=== PATIENT | male | born 1945 | race Caucasian/White ===

== ENCOUNTER → 2025-02-19 | Outpatient (CLI) | payer MEDICARE, SELFPAY ==
--- OUTSIDE RECORDS SUMMARY | 2025-02-19 06:04 | XMS RPT_ITS | CCD ---
Author Organization [facility] Care Team Providers Care Media Marketing Manager Name Role Phone Hope Ingram Unavailable Unavailable Marek Rod MD Unavailable TYREE DO, DR SHON Harrison Primary Care Physician [phone] Mala García PT Unavailable Unavailable TYREE DO, DR MENENDEZ A Primary Care Physician RIDER DO, DR VIVI Canchola Attending Unavailable TYREE DO, DR SHON Harrison Primary Care Unavailabl e TYREE DO, DR SHON Harrison Attending Unavailabl e TYREE DO, DR SHON Harrison Primary Care Unavailabl e TYREE DO, DR SHON Harrison Primary Care Unavailabl e TYREE DO, DR SHON Harrison Attending Unavailabl e TYREE DO, DR SHON Harrison Primary Care Unavailabl e FROMMELT DO, KATELYN Attending Unavailable SIRENA GARCIA Attending Unav ailable TYREE DO, DR SHON Harrison Primary Care Unavailabl e TYREE DO, DR SHON Harrison Primary Care Unavailabl e COBLENSEVEN LEVINE Attending Unavailable COBLENTZSEVEN Attending Unavailable TYREE DO, DR SHON Harrison Primary Care Unavailabl e TYREE DO, DR SHON Harrison Primary Care Unavailabl e TYREE DO, DR SHON Harrison Attending Unavailabl e TYREE DO, DR SHON Harrison Primary Care Unavailabl e TYREE DO, DR SHON Harrison Attending Unavailabl e TYREE DO, DR SHON Harrison Primary Care Unavailabl e TYREE DO, DR SHON Harrison Attending Unavailabl e TYREE DO, DR SHON Harrison Attending Unavailabl e TYREE DO, DR SHON Harrison Primary Care Unavailabl e MARGARITO GALLEGOS Attending Unavailab le TYREE DO, DR SHON Harrison Primary Care Unavailabl e CHOUJAA DOFIDEL Attending Unavailable TYREE DO, DR SHON Harrison Primary Care Unavailabl e GUME KILLIAN-BLEACH PLANT OPERATOR, SIRENA Strickland Attending Unav ailable TYREE DO, DR SHON Harrison Primary Care Unavailabl thi HOPPER MD, DR AMEZCUA Attending Unavaila ble TYREE DO, DR SHON Harrison Primary Care Unavailabl e TYREE DO, DR SHON Harrison Primary Care Unavailabl thi HOPPER MD, DR AMEZCUA Attending Unavaila ble TYREE DO, DR SHON Harrison Primary Care Unavailabl e TYREE DO, DR SHON Harrison Attending Unavailabl e TYREE DO, DR SHON Harrison Primary Care Unavailabl e FISH FELLER SEAM OPERATOR-BLEACH PLANT OPERATOR, MARGARITO Attending Unavailab le TYREE DO, DR SHON Harrison Primary Care Unavailabl e TYREE DO, DR SHON Harrison Attending Unavailabl e TYREE DO, DR SHON Harrison Primary Care Unavailabl e FISH FELLER SEAM OPERATOR-BLEACH PLANT OPERATOR, MARGARITO Attending Unavailab le TYREE DO, DR SHON Harrison Primary Care Unavailabl e TYREE DO, DR SHON Harrison Attending Unavailabl e Fish SHOT COAT TENDER, Margarito Referring Unavailable Fish SHOT COAT TENDER, Margarito Attending Unavailable Tyree, Shon Primary Care Unavailable Allergies Allergy Classification Reported Allergen(s) Allergy Type Date of Onset Reaction(s) Facility (20 sources) Hmg-Coa Reductase Inhibitors (Statins); Translations: [HMG-CoA reductase inhibitor (substance)] drug allergy 4 muscle and joint pain [facility] [place] [facility] Work Phone: (8 sources) clopidogrel; Translations: [clopidogrel] Drug Allergy Muscle pain (finding) [facility] (19 sources) Isosorbide; Translations: [isosorbide mononitrate] Drug Allergy Muscle pain (finding) [facility] Medications Current Medications Medication Drug Class(es) Dates Sig (Normalized) Sig (Original) Alcohol Swabs (5 sources) Start: 09-23-2020 Alcohol Swabs See Instructions, two times daily E11.65, # 1 EA, 0 Refill(s), Pharmacy: [address], DM (diabetes mellitus), type 2, uncontrolled Uncontrolled diabetes with stage 3 chronic kidney disease GFR 30-59, 166, cm, 09/23/20 8:50:00 Gabi HDEZ... Start Date: 09/23/20 Status: Ordered amLODIPine 10 mg oral tablet (6 sources) Dihydropyridine Calcium Channel Luna Start: 09-28-2021 amLODIPine 10 mg oral tablet Dose : 10 mg = 1 tab(s), Oral, qDay, # 90 tab(s), 3 Refill(s), [facility], 166, cm, 07/15/21 13:51:00 EDT, Height, kg, 07/15/21 13:51:00 EDT, Dosing Weight Start Date: 09/28/21 Status: Ordered Start: 09-19-2018 AMLODIPINE BES YLATE 10 MG TABS 1 tablet once daily AMLODIPINE BESYLATE [id number] Terena Garcia RN aspirin 81 mg delayed release oral tablet (15 sources) Platelet Aggregation Inhibitor, Nonsteroidal Anti-inflammatory Drug Start: 01-29-2023 aspirin 81 mg ora l delayed release tablet Dose : 81 mg = 1 tab(s), Oral, qDay, # 30 tab(s), 0 Refill(s), Pharmacy: [facility], 167, cm, 11/27/22 9:52:00 EDT, Height Start Date: 01/29/23 Status: Ordered Start: 04-10-2019 aspirin 81 mg oral tablet (chewable) Dose : 81 mg = 1 tab(s), Oral, Daily, 0 Refill(s) Start Date: 04/10/19 Status: Ordered Start: 09-19-2018 ASPIRIN 81 MG TBEC 1 tablet once daily ASPIRIN [id number] Terena Garcia RN betamethasone 0.5 mg/ml / clotrimazole 10 mg/ml topical cream (2 sources) Azole Antifungal, Corticosteroid Start: 04-25-2023 betamethasone-clotrimazole 0.05%-1% topical cream Apply 1 estrellita, Topical, BID, # 15 gram(s), 2 Refill(s), Pharmacy: [facility], Cream, 167.6, cm, 04/18/23 10:31:00 EDT, Height, 112.8, kg, 04/18/23 10:31:00 EDT, Dosing Weight Start Date: 04/25/23 Status: Ordered Blood Glucose Test Machine (5 sources) Start: 09-23-2020 Blood Glucose Test Machine S ee Instructions, check blood sugar two times daily E11.65, # 1 EA, 0 Refill(s), Pharmacy: [facility] [facility], DM (diabetes mellitus), type 2, uncontrolled Uncontrolled diabetes with stage 3 chronic kidney disease GFR 30-59, 166, cm, 09/23/20... Start Date: 09/23/20 Status: Ordered cephalexin 500 mg oral capsule (1 source) Cephalosporin Antibacterial Start: 05-31-2023 End: 06-07-2023 cephalexin 500 mg oral capsu le Dose : 500 mg = 1 cap(s), Oral, q12h, X 7 day(s), # 14 cap(s), 0 Refill(s), 06/07/23 1:29:00 PM EDT, 113.1 Start Date: 05/31/23 Stop Date: 06/07/23 Status: Ordered clopidogrel 75 mg oral tablet (7 sources) P2Y12 Platelet Inhibitor Start: 08-14-2023 Plavix 75 mg oral tablet Dos e : 75 mg = 1 tab(s), Oral, qDay, # 90 tab(s), 3 Refill(s), Pharmacy: [facility] #[id number], 167.6, cm, 08/14/23 9:14:00 EST, Height, kg, 08/14/23 9:14:00 EST, Dosing Weight Start Date: 08/14/23 Status: Ordered Start: 11-08-2022 Plavix 75 mg o ral tablet Dose : 75 mg = 1 tab(s), Oral, qDay, # 90 tab(s), 2 Refill(s), Pharmacy: [facility] #[id number], 167.6, cm, 10/12/22 9:42:00 EST, Height Start Date: 11/08/22 Status: Ordered DME MISCellaneous (2 sources) Start: 05-26-2021 DME MISCellaneous See Instructions, Incentive spirometer. Use as directed. 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 Start Date: 05/26/21 Status: Ordered doxycycline hyclate 100 mg oral capsule (1 source) Tetracycline-cl ass Drug Start: 10-22-2023 End: 11-01-2023 doxycycline hyclate 100 mg oral capsule Dose : 100 mg = 1 cap(s), Oral, BID, X 10 day(s), # 20 cap(s), 0 Refill(s), 11/01/23 2:31:00 PM EST, Pharmacy: [facility] #[id number], Nasal abscess Cellulitis of nose, 166, cm, 10/22/23 14:10:00 EST, Height, 105.9, kg, 10/22/23 14:10:00 EST, Dosing Weight Start Date: 10/22/23 Stop Date: 11/01/23 Status: Ordered 1 ml evolocumab 140 mg/ml auto-injector (7 sources) PCSK9 Inhibitor Start: 11-08-2022 inject 1 dose by subcutaneous injection every other week Repatha SureClick 140 mg/mL subcutaneous solution Dose : 140 mg =, Subcutaneous, q2wk, rotate injection sites, # 6 EA, 2 Refill(s), Pharmacy: [facility] #[id number], 167.6, cm, 10/12/22 9:42:00 EST, Height Start Date: 11/08/22 Status: Ordered Start: 08-29-2022 inject 1 dose by sub cutaneous injection every other week Repatha 140 mg/mL subcutaneous solution Dose : 140 mg =, Subcutaneous, q2wk, # 2 EA, 6 Refill(s), Pharmacy: [facility] #[id number], 167.6, cm, 08/27/22 14:19:00 EST, Height Start Date: 08/29/22 Status: Ordered Start: 07-24-2022 inject 1 dose by sub cutaneous injection every other week Repatha SureClick 140 mg/mL subcutaneous solution Dose : 140 mg =, Subcutaneous, q2wk, # 2 EA, 5 Refill(s), Pharmacy: [facility] #[id number], 164, cm, 07/24/22 9:35:00 EST, Height Start Date: 07/24/22 Status: Ordered ezetimibe 10 mg oral tablet (17 sources) Dietary Cholesterol Absorption Inhibitor Start: 11-20-2024 ezetimibe 10 mg ora l tablet Dose : 10 mg = 1 tab(s), Oral, qDay, # 90 tab(s), 1 Refill(s), Pharmacy: [facility]/pharmacy #[id number], 167, cm, 11/20/24 10:30:00 EDT, Height, kg, 11/20/24 10:30:00 EDT, Dosing Weight Start Date: 11/20/24 Status: Ordered Quantity: 90.0 Unit: tab(s) Repeat number: 2 Start: 06-02-2024 ezetimibe 10 m g oral tablet Dose : 10 mg = 1 tab(s), Oral, qDay, # 90 tab(s), 1 Refill(s), Pharmacy: [facility]/pharmacy #[id number], 165.5, cm, 05/29/24 10:35:00 EDT, Height, kg, 05/29/24 10:35:00 EDT, Dosing Weight Start Date: 06/02/24 Status: Ordered Start: 11-20-2023 ezetimibe 10 m g oral tablet Dose : 10 mg = 1 tab(s), Oral, qDay, # 90 tab(s), 1 Refill(s), [id number], 166, cm, 10/22/23 14:10:00 EST, Height, kg, 10/22/23 14:10:00 EST, Dosing Weight Start Date: 11/20/23 Status: Ordered Start: 09-21-2022 ezetimibe 10 m g oral tablet Dose : 10 mg = 1 tab(s), Oral, qDay, # 90 tab(s), 3 Refill(s), Pharmacy: [facility] #[id number], 167.6, cm, 09/21/22 9:24:00 EST, Height Start Date: 09/21/22 Status: Ordered Start: 08-27-2022 ezetimibe 10 m g oral tablet Dose : 10 mg = 1 tab(s), Oral, qDay, # 90 tab(s), 0 Refill(s) Start Date: 08/27/22 Status: Ordered Start: 09-28-2021 Zetia 10 mg or al tablet Dose : 10 mg = 1 tab(s), Oral, qDay, # 90 tab(s), 3 Refill(s), [facility]: [facility] 166, cm, 07/15/21 13:51:00 EDT, Height, kg, 07/15/21 13:51:00 EDT, Dosing Weight Start Date: 09/28/21 Status: Ordered furosemide 20 mg oral tablet (14 sources) Loop Diuretic Start: 02-22-2021 furosemide 20 mg oral tablet Dose : 20 mg = 1 tab(s), Oral, qDay, As needed for swelling, # 30 tab(s), 0 Refill(s), [facility] [address] 166, cm, 09/23/20 8:50:00 EST, Height, kg, 09/23/20 8:50:00 EST, Dosing Weight Start Date: 02/22/21 Status: Ordered glipiZIDE er 2.5 mg 24 hr extended release oral tablet (3 sources) Sulfonylurea Start: 08-27-2022 glipiZIDE 2.5 mg oral tablet, extended release Dose : 2.5 mg = 1 tab(s), Oral, qDayM, 0 Refill(s) Start Date: 08/27/22 Status: Ordered meloxicam 15 mg oral tablet (2 sources) Nonsteroidal Anti-inflammatory Drug Start: 08-27-2022 meloxicam 15 mg o ral tablet Dose : 15 mg = 1 tab(s), Oral, qDay, Take with food/milk, # 30 tab(s), 0 Refill(s) Start Date: 08/27/22 Status: Ordered Start: 10-13-2021 meloxicam 15 m g oral tablet Dose : 15 mg = 1 tab(s), Oral, qDay, once daily as needed for inflammation, # 90 tab(s), 1 Refill(s), [facility] [address] Tendinopathy of left shoulder, 166, cm, 10/13/21 8:05:00 EST, Height, kg, 10/13/21 8:05:00 EST, Dosing Weight Start Date: 10/13/21 Status: Ordered metoprolol tartrate 50 mg oral tablet (20 sources) beta-Adrenergic Luna Start: 10-08-2024 Metopr olol Tartrate 50 mg oral tablet Dose : 50 mg = 1 tab(s), Oral, BID, # 180 tab(s), 3 Refill(s), Pharmacy: [facility]/pharmacy #[id number], Hypertension Frequent PVCs, 167.6, cm, 08/26/24 10:21:00 EST, Height, kg, 08/26/24 10:21:00 EST, Dosing Weight Start Date: 10/08/24 Status: Ordered Quantity: 180.0 Unit: tab(s) Repeat number: 4 Indications: Essential (primary) hypertension; Ventricular premature depolarization; Start: 06-02-2024 Metoprolol Tar trate 50 mg oral tablet Dose : 50 mg = 1 tab(s), Oral, BID, # 60 tab(s), 1 Refill(s), Pharmacy: [facility]/pharmacy #[id number], Hypertension Frequent PVCs, 165.5, cm, 05/29/24 10:35:00 EDT, Height, kg, 05/29/24 10:35:00 EDT, Dosing Weight Start Date: 06/02/24 Status: Ordered Start: 11-20-2023 Metoprolol Tar trate 50 mg oral tablet Dose : 50 mg = 1 tab(s), Oral, BID, # 60 tab(s), 1 Refill(s), Pharmacy: [facility] #[id number], Hypertension Frequent PVCs, 166, cm, 01/11/24 9:24:00 EDT, Height, kg, 01/11/24 9:24:00 EDT, Dosing Weight Start Date: 01/11/24 Status: Ordered Start: 07-13-2023 Metoprolol Tar trate 50 mg oral tablet Dose : 50 mg = 1 tab(s), Oral, qDay, 0 Refill(s) Start Date: 07/13/23 Status: Ordered Start: 09-21-2022 End: 10-13-2022 Metoprolol Tartrate 50 mg or al tablet Start: 10/13/22 10:33:00 EST, Dose = 50 mg, = 1 tab(s), Oral, 0, 10/13/22 10:13:00 EST Start Date: 10/13/22 Stop Date: 10/13/22 Status: Completed Start: 08-28-2022 End: 08-29-2022 metoprolol succinate 25 mg o ral TABLET extended release Start: 08/29/22 8:00:00 EST, Dose = 25 mg, = 1 tab(s), Oral, give with food, 0, 08/28/22 15:06:00 EST Start Date: 08/29/22 Stop Date: 08/29/22 Status: Completed Start: 08-28-2022 End: 08-28-2022 Lopressor Start: 08/28/22 8: 00:00 EST, Dose = 25 mg, = 1 tab(s), Oral, 08/27/22 14:48:00 EST Start Date: 08/28/22 Stop Date: 08/28/22 Status: Completed Start: 09-28-2021 Metoprolol Tar trate 50 mg oral tablet Dose : 50 mg = 1 tab(s), Oral, qDay, # 90 tab(s), 3 Refill(s), [facility]: [facility] 166, cm, 07/15/21 13:51:00 EDT, Height, kg, 07/15/21 13:51:00 EDT, Dosing Weight Start Date: 09/28/21 Status: Ordered Start: 07-10-2014 METOPROLOL TAR TRATE 50 MG TABS 1 tablet once daily METOPROLOL TARTRATE [id number] Chaitanya Garcia RN predniSONE 20 mg oral tablet (1 source) Start: 01-23-2024 End: 01-30-2024 take 2 tablets by mouth once daily, then take 1 tablet by mouth at mealtime predniSONE 20 mg oral tablet See Instructions, 2 tabs daily for 5 days, then 1 tab for 2 days. with food or milk, # 12 tab(s), 0 Refill(s), 01/30/24 1:50:00 PM EDT, Pharmacy: [facility] #[id number], 166, cm, 01/23/24 13:07:00 EDT, Height, kg, 01/11/24 9:24:00 EDT, Dosing Weight Start Date: 01/23/24 Stop Date: 01/30/24 Status: Ordered ticagrelor 90 mg oral tablet (3 sources) Start: 08-29-2022 ticagrelor 90 mg oral tablet Dose : 90 mg = 1 tab(s), Oral, q12h, # 60 tab(s), 3 Refill(s), Pharmacy: [facility] #[id number], 167.6, cm, 08/27/22 14:19:00 EST, Height Start Date: 08/29/22 Status: Ordered tiZANidine 4 mg oral tablet (1 source) Central alpha-2 Adrenergic Agonist Start: 01-11-2024 tiZANidine 4 mg oral tablet Dose : 4 mg = 1 tab(s), Oral, q8h, # 30 tab(s), 0 Refill(s), Pharmacy: [facility] #[id number], Strain of muscle of right groin region, 166, cm, 01/11/24 9:24:00 EDT, Height, kg, 01/11/24 9:24:00 EDT, Dosing Weight Start Date: 01/11/24 Status: Ordered triamcinolone acetonide 0.001 mg/mg oral paste (19 sources) Corticosteroid Start: 11-20-2024 triamcinolone 0.1% topical paste Apply 1 estrellita, Topical, BID, 16 oz. jar. Apply to Armpit and Groin as needed for itching, # 454 gram(s), 1 Refill(s), Pharmacy: [facility]/pharmacy #[id number], Paste, 167, cm, 11/20/24 10:30:00 EDT, Height, 101.3, kg, 11/20/24 10:30:00 EDT, Dosing Weight Start Date: 11/20/24 Status: Ordered Quantity: 454.0 Unit: g Repeat number: 2 Start: 05-26-2021 triamcinolone 0.1% topical paste Apply 1 estrellita, Topical, BID, 16 oz. jar. Apply to Armpit and Groin as needed for itching, # 454 gram(s), 1 Refill(s), [facility]: [facility] Paste, 166, cm, 05/26/21 11:28:00 EDT, Height, 115.3, kg, 05/26/21 11:28:00 EDT, Dosing Weight Start Date: 05/26/21 Status: Ordered Completed/Discontinued Medications Medication Drug Class(es) Dates Sig (Normalized) Sig (Original) losartan potassium 100 mg oral tablet (1 source) Angiotensin 2 Receptor Luna Start: 09-19-2018 LOSARTAN POTASSIUM 100 MG TABS 1 tablet once daily LOSARTAN POTASSIUM [id number] Terena Garcia RN naproxen sodium 220 mg oral tablet (1 source) Nonsteroidal Anti-inflammatory Drug Start: 07-10-2014 ALEVE 220 MG TABS takes 1 tablet as needed NAPROXEN SODIUM [id number] 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 Problems Active Problems Problem Classification Problem Date Documented Da te Episodic/Chronic Abdominal pain (1 source) Lower abdominal pain; Translations: [Lower abdominal pain, unspecified] Onset: 01-10-2024 Episodic Acute and unspecified renal failure (1 source) Acute renal failure syndrome; Translations: [Acute kidney failure, unspecified] Episodic Acute myocardial infarction (1 source) Non-ST elevation (NSTEMI) myocardial infarction; Translations: [Non-ST elevation (NSTEMI) myocardial infarction] Chronic Cardiac dysrhythmias (1 source) Ventricular premature depolarization; Translations: [Ventricular premature depolarization] Onset: 02-13-2025 Chronic Chronic kidney disease (5 sources) Chronic kidney disease stage 3; Translations: [Chronic kidney disease, stage 3 unspecified] Chronic Complication of device; implant or graft (1 source) Stenosis due to any device, implant AND/OR graft; Translations: [Stenosis of other cardiac prosthetic devices, implants and grafts, initial encounter] Episodic Coronary atherosclerosis and other heart disease (20 sources) Coronary arteriosclerosis; Translations: [Coronary atherosclerosis] Onset: 02-13-2025 03-03-2020 Chronic Comment on above: History of angioplas ty for which I do not have a report, bypass surgery in 2009. He is having more symptoms similar to when he needed bypass surgery. EKG in room shows nonspecific T wave changes. Suspect CAD is worsened. Coronary atherosclerosis and other heart disease (1 source) Aortocoronary bypass graft present; Translations: [Presence of aortocoronary bypass graft] Episodic Diabetes mellitus with complications (5 sources) Chronic kidney disease due to type 2 diabetes mellitus; Translations: [Type 2 diabetes mellitus with diabetic chronic kidney disease] Chronic Diabetes mellitus without complication (20 sources) Diabetic - good control; Translations: [Type 2 diabetes mellitus without complications] Onset: 05-29-2024 03-15-2020 Chronic Diseases of white blood cells (10 sources) Leukocytosis 09-11-2023 Chronic Disorders of lipid metabolism (20 sources) Hyperlipidemia; Translations: [Hyperlipidemia, unspecified] 12-29-2021 Chronic E Codes: Fall (10 sources) Fall in home 09-11-2023 Essential hypertension (20 sources) Hypertensive disorder; Translations: [Essential hypertension] 03-03-2015 Chronic Comment on above: Blood pressure goal is less than 140/90. Checks labs through PCP. Tolerating medication. 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 Patient peña ving difficulty doing ADLs. Cardiac venous pulmonary. He had PFTs completed today. With his history and abnormal EKG in office suspect CAD is worsened. Other lower respiratory disease (2 sources) Cough 12-29-2024 Episodic Other lower respiratory disease (1 source) Shortness of breath; Translations: [Shortness of breath] Onset: 02-13-2025 Episodic Other nervous system disorders (1 source) Abnormal gait; Translations: [Other abnormalities of gait and mobility] Episodic Other non-traumatic joint disorders (4 sources) Hip pain 02-05-2024 Episodic Other nutritional; endocrine; and metabolic disorders (10 sources) Morbid obesity 07-13-2023 Chronic Residual codes; unclassified (20 sources) Obstructive sleep apnea syndrome; Translations: [Obstructive sleep apnea (adult) (pediatric)] 03-03-2020 Chronic Comment on above: On CPAP at night, to lerating well. Residual codes; unclassified (1 source) Past history of procedure; Translations: [Other specified postprocedural states] Episodic Spondylosis; intervertebral disc disorders; other back problems (20 sources) Degeneration of lumbar intervertebral disc; Translations: [Other intervertebral disc degeneration, lumbar region] 03-15-2020 Chronic Spondylosis; intervertebral disc disorders; other back problems (20 sources) Stenosis of lateral recess of lumbar spine; Translations: [Spinal stenosis of lumbar region] Onset: 12-18-2016 12-18-2016 Episodic Syncope (19 sources) Syncope and collapse 09-21-2020 Episodic Unclassified (1 source) Unknown / UNK(Unknown) Onset: 07-21-2017 Unclassified (1 source) History of left ankle arthroplasty; Translations: [Presence of left artificial ankle joint] Onset: 12-16-2018 12-16-2018 Unclassified (20 sources) Patient encounter status; Translations: [Presence of left artificial hip joint] Onset: 08-22-2017 08-23-2017 Urinary tract infections (11 sources) Urinary tract infectious disease; Translations: [Urinary tract infection, site not specified] Onset: 05-31-2023 Episodic Past or Other Problems Problem Classification Problem Date Documented Da te Episodic/Chronic Other upper respiratory disease (2 sources) Abscess, furuncle and carbuncle of nose; Translations: [Abscess, furuncle and carbuncle of nose] Onset: 10-22-2023 Episodic Residual codes; unclassified (1 source) History of operative procedure on shoulder; Translations: [Presence of right artificial shoulder joint] Onset: 09-29-2015 09-29-2015 Episodic Unclassified (1 source) CONGESTION,COUGH Onset: 07-21-2017 Unclassified (1 source) Problem Results Test Name Value Interpretation Reference Range Facility XR CHEST 2 VIEWSon XR CHEST 2 VIEWS ORIGINAL EXAMINATION: TWO XRAY VIEWS OF THE CHEST 01/19/2025 12:05 pm COMPARISON: 09/03/2023 HISTORY: ORDERING SYSTEM PROVIDED HISTORY: Reason for Exam: SOB FINDINGS: Pulmonary vascular cephalization and veiling of the lower lobe vessels is noted. There is blunting of the costophrenic angles. Heart is not enlarged. Patient status post coronary bypass graft. Skeletal elements remain intact. IMPRESSION: 1. Mild pulmonary edema pattern. 2. Status post coronary bypass graft. Interpreted by: Dick Dave DO Preliminary Report By: Dick Dave DO Electronically signed By Dick Dave DO Dictated Date: 01/20/2025 4:55:01 PM Prelim Date: 01/20/2025 4:55:35 PM Sign Date: 01/20/2025 4:55:35 PM Ordering Provider: MARGARITO RIVERO Normal [facility] .Auto Diffon 01-19-2025 Basophil, Absolute 0.0 10 3/mcL Normal 0.0-0.3 [facility] Comment on above: Performed By: #### G FR, CMP, PBNP, LIPID, ANEU, ADIFF, CBC, TSH #### [address] [address] Basophils/100 WBC (Bld) 0.7 % Normal 0.0-2.5 [facility] Comment on above: Performed By: #### G FR, CMP, PBNP, LIPID, ANEU, ADIFF, CBC, TSH #### [address] [address] Eosinophil, Absolute 0.2 10 3/mcL Normal 0.0-0.7 [facility] Comment on above: Performed By: #### G FR, CMP, PBNP, LIPID, ANEU, ADIFF, CBC, TSH #### [address] [address] Eosinophils/100 WBC (Bld) 2.6 % Normal 0.0-6.0 [facility] Comment on above: Performed By: #### G FR, CMP, PBNP, LIPID, ANEU, ADIFF, CBC, TSH #### [address] [address] Lymphocyte, Absolute 1.3 10 3/mcL Normal 0.9-4.3 [facility] Comment on above: Performed By: #### G FR, CMP, PBNP, LIPID, ANEU, ADIFF, CBC, TSH #### [address] [address] Lymphocytes/100 WBC (Bld) 18.9 % Low 20.0-40.0 [facility] Comment on above: Performed By: #### G FR, CMP, PBNP, LIPID, ANEU, ADIFF, CBC, TSH #### [address] [address] Monocyte, Absolute 0.6 10 3/mcL Normal 0.1-1.4 [facility] Comment on above: Performed By: #### G FR, CMP, PBNP, LIPID, ANEU, ADIFF, CBC, TSH #### [address] [place], [place] [address] Monocytes/100 WBC (Bld) 8.7 % Normal 2.0-13.0 [facility] Comment on above: Performed By: #### G FR, CMP, PBNP, LIPID, ANEU, ADIFF, CBC, TSH #### [address] [place], [place] [address] Neutrophils/100 WBC (Bld) 69.1 % Normal 50.0-75.0 [facility] Comment on above: Performed By: #### G FR, CMP, PBNP, LIPID, ANEU, ADIFF, CBC, TSH #### [address] [address] .GFRon 01-19-2025 Estimated Glomerular Filtration Rate 60 ml/min/1.73sqm Normal [facility] Comment on above: Result Comment: Stages of Chronic Kidney Disease (CKD) Stage Description eGFR(ml/min/1.73 sq.m.) CKD 1 Normal kidney function or >=90 normal kindney function with possible kidney damage (ex. Proteinuria) CKD 2 Kidney damage with mild loss 60-89 of kidney function CKD 3a Mild to moderate loss of kidney 45-59 function CKD 3b Moderate to severe loss of 30-44 of kindey function CKD 4 Severe loss of kidney function 15-29 CKD 5 Kidney failure <15 Note: (go live 2024) the eGFR calculation was updated to the 2020 CKD-EPI creatinine equation without a race factor to calculate the eGFR results. Performed By: #### G FR, CMP, PBNP, LIPID, ANEU, ADIFF, CBC, TSH #### [address] [place], [place] [address] .NEUABSon 01-19-2025 Neutrophil, Absolute 4.7 10 3/mcL Normal 2.3-8.1 [facility] Comment on above: Performed By: #### G FR, CMP, PBNP, LIPID, ANEU, ADIFF, CBC, TSH #### [address] [address] CBCon 01-19-2025 Erythrocyte distribution width (RBC) [Ratio] 18.0 % High 11.5-15.5 [facility] Comment on above: Performed By: #### G FR, CMP, PBNP, LIPID, ANEU, ADIFF, CBC, TSH #### [address] [place], [place] [address] Hematocrit (Bld) [Volume fraction] 34.4 % Low 40.0-52.0 [facility] Comment on above: Performed By: #### G FR, CMP, PBNP, LIPID, ANEU, ADIFF, CBC, TSH #### [address] [address] Hgb 11.3 G/dL Low 13.0-17.5 [facility] Comment on above: Performed By: #### G FR, CMP, PBNP, LIPID, ANEU, ADIFF, CBC, TSH #### [address] [address] MCH (RBC) [Entitic mass] 26.9 pg Low 27.0-33.0 [facility] Comment on above: Performed By: #### G FR, CMP, PBNP, LIPID, ANEU, ADIFF, CBC, TSH #### [address] [address] MCHC 32.8 G/dL Normal 32.0-36.0 [facility] Comment on above: Performed By: #### G FR, CMP, PBNP, LIPID, ANEU, ADIFF, CBC, TSH #### [address] [address] MCV (RBC) [Entitic vol] 82.1 fL Normal 81.0-100.0 [facility] Comment on above: Performed By: #### G FR, CMP, PBNP, LIPID, ANEU, ADIFF, CBC, TSH #### [address] [address] Platelet 206 10 3/mcL Normal 150-450 [facility] Comment on above: Performed By: #### G FR, CMP, PBNP, LIPID, ANEU, ADIFF, CBC, TSH #### [address] [address] Platelet mean volume (Bld) [Entitic vol] 8.9 fL Normal 6.4-10.5 [facility] Comment on above: Performed By: #### G FR, CMP, PBNP, LIPID, ANEU, ADIFF, CBC, TSH #### [place] [address] RBC 4.19 10 6/mcL Low 4.50-6.00 [facility] Comment on above: Performed By: #### G FR, CMP, PBNP, LIPID, ANEU, ADIFF, CBC, TSH #### [place] [address] WBC 6.7 10 3/mcL Normal 4.5-10.8 [facility] Comment on above: Performed By: #### G FR, CMP, PBNP, LIPID, ANEU, ADIFF, CBC, TSH #### [address] [address] CMPon 01-19-2025 Albumin Level 3.1 G/dL Low 3.4-4.8 [facility] Comment on above: Performed By: #### G FR, CMP, PBNP, LIPID, ANEU, ADIFF, CBC, TSH #### [address] Albumin/Globulin [Mass ratio] 0.7 {ratio} Low 1.1-2.5 [facility] Comment on above: Performed By: #### G FR, CMP, PBNP, LIPID, ANEU, ADIFF, CBC, TSH #### [place] [address] ALP [Catalytic activity/Vol] 111 U/L Normal 40-135 [facility] Comment on above: Performed By: #### G FR, CMP, PBNP, LIPID, ANEU, ADIFF, CBC, TSH #### [place] [address] ALT [Catalytic activity/Vol] 9 U/L Low 16-63 [facility] Comment on above: Performed By: #### G FR, CMP, PBNP, LIPID, ANEU, ADIFF, CBC, TSH #### [address] [address] AST [Catalytic activity/Vol] 25 U/L Normal 10-40 [facility] Comment on above: Performed By: #### G FR, CMP, PBNP, LIPID, ANEU, ADIFF, CBC, TSH #### [address] [address] Bili Total 0.9 mg/dL Normal 0.2-1.0 [facility] Comment on above: Result Comment: Use of this assay is not recommended for patients undergoing treatment with eltrombopag due to the potential for falsely elevated results. Performed By: #### G FR, CMP, PBNP, LIPID, ANEU, ADIFF, CBC, TSH #### [address] [address] BUN/Creatinine Ratio 14 ratio Normal 7-27 [facility] Comment on above: Performed By: #### G FR, CMP, PBNP, LIPID, ANEU, ADIFF, CBC, TSH #### [address] [address] Calcium [Mass/Vol] 9.0 mg/dL Normal 8.4-10.2 [facility] Comment on above: Performed By: #### G FR, CMP, PBNP, LIPID, ANEU, ADIFF, CBC, TSH #### [address] [address] Chloride [Moles/Vol] 103 mmol/L Normal 98-107 [facility] Comment on above: Performed By: #### G FR, CMP, PBNP, LIPID, ANEU, ADIFF, CBC, TSH #### [address] [address] CO2 [Moles/Vol] 30 mmol/L Normal 23-31 [facility] Comment on above: Performed By: #### G FR, CMP, PBNP, LIPID, ANEU, ADIFF, CBC, TSH #### [address] [address] Creatinine [Mass/Vol] 1.23 mg/dL High 0.67-1.17 [facility] Comment on above: Performed By: #### G FR, CMP, PBNP, LIPID, ANEU, ADIFF, CBC, TSH #### [address] [address] Electrolyte Balance 7.0 mEq/L Normal 4.0-15.0 [facility] Comment on above: Performed By: #### G FR, CMP, PBNP, LIPID, ANEU, ADIFF, CBC, TSH #### [address] [address] Globulin 4.5 G/dL High 2.7-4.4 [facility] Comment on above: Performed By: #### G FR, CMP, PBNP, LIPID, ANEU, ADIFF, CBC, TSH #### [address] [address] Glucose [Mass/Vol] 123 mg/dL High 83-110 [facility] Comment on above: Performed By: #### G FR, CMP, PBNP, LIPID, ANEU, ADIFF, CBC, TSH #### [address] [address] Potassium [Moles/Vol] 4.1 mmol/L Normal 3.5-5.1 [facility] Comment on above: Performed By: #### G FR, CMP, PBNP, LIPID, ANEU, ADIFF, CBC, TSH #### [address] [address] Sodium [Moles/Vol] 140 mmol/L Normal 136-145 [facility] Comment on above: Performed By: #### G FR, CMP, PBNP, LIPID, ANEU, ADIFF, CBC, TSH #### [address] [address] Total Protein 7.6 G/dL Normal 6.4-8.2 [facility] Comment on above: Performed By: #### G FR, CMP, PBNP, LIPID, ANEU, ADIFF, CBC, TSH #### [address] [place], [place] [address] Urea nitrogen [Mass/Vol] 17 mg/dL Normal 7-18 [facility] Comment on above: Performed By: #### G FR, CMP, PBNP, LIPID, ANEU, ADIFF, CBC, TSH #### [address] [place], [place] [address] LABORATORYOrdered By: SYSTEM SYSTEM on 01-19-2025 Albumin BCP dye [Mass/Vol] 3.1 G/dL Low 3.4 - 4.8 G/dL AO ADM SS Albumin/Globulin [Mass ratio] 0.7 {ratio} Low 1.1 - 2.5 ratio AO ADM SS ALP [Catalytic activity/Vol] 111 U/L Normal 40 - 135 U/L AO ADM SS ALT With P-5'-P [Catalytic activity/Vol] 9 U/L Low 16 - 63 U/L AO ADM SS AST With P-5'-P [Catalytic activity/Vol] 25 U/L Normal 10 - 40 U/L AO ADM SS Basophils (Bld) [#/Vol] 0.0 103/mcL Normal 0.0 - 0.3 10^3/mcL AO Workflow SS Basophils/100 WBC (Bld) 0.7 % Normal 0.0 - 2.5 % AO Workflow SS Bilirubin [Mass/Vol] 0.9 mg/dL Normal 0.2 - 1 .0 mg/dL AO ADM SS Comment on above: Interpretive Data: U se of this assay is not recommended for patients undergoing treatment with eltrombopag due to the potential for falsely elevated results. Calcium [Mass/Vol] 9.0 mg/dL Normal 8.4 - 10. 2 mg/dL AO ADM SS Chloride [Moles/Vol] 103 mmol/L Normal 98 - 10 7 mmol/L AO ADM SS CO2 [Moles/Vol] 30 mmol/L Normal 23 - 31 mmol/L AO ADM SS Creatinine [Mass/Vol] 1.23 mg/dL High 0.67 - 1.17 mg/dL AO ADM SS Electrolyte Balance 7.0 mEq/L Normal 4.0 - 15 .0 mEq/L AO ADM SS Eosinophil, Absolute 0.2 103/mcL Normal 0.0 - 0 .7 10^3/mcL AO Workflow SS Eosinophils/100 WBC (Bld) 2.6 % Normal 0.0 - 6.0 % AO Workflow SS Erythrocyte distribution width (RBC) [Ratio] 18.0 % High 11.5 - 15.5 % AO Workflow SS Estimated Glomerular Filtration Rate 60 ml/min/1.73sqm Invalid Interpretation Code AO Chemistry S Comment on above: Interpretive Data: Stages of Chronic Kidney Disease (CKD) Stage Description eGFR(ml/min/1.73 sq.m.) CKD 1 Normal kidney function or >=90 normal kindney function with possible kidney damage (ex. Proteinuria) CKD 2 Kidney damage with mild loss 60-89 of kidney function CKD 3a Mild to moderate loss of kidney 45-59 function CKD 3b Moderate to severe loss of 30-44 of kindey function CKD 4 Severe loss of kidney function 15-29 CKD 5 Kidney failure <15 Note: (go live 2024) the eGFR calculation was updated to the 2020 CKD-EPI creatinine equation without a race factor to calculate the eGFR results. Globulin 4.5 G/dL High 2.7 - 4.4 G/dL AO ADM SS Glucose [Mass/Vol] 123 mg/dL High 83 - 110 mg/dL AO ADM SS Hematocrit (Bld) [Volume fraction] 34.4 % Low 40.0 - 52.0 % AO Workflow SS Hemoglobin (Bld) [Mass/Vol] 11.3 G/dL Low 13.0 - 17.5 G/dL AO Workflow SS Lymphocytes (Bld) [#/Vol] 1.3 103/mcL Normal 0.9 - 4.3 10^3/mcL AO Workflow SS Lymphocytes/100 WBC (Bld) 18.9 % Low 20.0 - 40.0 % AO Workflow SS MCH (RBC) [Entitic mass] 26.9 pg Low 27.0 - 33.0 pg AO Workflow SS MCHC 32.8 G/dL Normal 32.0 - 36.0 G/dL AO Workflow SS MCV (RBC) [Entitic vol] 82.1 fL Normal 81.0 - 100.0 fL AO Workflow SS Monocytes (Bld) [#/Vol] 0.6 103/mcL Normal 0.1 - 1.4 10^3/mcL AO Workflow SS Monocytes/100 WBC (Bld) 8.7 % Normal 2.0 - 13.0 % AO Workflow SS Natriuretic peptide.B prohormone N-Terminal [Mass/Vol] 6537 pg/mL High 0 - 450 pg/mL AO ADM SS Comment on above: Interpretive Data: N T-proBNP results of less than 300 pg/mL effectively rules out acute congestive heart failure with 99% negative predictive value. Neutrophils (Bld) [#/Vol] 4.7 103/mcL Normal 2.3 - 8.1 10^3/mcL AO Workflow SS Neutrophils/100 WBC (Bld) 69.1 % Normal 50.0 - 75.0 % AO Workflow SS Platelet mean volume (Bld) [Entitic vol] 8.9 fL Normal 6.4 - 10.5 fL AO Workflow SS Platelets (Bld) [#/Vol] 206 103/mcL Normal 150 - 450 10^3/mcL AO Workflow SS Potassium [Moles/Vol] 4.1 mmol/L Normal 3.5 - 5.1 mmol/L AO ADM SS Protein [Mass/Vol] 7.6 G/dL Normal 6.4 - 8.2 G/dL AO ADM SS RBC (Bld) [#/Vol] 4.19 106/mcL Low 4.50 - 6.0 0 10^6/mcL AO Workflow SS Sodium [Moles/Vol] 140 mmol/L Normal 136 - 145 mmol/L AO ADM SS TSH Qn 1.55 m[IU]/L Normal 0.36 - 3.74 mcIU/mL AO ADM SS Urea nitrogen [Mass/Vol] 17 mg/dL Normal 7 - 18 mg/dL AO ADM SS Urea nitrogen/Creatinine [Mass ratio] 14 ratio Normal 7 - 27 ratio AO ADM SS WBC (Bld) [#/Vol] 6.7 103/mcL Normal 4.5 - 10.8 10^3/mcL AO Workflow SS LABORATORYOrdered By: Yahaira Stein on 01-19-2025 Cholesterol [Mass/Vol] 129 mg/dL Normal 0 - 200 mg/dL AO ADM SS Comment on above: Interpretive Data: C holesterol Reference Interval: Less than 200 Desirable 200-239 Borderline high risk 240 and above High risk Cholesterol in HDL [Mass/Vol] 34 mg/dL Low 40 - 60 mg/dL AO ADM SS Cholesterol in LDL [Mass/Vol] 82 mg/dL Normal 0 - 130 mg/dL AO ADM SS Triglyceride [Mass/Vol] 66 mg/dL Normal 0 - 150 mg/dL AO ADM SS Comment on above: Interpretive Data: T riglyceride Reference Interval: Less than 150 Normal 150-199 Borderline high risk 200-499 High risk 500 or higher Very high risk LIPIDon 01-19-2025 Cholesterol [Mass/Vol] 129 mg/dL Normal 0-200 [facility] Comment on above: Result Comment: Chol esterol Reference Interval: Less than 200 Desirable 200-239 Borderline high risk 240 and above High risk Performed By: #### G FR, CMP, PBNP, LIPID, ANEU, ADIFF, CBC, TSH #### [address] [address] Cholesterol in HDL [Mass/Vol] 34 mg/dL Low 40-60 [facility] Comment on above: Performed By: #### G FR, CMP, PBNP, LIPID, ANEU, ADIFF, CBC, TSH #### [address] [address] Cholesterol in LDL [Mass/Vol] 82 mg/dL Normal 0-130 [facility] Comment on above: Performed By: #### G FR, CMP, PBNP, LIPID, ANEU, ADIFF, CBC, TSH #### [address] [address] Triglyceride [Mass/Vol] 66 mg/dL Normal 0-150 [facility] Comment on above: Result Comment: Trig lyceride Reference Interval: Less than 150 Normal 150-199 Borderline high risk 200-499 High risk 500 or higher Very high risk Performed By: #### G FR, CMP, PBNP, LIPID, ANEU, ADIFF, CBC, TSH #### [address] [address] PBNPon 01-19-2025 Natriuretic peptide B (Bld) [Mass/Vol] 6537 pg/mL High 0-450 [facility] Comment on above: Result Comment: NT-p roBNP results of less than 300 pg/mL effectively rules out acute congestive heart failure with 99% negative predictive value. Performed By: #### G FR, CMP, PBNP, LIPID, ANEU, ADIFF, CBC, TSH #### [address] [address] TSHon 01-19-2025 TSH Qn 1.55 m[IU]/L Normal 0.36-3.74 [facility] Comment on above: Performed By: #### G FR, CMP, PBNP, LIPID, ANEU, ADIFF, CBC, TSH #### [address] [place], [place] [address] LABORATORYOrdered By: Lynn Linares on 05-29-2024 Albumin DL <= 20 mg/L (U) [Mass/Vol] 2802 mcg/dL Invalid Interpretation Code AO ADM SS Albumin/Creatinine DL <= 20 mg/L (U) [Mass ratio] 29 mcg/mg Normal 0 - 30 mcg/mg AO ADM SS Creatinine (U) [Mass/Vol] 95.1 mg/dL Normal 39.0 - 259.0 mg/dL AO ADM SS MALBRon 05-29-2024 U Creatinine 95.1 mg/dL Normal 39.0-259.0 [facility] Comment on above: Performed By: #### M ALBR #### [address] [address] U Microalb 2802 mcg/dL Normal [facility] Comment on above: Performed By: #### M ALBR #### [address] [address] U Ratio Alb/Cre 29 mcg/mg Normal 0-30 [facility] Comment on above: Performed By: #### M ALBR #### [address] [address] .Auto Diffon 01-23-2024 Basophil, Absolute 0.0 10 3/mcL Normal 0.0-0.2 [facility] ([place]) Comment on above: Performed By: #### C BC, ADIFF, GFR, MDW, BMP, ANEU #### [facility] [address] [place] [address] Basophils/100 WBC (Bld) 0.3 % Normal 0.0-2.5 [facility] ([place]) Comment on above: Performed By: #### C BC, ADIFF, GFR, MDW, BMP, ANEU #### [address] [address] Eosinophil, Absolute 0.1 10 3/mcL Normal 0.0-0.4 [facility] ([place]) Comment on above: Performed By: #### C BC, ADIFF, GFR, MDW, BMP, ANEU #### [address] [address] Eosinophils/100 WBC (Bld) 0.5 % Normal 0.0-7.0 [facility] ([place]) Comment on above: Performed By: #### C BC, ADIFF, GFR, MDW, BMP, ANEU #### [address] [address] Lymphocyte, Absolute 0.7 10 3/mcL Low 0.8-3.9 [facility] ([place]) Comment on above: Performed By: #### C BC, ADIFF, GFR, MDW, BMP, ANEU #### [address] [address] Lymphocytes/100 WBC (Bld) 4.7 % Low 10.0-50.0 [facility] ([place]) Comment on above: Performed By: #### C BC, ADIFF, GFR, MDW, BMP, ANEU #### [address] [address] Monocyte, Absolute 1.5 10 3/mcL High 0.2-1.0 [facility] ([place]) Comment on above: Performed By: #### C BC, ADIFF, GFR, MDW, BMP, ANEU #### [address] [address] Monocytes/100 WBC (Bld) 10.8 % Normal 1.7-13.0 [facility] ([place]) Comment on above: Performed By: #### C BC, ADIFF, GFR, MDW, BMP, ANEU #### [address] [address] Neutrophils/100 WBC (Bld) 83.7 % High 37.0-80.0 [facility] ([place]) Comment on above: Performed By: #### C BC, ADIFF, GFR, MDW, BMP, ANEU #### [address] [address] .GFRon 01-23-2024 GFR 50 ml/min/1.73sqm Normal [facility] ([place]) Comment on above: Result Comment: GFR Population mean for , Non- Americans Ages 20-29 = 116 mL/min/1.73 sq.m. Ages 30-39 = 107 mL/min/1.73 sq.m. Ages 40-49 = 99 mL/min/1.73 sq.m. Ages 50-59 = 93 mL/min/1.73 sq.m. Ages 60-69 = 85 mL/min/1.73 sq.m. Ages 70+ = 75 mL/min/1.73 sq.m. Chronic Kidney Disease: Less than 60 mL/min/1.73 square meters End Stage Renal Disease: Less than 15 mL/min/1.73 square meters Performed By: #### C BC, ADIFF, GFR, MDW, BMP, ANEU #### [place] [address] GFR Non- 41 ml/min/1.73sqm Normal [facility] ([place]) Comment on above: Result Comment: GFR Population mean for , Non- Americans Ages 20-29 = 116 mL/min/1.73 sq.m. Ages 30-39 = 107 mL/min/1.73 sq.m. Ages 40-49 = 99 mL/min/1.73 sq.m. Ages 50-59 = 93 mL/min/1.73 sq.m. Ages 60-69 = 85 mL/min/1.73 sq.m. Ages 70+ = 75 mL/min/1.73 sq.m. Chronic Kidney Disease: Less than 60 mL/min/1.73 square meters End Stage Renal Disease: Less than 15 mL/min/1.73 square meters Performed By: #### C BC, ADIFF, GFR, MDW, BMP, ANEU #### [address] [address] .NEUABSon 01-23-2024 Neutrophil, Absolute 11.7 10 3/mcL High 2.9-6.2 A [facility] ([place]) Comment on above: Performed By: #### C OCTAVIO MARTINEZ GFR, MATTEO, BETH, ANEU #### [place] [address] B12on 01-23-2024 Cobalamin (Vitamin B12) [Mass/Vol] 1343 pg/mL High 211-911 [facility] ([place]) Comment on above: Performed By: #### C OCTAVIO MARTINEZ GFR, MATTEO, BETH, ANEU #### [place] [address] CBCon 01-23-2024 Erythrocyte distribution width (RBC) [Ratio] 14.8 % High 11.5-14.5 [facility] ([place]) Comment on above: Performed By: #### U A, UAMIC #### [place] [address] Hematocrit (Bld) [Volume fraction] 38.7 % Low 42.0-52.0 [facility] ([place]) Comment on above: Performed By: #### U A, UAMIC #### [place] [address] Hgb 13.0 G/dL Low 14.0-18.0 [facility] ([place]) Comment on above: Performed By: #### U A, UAMIC #### [place] [address] MCH (RBC) [Entitic mass] 30.2 pg Normal 27.0-31.2 [facility] ([place]) Comment on above: Performed By: #### U A, UAMIC #### [place] [address] MCHC 33.5 G/dL Normal 31.8-35.4 [facility] ([place]) Comment on above: Performed By: #### U A, UAMIC #### [place] [address] MCV (RBC) [Entitic vol] 90.4 fL Normal 80.0-94.0 [facility] ([place]) Comment on above: Performed By: #### U A, UAMIC #### [address] [address] Platelet 516 10 3/mcL High 130-400 [facility] ([place]) Comment on above: Performed By: #### Moise Harrison UAMIC #### [address] [address] Platelet mean volume (Bld) [Entitic vol] 8.0 fL Normal 7.4-10.4 [facility] ([place]) Comment on above: Performed By: #### Moise Harrison UAMIC #### [address] [address] RBC 4.29 10 6/mcL Normal 4.04-6.13 [facility] ([place]) Comment on above: Performed By: #### Moise Harrison UAMIC #### [address] [address] WBC 14.0 10 3/mcL High 4.6-10.8 [facility] ([place]) Comment on above: Performed By: #### SUSY HarrisMIC #### [address] [address] CKon 01-23-2024 CK [Catalytic activity/Vol] 52 U/L Normal 39-308 [facility] ([place]) Comment on above: Performed By: #### C OCTAVIO MARTINEZ, DANK, MATTEO, BMP, ANEU #### [address] [address] CMPon 01-23-2024 Albumin Level 2.4 G/dL Low 3.4-4.8 [facility] ([place]) Comment on above: Performed By: #### C OCTAVIO MARTINEZ GFR, MATTEO, BMP, ANEU #### [address] [address] Albumin/Globulin [Mass ratio] 0.5 {ratio} Low 1.1-2.5 [facility] ([place]) Comment on above: Performed By: #### C OCTAVIO MARTINEZ, DANK, MATTEO, BMP, ANEU #### [address] [address] ALP [Catalytic activity/Vol] 150 U/L High 40-135 [facility] ([place]) Comment on above: Performed By: #### C BC, ADIFF, GFR, MDW, BMP, ANEU #### [address] [address] ALT [Catalytic activity/Vol] 20 U/L Normal 16-63 [facility] ([place]) Comment on above: Performed By: #### C BC, ADIFF, GFR, MDW, BMP, ANEU #### [address] [address] AST [Catalytic activity/Vol] 53 U/L High 10-40 [facility] ([place]) Comment on above: Performed By: #### C BC, ADIFF, GFR, MDW, BMP, ANEU #### [address] [address] Bili Total 0.8 mg/dL Normal 0.2-1.0 [facility] ([place]) Comment on above: Result Comment: Use of this assay is not recommended for patients undergoing treatment with eltrombopag due to the potential for falsely elevated results. Performed By: #### C BC, ADIFF, GFR, MDW, BMP, ANEU #### [address] [address] BUN/Creatinine Ratio 19 ratio Normal 7-27 [facility] ([place]) Comment on above: Performed By: #### C BC, ADIFF, GFR, MDW, BMP, ANEU #### [address] [address] Calcium [Mass/Vol] 9.1 mg/dL Normal 8.4-10.2 [facility] ([place]) Comment on above: Performed By: #### C BC, ADIFF, GFR, MDW, BMP, ANEU #### [address] [address] Chloride [Moles/Vol] 101 mmol/L Normal 98-107 [facility] ([place]) Comment on above: Performed By: #### C BC, ADIFF, GFR, MDW, BMP, ANEU #### [address] [address] CO2 [Moles/Vol] 26 mmol/L Normal 23-31 [facility] ([place]) Comment on above: Performed By: #### C BC, ADIFF, GFR, MDW, BMP, ANEU #### [address] [address] Creatinine [Mass/Vol] 1.63 mg/dL High 0.70-1.30 [facility] ([place]) Comment on above: Performed By: #### C BC, ADIFF, GFR, MDW, BMP, ANEU #### [address] [address] Electrolyte Balance 10.0 mEq/L Normal 4.0-15.0 [facility] ([place]) Comment on above: Performed By: #### C BC, ADIFF, GFR, MDW, BMP, ANEU #### [address] [address] Globulin 4.6 G/dL Normal [facility] ([place]) Comment on above: Performed By: #### C BC, ADIFF, GFR, MDW, BMP, ANEU #### [place] [address] Glucose [Mass/Vol] 201 mg/dL High 83-110 [facility] ([place]) Comment on above: Performed By: #### C BC, ADIFF, GFR, MDW, BMP, ANEU #### [address] [address] Potassium [Moles/Vol] 5.0 mmol/L Normal 3.5-5.1 [facility] ([place]) Comment on above: Performed By: #### C BC, ADIFF, GFR, MDW, BMP, ANEU #### [address] [address] Sodium [Moles/Vol] 137 mmol/L Normal 136-145 [facility] ([place]) Comment on above: Performed By: #### C BC, ADIFF, GFR, MDW, BMP, ANEU #### [address] [address] Total Protein 7.0 G/dL Normal 6.4-8.2 [facility] ([place]) Comment on above: Performed By: #### C BC, ADIFF, GFR, MATTEO, BETH, ANEU #### [address] [address] Urea nitrogen [Mass/Vol] 31 mg/dL High 7-18 [facility] ([place]) Comment on above: Performed By: #### C MICHELLE, OCTAVIO, DANK, MATTEO, BMP, ANEU #### [address] [address] CRPon 01-23-2024 C-Reactive Protein 18.0 mg/dL High 0.0-0.3 [facility] ([place]) Comment on above: Performed By: #### C MICHELLE, OCTAVIO, DANK, MATTEO, BMP, ANEU #### [address] [address] LABORATORYOrdered By: SYSTEM SYSTEM on 01-23-2024 Albumin BCP dye [Mass/Vol] 2.4 G/dL Low 3.4 - 4.8 G/dL AO ADM SS Albumin/Globulin [Mass ratio] 0.5 {ratio} Low 1.1 - 2.5 ratio AO ADM SS ALP [Catalytic activity/Vol] 150 U/L High 40 - 135 U/L AO ADM SS ALT With P-5'-P [Catalytic activity/Vol] 20 U/L Normal 16 - 63 U/L AO ADM SS AST With P-5'-P [Catalytic activity/Vol] 53 U/L High 10 - 40 U/L AO ADM SS Basophil, Absolute 0.0 103/mcL Normal 0.0 - 0.2 10^3/mcL AO Workflow SS Basophils/100 WBC (Bld) 0.3 % Normal 0.0 - 2.5 % AO Workflow SS Bilirubin [Mass/Vol] 0.8 mg/dL Normal 0.2 - 1 .0 mg/dL AO ADM SS Comment on above: Interpretive Data: U se of this assay is not recommended for patients undergoing treatment with eltrombopag due to the potential for falsely elevated results. Calcium [Mass/Vol] 9.1 mg/dL Normal 8.4 - 10. 2 mg/dL AO ADM SS Chloride [Moles/Vol] 101 mmol/L Normal 98 - 10 7 mmol/L AO ADM SS CK [Catalytic activity/Vol] 52 U/L Normal 39 - 308 U/L AO ADM SS CO2 [Moles/Vol] 26 mmol/L Normal 23 - 31 mmol/L AO ADM SS Cobalamin (Vitamin B12) [Mass/Vol] 1343 pg/mL High 211 - 911 pg/mL AH ADM SS Creatinine [Mass/Vol] 1.63 mg/dL High 0.70 - 1.30 mg/dL AO ADM SS CRP [Mass/Vol] 18.0 mg/dL High 0.0 - 0.3 mg/dL AO ADM SS Electrolyte Balance 10.0 mEq/L Normal 4.0 - 15 .0 mEq/L AO ADM SS Eosinophil, Absolute 0.1 103/mcL Normal 0.0 - 0 .4 10^3/mcL AO Workflow SS Eosinophils/100 WBC (Bld) 0.5 % Normal 0.0 - 7.0 % AO Workflow SS Erythrocyte distribution width (RBC) [Ratio] 14.8 % High 11.5 - 14.5 % AO Workflow SS GFR/1.73 sq M.predicted among blacks MDRD (S/P/Bld) [Vol rate/Area] 50 ml/min/1.73sqm Invalid Interpretation Code AO Chemistry S Comment on above: Interpretive Data: GFR Population mean for , Non- Americans Ages 20-29 = 116 mL/min/1.73 sq.m. Ages 30-39 = 107 mL/min/1.73 sq.m. Ages 40-49 = 99 mL/min/1.73 sq.m. Ages 50-59 = 93 mL/min/1.73 sq.m. Ages 60-69 = 85 mL/min/1.73 sq.m. Ages 70+ = 75 mL/min/1.73 sq.m. Chronic Kidney Disease: Less than 60 mL/min/1.73 square meters End Stage Renal Disease: Less than 15 mL/min/1.73 square meters GFR/1.73 sq M.predicted among non-blacks MDRD (S/P/Bld) [Vol rate/Area] 41 ml/min/1.73sqm Invalid Interpretation Code AO Chemistry S Comment on above: Interpretive Data: GFR Population mean for , Non- Americans Ages 20-29 = 116 mL/min/1.73 sq.m. Ages 30-39 = 107 mL/min/1.73 sq.m. Ages 40-49 = 99 mL/min/1.73 sq.m. Ages 50-59 = 93 mL/min/1.73 sq.m. Ages 60-69 = 85 mL/min/1.73 sq.m. Ages 70+ = 75 mL/min/1.73 sq.m. Chronic Kidney Disease: Less than 60 mL/min/1.73 square meters End Stage Renal Disease: Less than 15 mL/min/1.73 square meters Globulin 4.6 G/dL Invalid Interpretation Code AO ADM SS Glucose [Mass/Vol] 201 mg/dL High 83 - 110 mg/dL AO ADM SS Hematocrit (Bld) [Volume fraction] 38.7 % Low 42.0 - 52.0 % AO Workflow SS Hemoglobin (Bld) [Mass/Vol] 13.0 G/dL Low 14.0 - 18.0 G/dL AO Workflow SS Lymphocyte, Absolute 0.7 103/mcL Low 0.8 - 3 .9 10^3/mcL AO Workflow SS Lymphocytes/100 WBC (Bld) 4.7 % Low 10.0 - 50.0 % AO Workflow SS Magnesium [Mass/Vol] 2.1 mg/dL Normal 1.8 - 2 .4 mg/dL AO ADM SS MCH (RBC) [Entitic mass] 30.2 pg Normal 27.0 - 31.2 pg AO Workflow SS MCHC 33.5 G/dL Normal 31.8 - 35.4 G/dL AO Workflow SS MCV (RBC) [Entitic vol] 90.4 fL Normal 80.0 - 94.0 fL AO Workflow SS Monocyte, Absolute 1.5 103/mcL High 0.2 - 1.0 10^3/mcL AO Workflow SS Monocytes/100 WBC (Bld) 10.8 % Normal 1.7 - 13.0 % AO Workflow SS Neutrophil, Absolute 11.7 103/mcL High 2.9 - 6 .2 10^3/mcL AO Workflow SS Neutrophils/100 WBC (Bld) 83.7 % High 37.0 - 80.0 % AO Workflow SS Platelet mean volume (Bld) [Entitic vol] 8.0 fL Normal 7.4 - 10.4 fL AO Workflow SS Platelets (Bld) [#/Vol] 516 103/mcL High 130 - 400 10^3/mcL AO Workflow SS Potassium [Moles/Vol] 5.0 mmol/L Normal 3.5 - 5.1 mmol/L AO ADM SS Protein [Mass/Vol] 7.0 G/dL Normal 6.4 - 8.2 G/dL AO ADM SS RBC (Bld) [#/Vol] 4.29 106/mcL Normal 4.04 - 6.1 3 10^6/mcL AO Workflow SS Sodium [Moles/Vol] 137 mmol/L Normal 136 - 145 mmol/L AO ADM SS Urea nitrogen [Mass/Vol] 31 mg/dL High 7 - 18 mg/dL AO ADM SS Urea nitrogen/Creatinine [Mass ratio] 19 ratio Normal 7 - 27 ratio AO ADM SS WBC (Bld) [#/Vol] 14.0 103/mcL High 4.6 - 10.8 10^3/mcL AO Workflow SS MGon 01-23-2024 Magnesium [Mass/Vol] 2.1 mg/dL Normal 1.8-2.4 [facility] ([place]) Comment on above: Performed By: #### C OCTAVIO MARTINEZ, GFR, MATTEO, BMP, ANEU #### [address] [address] .Auto Diffon 01-10-2024 Basophil, Absolute 0.0 10 3/mcL Normal 0.0-0.2 [facility] ([place]) Comment on above: Performed By: #### C OCTAVIO MARTINEZ, GFR, MDW, BMP, ANEU #### [address] [address] Basophils/100 WBC (Bld) 0.4 % Normal 0.0-2.5 [facility] ([place]) Comment on above: Performed By: #### C OCTAVIO MARTINEZ, GFR, MDW, BMP, ANEU #### [address] [address] Eosinophil, Absolute 0.0 10 3/mcL Normal 0.0-0.4 [facility] ([place]) Comment on above: Performed By: #### C OCTAVIO MARTINEZ, GFR, MDW, BMP, ANEU #### [address] [address] Eosinophils/100 WBC (Bld) 0.3 % Normal 0.0-7.0 [facility] ([place]) Comment on above: Performed By: #### C OCTAVIO MARTINEZ, GFR, MDW, BMP, ANEU #### [address] [address] Lymphocyte, Absolute 0.2 10 3/mcL Low 0.8-3.9 [facility] ([place]) Comment on above: Performed By: #### C BC, ADIFF, GFR, MDW, BMP, ANEU #### [address] [address] Lymphocytes/100 WBC (Bld) 2.1 % Low 10.0-50.0 [facility] ([place]) Comment on above: Performed By: #### C BC, ADIFF, GFR, MDW, BMP, ANEU #### [address] [address] Monocyte, Absolute 0.3 10 3/mcL Normal 0.2-1.0 [facility] ([place]) Comment on above: Performed By: #### C BC, ADIFF, GFR, MDW, BMP, ANEU #### [address] [address] Monocytes/100 WBC (Bld) 3.2 % Normal 1.7-13.0 [facility] ([place]) Comment on above: Performed By: #### C BC, ADIFF, GFR, MDW, BMP, ANEU #### [address] [address] Neutrophils/100 WBC (Bld) 94.0 % High 37.0-80.0 [facility] ([place]) Comment on above: Performed By: #### C BC, ADIFF, GFR, MDW, BMP, ANEU #### [address] [address] .GFRon 01-10-2024 GFR 58 ml/min/1.73sqm Normal [facility] ([place]) Comment on above: Result Comment: GFR Population mean for , Non- Americans Ages 20-29 = 116 mL/min/1.73 sq.m. Ages 30-39 = 107 mL/min/1.73 sq.m. Ages 40-49 = 99 mL/min/1.73 sq.m. Ages 50-59 = 93 mL/min/1.73 sq.m. Ages 60-69 = 85 mL/min/1.73 sq.m. Ages 70+ = 75 mL/min/1.73 sq.m. Chronic Kidney Disease: Less than 60 mL/min/1.73 square meters End Stage Renal Disease: Less than 15 mL/min/1.73 square meters Performed By: #### C BC, ADIFF, GFR, MDW, BMP, ANEU #### [address] [address] GFR Non- 48 ml/min/1.73sqm Normal [facility] ([place]) Comment on above: Result Comment: GFR Population mean for , Non- Americans Ages 20-29 = 116 mL/min/1.73 sq.m. Ages 30-39 = 107 mL/min/1.73 sq.m. Ages 40-49 = 99 mL/min/1.73 sq.m. Ages 50-59 = 93 mL/min/1.73 sq.m. Ages 60-69 = 85 mL/min/1.73 sq.m. Ages 70+ = 75 mL/min/1.73 sq.m. Chronic Kidney Disease: Less than 60 mL/min/1.73 square meters End Stage Renal Disease: Less than 15 mL/min/1.73 square meters Performed By: #### C BC, ADIFF, GFR, MDW, BMP, ANEU #### [address] [address] .MDWon 01-10-2024 Monocyte Distribution Width 26.35 High 0.00-20.00 [facility] ([place]) Comment on above: Result Comment: For adults in ED, MDW>20.0 may be associated with a higher risk of sepsis during the first 12hrs of hospital admission Performed By: #### C BC, ADIFF, GFR, MDW, BMP, ANEU #### [address] [address] .NEUABSon 01-10-2024 Neutrophil, Absolute 9.4 10 3/mcL High 2.9-6.2 [facility] ([place]) Comment on above: Performed By: #### C BC, ADIFF, GFR, MDW, BMP, ANEU #### [address] [address] .Urinalysis Microscopic (AO) on 01-10-2024 UA Bacteria 1+ /hpf Abnormal [facility] ([place]) Comment on above: Performed By: #### C BC, OCTAVIO, GFR, MDW, BMP, ANEU #### [place] [address] UA RBC LOADED Abnormal None Seen [facility] ([place]) Comment on above: Performed By: #### C BC, ADDEVIKA, GFR, MDW, BMP, ANEU #### [place] [address] UA Squam Epithelial 0-5 Abnormal None Seen [facility] ([place]) Comment on above: Performed By: #### C BC, OCTAVIO, GFR, MDW, BMP, ANEU #### [place] [address] UA WBC 0-5 Abnormal None Seen [facility] ([place]) Comment on above: Performed By: #### C BC, OCTAVIO, GFR, MDW, BMP, ANEU #### [place] [address] CBCon 01-10-2024 Erythrocyte distribution width (RBC) [Ratio] 13.8 % Normal 11.5-14.5 [facility] ([place]) Comment on above: Performed By: #### C BC, OCTAVIO, GFR, MDW, BMP, ANEU #### [place] [address] Hematocrit (Bld) [Volume fraction] 40.5 % Low 42.0-52.0 [facility] ([place]) Comment on above: Performed By: #### C BC, ADDEVIKA, GFR, MDW, BMP, ANEU #### [place] [address] Hgb 14.0 G/dL Normal 14.0-18.0 [facility] ([place]) Comment on above: Performed By: #### C BC, ADDEVIKA, GFR, MDW, BMP, ANEU #### [place] [address] MCH (RBC) [Entitic mass] 31.4 pg High 27.0-31.2 [facility] ([place]) Comment on above: Performed By: #### C MICHELLE, OCTAVIO, DANK, W, BMP, ANEU #### [place] [address] MCHC 34.6 G/dL Normal 31.8-35.4 [facility] ([place]) Comment on above: Performed By: #### C MICHELLE, OCTAVIO, GFR, MDW, BMP, ANEU #### [place] [address] MCV (RBC) [Entitic vol] 90.5 fL Normal 80.0-94.0 [facility] ([place]) Comment on above: Performed By: #### C MICHELLE, OCTAVIO, GFR, MDW, BMP, ANEU #### [place] [address] Platelet 140 10 3/mcL Normal 130-400 [facility] ([place]) Comment on above: Performed By: #### C MIHCELLE, OCTAVIO, GFR, MDW, BMP, ANEU #### [place] [address] Platelet mean volume (Bld) [Entitic vol] 8.0 fL Normal 7.4-10.4 [facility] ([place]) Comment on above: Performed By: #### C MICHELLE, OCTAVIO, GFR, MDW, BMP, ANEU #### [place] [address] RBC 4.47 10 6/mcL Normal 4.04-6.13 [facility] ([place]) Comment on above: Performed By: #### C MICHELLE, OCTAVIO, GFR, MDW, BMP, ANEU #### [place] [address] WBC 10.0 10 3/mcL Normal 4.6-10.8 [facility] ([place]) Comment on above: Performed By: #### C MICHELLE, OCTAVIO, GFR, MDW, BMP, ANEU #### [place] [address] CMPon 01-10-2024 ALT [Catalytic activity/Vol] 11 U/L Low 16-63 [facility] ([place]) Comment on above: Performed By: #### C BC, ADIFF, GFR, MDW, BMP, ANEU #### [address] [address] Albumin Level 3.2 G/dL Low 3.4-4.8 [facility] ([place]) Comment on above: Performed By: #### C BC, ADIFF, GFR, MDW, BMP, ANEU #### [address] [address] Albumin/Globulin [Mass ratio] 0.9 {ratio} Low 1.1-2.5 [facility] ([place]) Comment on above: Performed By: #### C BC, ADIFF, GFR, MDW, BMP, ANEU #### [address] [address] ALP [Catalytic activity/Vol] 105 U/L Normal 40-135 [facility] ([place]) Comment on above: Performed By: #### C BC, ADIFF, GFR, MDW, BMP, ANEU #### [place] [id number] AST [Catalytic activity/Vol] 22 U/L Normal 10-40 [facility] ([place]) Comment on above: Performed By: #### C BC, ADIFF, GFR, MDW, BMP, ANEU #### [address] [address] Bili Total 1.6 mg/dL High 0.2-1.0 [facility] ([place]) Comment on above: Result Comment: Use of this assay is not recommended for patients undergoing treatment with eltrombopag due to the potential for falsely elevated results. Performed By: #### C BC, ADIFF, GFR, MDW, BMP, ANEU #### [address] [address] BUN/Creatinine Ratio 16 ratio Normal 7-27 [facility] ([place]) Comment on above: Performed By: #### C BC, ADIFF, GFR, MDW, BMP, ANEU #### [place] [id number] Calcium [Mass/Vol] 8.8 mg/dL Normal 8.4-10.2 [facility] ([place]) Comment on above: Performed By: #### C BC, ADDEVIKA, GFR, MDW, BMP, ANEU #### [address] [address] Chloride [Moles/Vol] 103 mmol/L Normal 98-107 [facility] ([place]) Comment on above: Performed By: #### C BC, ADIFF, GFR, MDW, BMP, ANEU #### [address] [address] CO2 [Moles/Vol] 24 mmol/L Normal 23-31 [facility] ([place]) Comment on above: Performed By: #### C BC, ADIFF, GFR, MDW, BMP, ANEU #### [address] [address] Creatinine [Mass/Vol] 1.44 mg/dL High 0.70-1.30 [facility] ([place]) Comment on above: Performed By: #### C BC, ADIFF, GFR, MDW, BMP, ANEU #### [address] [address] Electrolyte Balance 12.0 mEq/L Normal 4.0-15.0 [facility] ([place]) Comment on above: Performed By: #### C BC, ADIFF, GFR, MDW, BMP, ANEU #### [address] [address] Globulin 3.6 G/dL Normal [facility] ([place]) Comment on above: Performed By: #### C BC, ADIFF, GFR, MDW, BMP, ANEU #### [address] [address] Glucose [Mass/Vol] 154 mg/dL High 83-110 [facility] ([place]) Comment on above: Performed By: #### C BC, ADIFF, GFR, MDW, BMP, ANEU #### [address] [address] Potassium [Moles/Vol] 3.9 mmol/L Normal 3.5-5.1 [facility] ([place]) Comment on above: Performed By: #### C BC, ADIFF, GFR, MDW, BMP, ANEU #### [address] [address] Sodium [Moles/Vol] 139 mmol/L Normal 136-145 [facility] ([place]) Comment on above: Performed By: #### C BC, ADIFF, GFR, MDW, BMP, ANEU #### [address] [address] Total Protein 6.8 G/dL Normal 6.4-8.2 [facility] ([place]) Comment on above: Performed By: #### C BC, ADIFF, GFR, MDW, BMP, ANEU #### [address] [address] Urea nitrogen [Mass/Vol] 23 mg/dL High 7-18 [facility] ([place]) Comment on above: Performed By: #### C BC, ADIFF, GFR, MDW, BMP, ANEU #### [address] [address] [address] ABD/PELVIS W/ IV CONTRAST ONLYon 01-10-2024 CT ABD/PELVIS W/ IV CONTRAST ONLY ORIGINAL EXAMINATION: CT OF THE ABDOMEN AND PELVIS WITH CONTRAST01/10/2024 8:46 pm TECHNIQUE: CT of the abdomen and pelvis was performed with the administration of intravenous contrast. Multiplanar reformatted images are provided for review. Automated exposure control, iterative reconstruction, and/or weight based adjustment of the mA/kV was utilized to reduce the radiation dose to as low as reasonably achievable. COMPARISON: 08/03/2016 HISTORY: ORDERING SYSTEM PROVIDED HISTORY: Reason for Exam: pain FINDINGS: Prior bilateral hip surgeries. There is no acute fracture. Provided images of the lower thorax demonstrate mild bilateral posterior pleural thickening. Mild diffuse hepatic hypoattenuation without focal lesion the visualized, which could reflect underlying hepatic steatosis or contrast bolus timing. Cholelithiasis. Pancreas, spleen, and adrenal glands are unremarkable. There are mild areas of renal cortical scarring or persistent lobulation. There is a right renal cyst which measures 2.4 cm. No hydronephrosis. Allowing for suboptimal evaluation of the distal ureters due to metallic artifact from hip hardware, grossly unremarkable ureters. Urinary bladder appears to demonstrate mild wall thickening, favored to be related to partially decompressed state although correlate clinically. Prostate is poorly visualized due to artifact. Nonspecific mild distal esophageal wall thickening. The aorta is atherosclerotic but nonaneurysmal. Mild to moderate colonic diverticulosis without evidence of diverticulitis. Normal appendix. No bowel obstruction. No free air, free fluid, or adenopathy identified. IMPRESSION: No definite acute findings. Additional findings as above I have personally reviewed the images of this examination and agree with the resident's findings and interpretation. Interpreted by: Zack Person Preliminary Report By: Seven Aguilar Electronically signed By Zack Person Dictated Date: 01/10/2024 8:57:42 PM Prelim Date: 01/10/2024 9:05:56 PM Sign Date: 01/10/2024 9:22:37 PM Ordering Provider: FIDEL Davidson [facility] ([place]) LABORATORYOrdered By: Moises Barney on 01-10-2024 Appearance (U) Clear (01/10/24 9:37 PM) Normal Clear AO Auto Urine SS Bacteria LM.HPF (Urine sed) [#/Area] 1 /[HPF] Invalid Interpretation Code AO Auto Urine SS Bilirubin Ql (U) Negative (01/10/24 9:37 PM) Normal Negative AO Auto Urine SS Color (U) Yellow (01/10/24 9:37 PM) Normal AO Auto Urine SS Glucose Test strip (U) [Mass/Vol] Negative Normal Negative AO Auto Urine SS Hemoglobin Auto test strip (U) [Mass/Vol] Small *ABN* (01/10/24 9:37 PM) Invalid Interpretation Code Negative AO Auto Urine SS Ketones Ql (U) 40 mg/dL Invalid Interpretation Code Negative AO Auto Urine SS UA Leuk Est Trace *ABN* (01/10/24 9:37 PM) Invalid Interpretation Code Negative AO Auto Urine SS UA Nitrite Negative (01/10/24 9:37 PM) Normal Negative AO Auto Urine SS UA pH 6.0 (01/10/24 9:37 PM) Normal 5.0 - 8.0 AO Auto Urine SS UA Protein 100 mg/dL Invalid Interpretation Code Negative AO Auto Urine SS UA RBC LOADED /HPF Invalid Interpretation Code None Seen AO Auto Urine SS UA Spec Grav 1.015 (01/10/24 9:37 PM) Normal 1.015-1.025 AO Auto Urine SS UA Specimen Type Clean Catch (01/10/24 9:37 PM) Normal AO Auto Urine SS UA Squam Epithelial 0-5 /HPF Invalid Interpretation Code None Seen AO Auto Urine SS UA Urobilinogen 2.0 E.U./dL Invalid Interpretation Code 0.2-1.0 AO Auto Urine SS WBC LM.HPF (Urine sed) [#/Area] 0-5 /HPF Invalid Interpretation Code None Seen AO Auto Urine SS LABORATORYOrdered By: SYSTEM SYSTEM on 01-10-2024 Albumin BCP dye [Mass/Vol] 3.2 G/dL Low 3.4 - 4.8 G/dL AO ADM SS Albumin/Globulin [Mass ratio] 0.9 {ratio} Low 1.1 - 2.5 ratio AO ADM SS ALP [Catalytic activity/Vol] 105 U/L Normal 40 - 135 U/L AO ADM SS ALT With P-5'-P [Catalytic activity/Vol] 11 U/L Low 16 - 63 U/L AO ADM SS AST With P-5'-P [Catalytic activity/Vol] 22 U/L Normal 10 - 40 U/L AO ADM SS Basophil, Absolute 0.0 103/mcL Normal 0.0 - 0.2 10^3/mcL AO Workflow SS Basophils/100 WBC (Bld) 0.4 % Normal 0.0 - 2.5 % AO Workflow SS Bilirubin [Mass/Vol] 1.6 mg/dL High 0.2 - 1 .0 mg/dL AO ADM SS Comment on above: Interpretive Data: U se of this assay is not recommended for patients undergoing treatment with eltrombopag due to the potential for falsely elevated results. Calcium [Mass/Vol] 8.8 mg/dL Normal 8.4 - 10. 2 mg/dL AO ADM SS Chloride [Moles/Vol] 103 mmol/L Normal 98 - 10 7 mmol/L AO ADM SS CO2 [Moles/Vol] 24 mmol/L Normal 23 - 31 mmol/L AO ADM SS Creatinine [Mass/Vol] 1.44 mg/dL High 0.70 - 1.30 mg/dL AO ADM SS Electrolyte Balance 12.0 mEq/L Normal 4.0 - 15 .0 mEq/L AO ADM SS Eosinophil, Absolute 0.0 103/mcL Normal 0.0 - 0 .4 10^3/mcL AO Workflow SS Eosinophils/100 WBC (Bld) 0.3 % Normal 0.0 - 7.0 % AO Workflow SS Erythrocyte distribution width (RBC) [Ratio] 13.8 % Normal 11.5 - 14.5 % AO Workflow SS GFR/1.73 sq M.predicted among blacks MDRD (S/P/Bld) [Vol rate/Area] 58 ml/min/1.73sqm Invalid Interpretation Code AO Chemistry S Comment on above: Interpretive Data: GFR Population mean for , Non- Americans Ages 20-29 = 116 mL/min/1.73 sq.m. Ages 30-39 = 107 mL/min/1.73 sq.m. Ages 40-49 = 99 mL/min/1.73 sq.m. Ages 50-59 = 93 mL/min/1.73 sq.m. Ages 60-69 = 85 mL/min/1.73 sq.m. Ages 70+ = 75 mL/min/1.73 sq.m. Chronic Kidney Disease: Less than 60 mL/min/1.73 square meters End Stage Renal Disease: Less than 15 mL/min/1.73 square meters GFR/1.73 sq M.predicted among non-blacks MDRD (S/P/Bld) [Vol rate/Area] 48 ml/min/1.73sqm Invalid Interpretation Code AO Chemistry S Comment on above: Interpretive Data: GFR Population mean for , Non- Americans Ages 20-29 = 116 mL/min/1.73 sq.m. Ages 30-39 = 107 mL/min/1.73 sq.m. Ages 40-49 = 99 mL/min/1.73 sq.m. Ages 50-59 = 93 mL/min/1.73 sq.m. Ages 60-69 = 85 mL/min/1.73 sq.m. Ages 70+ = 75 mL/min/1.73 sq.m. Chronic Kidney Disease: Less than 60 mL/min/1.73 square meters End Stage Renal Disease: Less than 15 mL/min/1.73 square meters Globulin 3.6 G/dL Invalid Interpretation Code AO ADM SS Glucose [Mass/Vol] 154 mg/dL High 83 - 110 mg/dL AO ADM SS Hematocrit (Bld) [Volume fraction] 40.5 % Low 42.0 - 52.0 % AO Workflow SS Hemoglobin (Bld) [Mass/Vol] 14.0 G/dL Normal 14.0 - 18.0 G/dL AO Workflow SS Lipase [Catalytic activity/Vol] 23 U/L Normal 16 - 77 U/L AO ADM SS Lymphocyte, Absolute 0.2 103/mcL Low 0.8 - 3 .9 10^3/mcL AO Workflow SS Lymphocytes/100 WBC (Bld) 2.1 % Low 10.0 - 50.0 % AO Workflow SS MCH (RBC) [Entitic mass] 31.4 pg High 27.0 - 31.2 pg AO Workflow SS MCHC 34.6 G/dL Normal 31.8 - 35.4 G/dL AO Workflow SS MCV (RBC) [Entitic vol] 90.5 fL Normal 80.0 - 94.0 fL AO Workflow SS Monocyte distribution width Auto (Bld) [Entitic vol] 26.35 1 High 0.00 - 20.00 AO Workflow SS Comment on above: Result Comment: For adults in ED, MDW>20.0 may be associated with a higher risk of sepsis during the first 12hrs of hospital admission Monocyte, Absolute 0.3 103/mcL Normal 0.2 - 1.0 10^3/mcL AO Workflow SS Monocytes/100 WBC (Bld) 3.2 % Normal 1.7 - 13.0 % AO Workflow SS Neutrophil, Absolute 9.4 103/mcL High 2.9 - 6 .2 10^3/mcL AO Workflow SS Neutrophils/100 WBC (Bld) 94.0 % High 37.0 - 80.0 % AO Workflow SS Platelet mean volume (Bld) [Entitic vol] 8.0 fL Normal 7.4 - 10.4 fL AO Workflow SS Platelets (Bld) [#/Vol] 140 103/mcL Normal 130 - 400 10^3/mcL AO Workflow SS Potassium [Moles/Vol] 3.9 mmol/L Normal 3.5 - 5.1 mmol/L AO ADM SS Protein [Mass/Vol] 6.8 G/dL Normal 6.4 - 8.2 G/dL AO ADM SS RBC (Bld) [#/Vol] 4.47 106/mcL Normal 4.04 - 6.1 3 10^6/mcL AO Workflow SS Sodium [Moles/Vol] 139 mmol/L Normal 136 - 145 mmol/L AO ADM SS Urea nitrogen [Mass/Vol] 23 mg/dL High 7 - 18 mg/dL AO ADM SS Urea nitrogen/Creatinine [Mass ratio] 16 ratio Normal 7 - 27 ratio AO ADM SS WBC (Bld) [#/Vol] 10.0 103/mcL Normal 4.6 - 10.8 10^3/mcL AO Workflow SS LIPon 01-10-2024 Lipase Level 23 U/L Normal 16-77 [facility] ([place]) Comment on above: Performed By: #### C MICHELLE, OCTAVIO, GFR, MATTEO, BMP, ANEU #### [address] [address] UAon 01-10-2024 Color (U) Yellow Normal [facility] ([place]) Comment on above: Performed By: #### C OCTAVIO MARTINEZ, GFR, MATTEO, BMP, ANEU #### [place] [address] Glucose (U) [Mass/Vol] Negative Normal Negative [facility] ([place]) Comment on above: Performed By: #### C MICHELLE, OCTAVIO, GFR, MATTEO, BMP, ANEU #### [address] [address] Ketones Ql (U) 40 mg/dL Abnormal Negative [facility] ([place]) Comment on above: Performed By: #### C OCTAVIO MARTINEZ, GFR, MATTEO, BMP, ANEU #### [address] [address] UA Appear Clear Normal Clear [facility] ([place]) Comment on above: Performed By: #### C MICHELLE, OCTAVIO, GFR, MATTEO, BMP, ANEU #### [address] [address] UA Blood Small Abnormal Negative [facility] ([place]) Comment on above: Performed By: #### C OCTAVIO MARTINEZ, GFR, MATTEO, BMP, ANEU #### [address] [address] UA Leuk Est Trace Abnormal Negative [facility] ([place]) Comment on above: Performed By: #### C MICHELLE, OCTAVIO, GFR, MATTEO, BMP, ANEU #### [address] [address] UA Nitrite Negative Normal Negative [facility] ([place]) Comment on above: Performed By: #### C BC, ADIFF, GFR, MDW, BMP, ANEU #### [place] [address] UA pH 6.0 Normal 5.0 - 8.0 [facility] ([place]) Comment on above: Performed By: #### C BC, ADIFF, GFR, MDW, BMP, ANEU #### [place] [address] UA Protein 100 mg/dL Abnormal Negative [facility] ([place]) Comment on above: Performed By: #### C BC, ADIFF, GFR, MDW, BMP, ANEU #### [place] [address] UA Spec Grav 1.015 Normal 1.015-1.025 [facility] ([place]) Comment on above: Performed By: #### C BC, ADIFF, GFR, MDW, BMP, ANEU #### [place] [address] UA Specimen Type Clean Catch Normal [facility] ([place]) Comment on above: Performed By: #### C BC, ADIFF, GFR, MDW, BMP, ANEU #### [place] [address] UA Urobilinogen 2.0 E.U./dL Abnormal 0.2-1.0 [facility] ([place]) Comment on above: Performed By: #### C BC, ADIFF, GFR, MDW, BMP, ANEU #### [place] [address] Urobilinogen (U) [Mass/Vol] Negative Normal Negative [facility] ([place]) Comment on above: Performed By: #### C BC, ADIFF, GFR, MDW, BMP, ANEU #### [place] [address] .Auto Diffon 12-20-2023 Basophil, Absolute 0.0 10 3/mcL Normal 0.0-0.2 [facility] ([place]) Comment on above: Performed By: #### C BC, ADIFF, GFR, MDW, BMP, ANEU #### [address] [address] Basophils/100 WBC (Bld) 0.3 % Normal 0.0-2.5 [facility] ([place]) Comment on above: Performed By: #### C BC, ADIFF, GFR, MDW, BMP, ANEU #### [address] [address] Eosinophil, Absolute 0.0 10 3/mcL Normal 0.0-0.4 [facility] ([place]) Comment on above: Performed By: #### C BC, ADIFF, GFR, MDW, BMP, ANEU #### [address] [address] Eosinophils/100 WBC (Bld) 0.1 % Normal 0.0-7.0 [facility] ([place]) Comment on above: Performed By: #### C BC, ADIFF, GFR, MDW, BMP, ANEU #### [address] [address] Lymphocyte, Absolute 0.7 10 3/mcL Low 0.8-3.9 [facility] ([place]) Comment on above: Performed By: #### C BC, ADIFF, GFR, MDW, BMP, ANEU #### [address] [address] Lymphocytes/100 WBC (Bld) 5.2 % Low 10.0-50.0 [facility] ([place]) Comment on above: Performed By: #### C BC, ADIFF, GFR, MDW, BMP, ANEU #### [address] [address] Monocyte, Absolute 1.5 10 3/mcL High 0.2-1.0 [facility] ([place]) Comment on above: Performed By: #### C BC, ADIFF, GFR, MDW, BMP, ANEU #### [address] [address] Monocytes/100 WBC (Bld) 11.5 % Normal 1.7-13.0 [facility] ([place]) Comment on above: Performed By: #### C BC, ADIFF, GFR, MDW, BMP, ANEU #### [address] [address] Neutrophils/100 WBC (Bld) 82.9 % High 37.0-80.0 [facility] ([place]) Comment on above: Performed By: #### C OCTAVIO MARTINEZ, DANK, BETH FELIPE, ANEU #### [address] [address] .GFRon 12-20-2023 GFR 42 ml/min/1.73sqm Normal [facility] ([place]) Comment on above: Result Comment: GFR Population mean for , Non- Americans Ages 20-29 = 116 mL/min/1.73 sq.m. Ages 30-39 = 107 mL/min/1.73 sq.m. Ages 40-49 = 99 mL/min/1.73 sq.m. Ages 50-59 = 93 mL/min/1.73 sq.m. Ages 60-69 = 85 mL/min/1.73 sq.m. Ages 70+ = 75 mL/min/1.73 sq.m. Chronic Kidney Disease: Less than 60 mL/min/1.73 square meters End Stage Renal Disease: Less than 15 mL/min/1.73 square meters Performed By: #### C OCTAVIO MARTINEZ, GFR, MATTEO, BETH, ANEU #### [address] [address] GFR Non- 35 ml/min/1.73sqm Normal [facility] ([place]) Comment on above: Result Comment: GFR Population mean for , Non- Americans Ages 20-29 = 116 mL/min/1.73 sq.m. Ages 30-39 = 107 mL/min/1.73 sq.m. Ages 40-49 = 99 mL/min/1.73 sq.m. Ages 50-59 = 93 mL/min/1.73 sq.m. Ages 60-69 = 85 mL/min/1.73 sq.m. Ages 70+ = 75 mL/min/1.73 sq.m. Chronic Kidney Disease: Less than 60 mL/min/1.73 square meters End Stage Renal Disease: Less than 15 mL/min/1.73 square meters Performed By: #### C OCTAVIO MARTINEZ, GFR, MDW, BMP, ANEU #### [address] [address] .NEUABSon 12-20-2023 Neutrophil, Absolute 10.5 10 3/mcL High 2.9-6.2 A [facility] ([place]) Comment on above: Performed By: #### C BC, ADIFF, GFR, MDW, BMP, ANEU #### [place] [id number] CBCon 12-20-2023 Erythrocyte distribution width (RBC) [Ratio] 13.8 % Normal 11.5-14.5 [facility] ([place]) Comment on above: Performed By: #### C BC, OCTAVIO, GFR, MDW, BMP, ANEU #### [place] [address] Hematocrit (Bld) [Volume fraction] 40.7 % Low 42.0-52.0 [facility] ([place]) Comment on above: Performed By: #### C BC, ADIFF, GFR, MDW, BMP, ANEU #### [place] [address] Hgb 14.1 G/dL Normal 14.0-18.0 [facility] ([place]) Comment on above: Performed By: #### C BC, ADIFF, GFR, MDW, BMP, ANEU #### [place] [address] MCH (RBC) [Entitic mass] 31.5 pg High 27.0-31.2 [facility] ([place]) Comment on above: Performed By: #### C BC, ADIFF, GFR, MDW, BMP, ANEU #### [place] [address] MCHC 34.7 G/dL Normal 31.8-35.4 [facility] ([place]) Comment on above: Performed By: #### C BC, ADIFF, GFR, MDW, BMP, ANEU #### [place] [address] MCV (RBC) [Entitic vol] 90.7 fL Normal 80.0-94.0 [facility] ([place]) Comment on above: Performed By: #### C BC, ADIFF, GFR, MDW, BMP, ANEU #### [place] [address] Platelet 185 10 3/mcL Normal 130-400 [facility] ([place]) Comment on above: Performed By: #### C BC, ADIFF, GFR, MDW, BMP, ANEU #### [place] [address] Platelet mean volume (Bld) [Entitic vol] 8.6 fL Normal 7.4-10.4 [facility] ([place]) Comment on above: Performed By: #### C BC, ADDEVIKA, GFR, MDW, BMP, ANEU #### [place] [address] RBC 4.49 10 6/mcL Normal 4.04-6.13 [facility] ([place]) Comment on above: Performed By: #### C BC, ADIFF, GFR, MDW, BMP, ANEU #### [place] [address] WBC 12.7 10 3/mcL High 4.6-10.8 [facility] ([place]) Comment on above: Performed By: #### C BC, ADIFF, GFR, MDW, BMP, ANEU #### [place] [address] CMPon 12-20-2023 Albumin Level 3.3 G/dL Low 3.4-4.8 [facility] ([place]) Comment on above: Performed By: #### C BC, ADIFF, GFR, MDW, BMP, ANEU #### [place] [address] Albumin/Globulin [Mass ratio] 0.9 {ratio} Low 1.1-2.5 [facility] ([place]) Comment on above: Performed By: #### C BC, ADIFF, GFR, MDW, BMP, ANEU #### [place] [address] ALP [Catalytic activity/Vol] 89 U/L Normal 40-135 [facility] ([place]) Comment on above: Performed By: #### C BC, ADIFF, GFR, MDW, BMP, ANEU #### [address] [address] ALT [Catalytic activity/Vol] 15 U/L Low 16-63 [facility] ([place]) Comment on above: Performed By: #### C BC, ADIFF, GFR, MDW, BMP, ANEU #### [address] [address] AST [Catalytic activity/Vol] 16 U/L Normal 10-40 [facility] ([place]) Comment on above: Performed By: #### C BC, ADIFF, GFR, MDW, BMP, ANEU #### [address] [address] Bili Total 1.6 mg/dL High 0.2-1.0 [facility] ([place]) Comment on above: Result Comment: Use of this assay is not recommended for patients undergoing treatment with eltrombopag due to the potential for falsely elevated results. Performed By: #### C BC, ADIFF, GFR, MDW, BMP, ANEU #### [address] [address] BUN/Creatinine Ratio 13 ratio Normal 7-27 [facility] ([place]) Comment on above: Performed By: #### C BC, ADIFF, GFR, MDW, BMP, ANEU #### [address] [address] Calcium [Mass/Vol] 8.7 mg/dL Normal 8.4-10.2 [facility] ([place]) Comment on above: Performed By: #### C BC, ADIFF, GFR, MDW, BMP, ANEU #### [address] [address] Chloride [Moles/Vol] 101 mmol/L Normal 98-107 [facility] ([place]) Comment on above: Performed By: #### C BC, ADIFF, GFR, MDW, BMP, ANEU #### [address] [address] CO2 [Moles/Vol] 25 mmol/L Normal 23-31 [facility] ([place]) Comment on above: Performed By: #### C BC, ADIFF, GFR, MDW, BMP, ANEU #### [address] [address] Creatinine [Mass/Vol] 1.89 mg/dL High 0.70-1.30 [facility] ([place]) Comment on above: Performed By: #### C BC, ADIFF, GFR, MDW, BMP, ANEU #### [address] [address] Electrolyte Balance 12.0 mEq/L Normal 4.0-15.0 [facility] ([place]) Comment on above: Performed By: #### C BC, ADIFF, GFR, MDW, BMP, ANEU #### [address] [address] Globulin 3.7 G/dL Normal [facility] ([place]) Comment on above: Performed By: #### C BC, ADIFF, GFR, MDW, BMP, ANEU #### [place] [id number] Glucose [Mass/Vol] 139 mg/dL High 83-110 [facility] ([place]) Comment on above: Performed By: #### C BC, ADIFF, GFR, MDW, BMP, ANEU #### [address] [address] Potassium [Moles/Vol] 4.2 mmol/L Normal 3.5-5.1 [facility] ([place]) Comment on above: Performed By: #### C BC, ADIFF, GFR, MDW, BMP, ANEU #### [address] [address] Sodium [Moles/Vol] 138 mmol/L Normal 136-145 [facility] ([place]) Comment on above: Performed By: #### C BC, ADIFF, GFR, MDW, BMP, ANEU #### [address] [address] Total Protein 7.0 G/dL Normal 6.4-8.2 [facility] ([place]) Comment on above: Performed By: #### C BC, ADIFF, GFR, MDW, BMP, ANEU #### [facility] [address] [place], [place] [address] Urea nitrogen [Mass/Vol] 24 mg/dL High 7-18 [facility] ([place]) Comment on above: Performed By: #### C MICHELLE, OCTAVIO, DANK, W, BMP, ANEU #### [address] [address] LABORATORYOrdered By: SYSTEM SYSTEM on 12-20-2023 Albumin BCP dye [Mass/Vol] 3.3 G/dL Low 3.4 - 4.8 G/dL AO ADM SS Albumin/Globulin [Mass ratio] 0.9 {ratio} Low 1.1 - 2.5 ratio AO ADM SS ALP [Catalytic activity/Vol] 89 U/L Normal 40 - 135 U/L AO ADM SS ALT With P-5'-P [Catalytic activity/Vol] 15 U/L Low 16 - 63 U/L AO ADM SS AST With P-5'-P [Catalytic activity/Vol] 16 U/L Normal 10 - 40 U/L AO ADM SS Basophil, Absolute 0.0 103/mcL Normal 0.0 - 0.2 10^3/mcL AO Workflow SS Basophils/100 WBC (Bld) 0.3 % Normal 0.0 - 2.5 % AO Workflow SS Bilirubin [Mass/Vol] 1.6 mg/dL High 0.2 - 1 .0 mg/dL AO ADM SS Comment on above: Interpretive Data: U se of this assay is not recommended for patients undergoing treatment with eltrombopag due to the potential for falsely elevated results. Calcium [Mass/Vol] 8.7 mg/dL Normal 8.4 - 10. 2 mg/dL AO ADM SS Chloride [Moles/Vol] 101 mmol/L Normal 98 - 10 7 mmol/L AO ADM SS CO2 [Moles/Vol] 25 mmol/L Normal 23 - 31 mmol/L AO ADM SS Creatinine [Mass/Vol] 1.89 mg/dL High 0.70 - 1.30 mg/dL AO ADM SS Electrolyte Balance 12.0 mEq/L Normal 4.0 - 15 .0 mEq/L AO ADM SS Eosinophil, Absolute 0.0 103/mcL Normal 0.0 - 0 .4 10^3/mcL AO Workflow SS Eosinophils/100 WBC (Bld) 0.1 % Normal 0.0 - 7.0 % AO Workflow SS Erythrocyte distribution width (RBC) [Ratio] 13.8 % Normal 11.5 - 14.5 % AO Workflow SS GFR/1.73 sq M.predicted among blacks MDRD (S/P/Bld) [Vol rate/Area] 42 ml/min/1.73sqm Invalid Interpretation Code AO Chemistry S Comment on above: Interpretive Data: GFR Population mean for , Non- Americans Ages 20-29 = 116 mL/min/1.73 sq.m. Ages 30-39 = 107 mL/min/1.73 sq.m. Ages 40-49 = 99 mL/min/1.73 sq.m. Ages 50-59 = 93 mL/min/1.73 sq.m. Ages 60-69 = 85 mL/min/1.73 sq.m. Ages 70+ = 75 mL/min/1.73 sq.m. Chronic Kidney Disease: Less than 60 mL/min/1.73 square meters End Stage Renal Disease: Less than 15 mL/min/1.73 square meters GFR/1.73 sq M.predicted among non-blacks MDRD (S/P/Bld) [Vol rate/Area] 35 ml/min/1.73sqm Invalid Interpretation Code AO Chemistry S Comment on above: Interpretive Data: GFR Population mean for , Non- Americans Ages 20-29 = 116 mL/min/1.73 sq.m. Ages 30-39 = 107 mL/min/1.73 sq.m. Ages 40-49 = 99 mL/min/1.73 sq.m. Ages 50-59 = 93 mL/min/1.73 sq.m. Ages 60-69 = 85 mL/min/1.73 sq.m. Ages 70+ = 75 mL/min/1.73 sq.m. Chronic Kidney Disease: Less than 60 mL/min/1.73 square meters End Stage Renal Disease: Less than 15 mL/min/1.73 square meters Globulin 3.7 G/dL Invalid Interpretation Code AO ADM SS Glucose [Mass/Vol] 139 mg/dL High 83 - 110 mg/dL AO ADM SS Hematocrit (Bld) [Volume fraction] 40.7 % Low 42.0 - 52.0 % AO Workflow SS Hemoglobin (Bld) [Mass/Vol] 14.1 G/dL Normal 14.0 - 18.0 G/dL AO Workflow SS Lymphocyte, Absolute 0.7 103/mcL Low 0.8 - 3 .9 10^3/mcL AO Workflow SS Lymphocytes/100 WBC (Bld) 5.2 % Low 10.0 - 50.0 % AO Workflow SS MCH (RBC) [Entitic mass] 31.5 pg High 27.0 - 31.2 pg AO Workflow SS MCHC 34.7 G/dL Normal 31.8 - 35.4 G/dL AO Workflow SS MCV (RBC) [Entitic vol] 90.7 fL Normal 80.0 - 94.0 fL AO Workflow SS Monocyte, Absolute 1.5 103/mcL High 0.2 - 1.0 10^3/mcL AO Workflow SS Monocytes/100 WBC (Bld) 11.5 % Normal 1.7 - 13.0 % AO Workflow SS Natriuretic peptide.B prohormone N-Terminal [Mass/Vol] 3142 pg/mL High 0 - 450 pg/mL AO ADM SS Comment on above: Interpretive Data: N T-proBNP results of less than 300 pg/mL effectively rules out acute congestive heart failure with 99% negative predictive value. Neutrophil, Absolute 10.5 103/mcL High 2.9 - 6 .2 10^3/mcL AO Workflow SS Neutrophils/100 WBC (Bld) 82.9 % High 37.0 - 80.0 % AO Workflow SS Platelet mean volume (Bld) [Entitic vol] 8.6 fL Normal 7.4 - 10.4 fL AO Workflow SS Platelets (Bld) [#/Vol] 185 103/mcL Normal 130 - 400 10^3/mcL AO Workflow SS Potassium [Moles/Vol] 4.2 mmol/L Normal 3.5 - 5.1 mmol/L AO ADM SS Protein [Mass/Vol] 7.0 G/dL Normal 6.4 - 8.2 G/dL AO ADM SS RBC (Bld) [#/Vol] 4.49 106/mcL Normal 4.04 - 6.1 3 10^6/mcL AO Workflow SS Sodium [Moles/Vol] 138 mmol/L Normal 136 - 145 mmol/L AO ADM SS TSH Qn 1.52 m[IU]/L Normal 0.36 - 3.74 mcIU/mL AO ADM SS Urea nitrogen [Mass/Vol] 24 mg/dL High 7 - 18 mg/dL AO ADM SS Urea nitrogen/Creatinine [Mass ratio] 13 ratio Normal 7 - 27 ratio AO ADM SS WBC (Bld) [#/Vol] 12.7 103/mcL High 4.6 - 10.8 10^3/mcL AO Workflow SS LABORATORYOrdered By: Lynn Linares on 12-20-2023 Cholesterol [Mass/Vol] 120 mg/dL Normal 0 - 200 mg/dL AO ADM SS Comment on above: Interpretive Data: C holesterol Reference Interval: Less than 200 Desirable 200-239 Borderline high risk 240 and above High risk Cholesterol in HDL [Mass/Vol] 32 mg/dL Low 40 - 60 mg/dL AO ADM SS Cholesterol in LDL [Mass/Vol] 72 mg/dL Normal 0 - 130 mg/dL AO ADM SS Triglyceride [Mass/Vol] 82 mg/dL Normal 0 - 150 mg/dL AO ADM SS Comment on above: Interpretive Data: T riglyceride Reference Interval: Less than 150 Normal 150-199 Borderline high risk 200-499 High risk 500 or higher Very high risk LIPIDon 12-20-2023 Cholesterol [Mass/Vol] 120 mg/dL Normal 0-200 [facility] ([place]) Comment on above: Result Comment: Chol esterol Reference Interval: Less than 200 Desirable 200-239 Borderline high risk 240 and above High risk Performed By: #### C OCTAVIO MARTINEZ GFR, MDW, BMP, ANEU #### [facility] [address] [place] [address] Cholesterol in HDL [Mass/Vol] 32 mg/dL Low 40-60 [facility] ([place]) Comment on above: Performed By: #### C OCTAVIO MARTINEZ GFR, MDW, BMP, ANEU #### [facility] [address] [place] [address] Cholesterol in LDL [Mass/Vol] 72 mg/dL Normal 0-130 [facility] ([place]) Comment on above: Performed By: #### C OCTAVIO MARTINEZ GFR, MDW, BMP, ANEU #### [facility] [address] [place] [address] Triglyceride [Mass/Vol] 82 mg/dL Normal 0-150 [facility] ([place]) Comment on above: Result Comment: Trig lyceride Reference Interval: Less than 150 Normal 150-199 Borderline high risk 200-499 High risk 500 or higher Very high risk Performed By: #### C OCTAVIO MARTINEZ, DANK, MATTEO, BMP, ANEU #### [address] [address] PBNPon 12-20-2023 Natriuretic peptide B (Bld) [Mass/Vol] 3142 pg/mL High 0-450 [facility] ([place]) Comment on above: Result Comment: NT-p roBNP results of less than 300 pg/mL effectively rules out acute congestive heart failure with 99% negative predictive value. Performed By: #### C MICHELLE, OCTAVIO, DANK, MATTEO, BMP, ANEU #### [place] [id number] TSHon 12-20-2023 TSH Qn 1.52 m[IU]/L Normal 0.36-3.74 [facility] ([place]) Comment on above: Performed By: #### C MICHELLE, OCTAVIO, DANK, MATTEO, BMP, ANEU #### [place] [id number] No Panel Informationon 10-22 Culture Wound Aerobe No growth at 48 hours. [facility] No organisms seen. [facility] LABORATORYOrdered By: Carmita Barbosa on 10-19-2023 Cholesterol [Mass/Vol] 83 mg/dL Normal 0 - 200 mg/dL AO ADM SS Comment on above: Interpretive Data: C holesterol Reference Interval: Less than 200 Desirable 200-239 Borderline high risk 240 and above High risk Cholesterol in HDL [Mass/Vol] 49 mg/dL Normal 40 - 60 mg/dL AO ADM SS Cholesterol in LDL [Mass/Vol] 19 mg/dL Normal 0 - 130 mg/dL AO ADM SS Triglyceride [Mass/Vol] 75 mg/dL Normal 0 - 150 mg/dL AO ADM SS Comment on above: Interpretive Data: T riglyceride Reference Interval: Less than 150 Normal 150-199 Borderline high risk 200-499 High risk 500 or higher Very high risk LIPIDon 10-19-2023 Cholesterol [Mass/Vol] 83 mg/dL Normal 0-200 [facility] ([place]) Comment on above: Result Comment: Chol esterol Reference Interval: Less than 200 Desirable 200-239 Borderline high risk 240 and above High risk Performed By: #### U A, UAMIC #### [address] [address] Cholesterol in HDL [Mass/Vol] 49 mg/dL Normal 40-60 [facility] ([place]) Comment on above: Performed By: #### U A, UAMIC #### [address] [address] Cholesterol in LDL [Mass/Vol] 19 mg/dL Normal 0-130 [facility] ([place]) Comment on above: Performed By: #### U A, UAMIC #### [address] [address] Triglyceride [Mass/Vol] 75 mg/dL Normal 0-150 [facility] ([place]) Comment on above: Result Comment: Trig lyceride Reference Interval: Less than 150 Normal 150-199 Borderline high risk 200-499 High risk 500 or higher Very high risk Performed By: #### U A, UAMIC #### [address] [address] .Auto Diffon 09-03-2023 Basophil, Absolute 0.1 10 3/mcL Normal 0.0-0.2 [facility] ([place]) Comment on above: Performed By: #### U A, UAMIC #### [address] [address] Basophils/100 WBC (Bld) 0.4 % Normal 0.0-2.5 [facility] ([place]) Comment on above: Performed By: #### U A, UAMIC #### [address] [address] Eosinophil, Absolute 0.0 10 3/mcL Normal 0.0-0.4 [facility] ([place]) Comment on above: Performed By: #### U A, UAMIC #### [address] [address] Eosinophils/100 WBC (Bld) 0.1 % Normal 0.0-7.0 [facility] ([place]) Comment on above: Performed By: #### U A, UAMIC #### [facility] [address] [place] [address] Lymphocyte, Absolute 0.5 10 3/mcL Low 0.8-3.9 [facility] ([place]) Comment on above: Performed By: #### U A, UAMIC #### [facility] [address] [place] [address] Lymphocytes/100 WBC (Bld) 3.6 % Low 10.0-50.0 [facility] ([place]) Comment on above: Performed By: #### U A, UAMIC #### [address] [address] Monocyte, Absolute 1.3 10 3/mcL High 0.2-1.0 [facility] ([place]) Comment on above: Performed By: #### U A, UAMIC #### [address] [address] Monocytes/100 WBC (Bld) 9.0 % Normal 1.7-13.0 [facility] ([place]) Comment on above: Performed By: #### U A, UAMIC #### [address] [address] Neutrophils/100 WBC (Bld) 86.9 % High 37.0-80.0 [facility] ([place]) Comment on above: Performed By: #### U A, UAMIC #### [address] [address] .GFRon 09-03-2023 GFR 58 ml/min/1.73sqm Normal [facility] ([place]) Comment on above: Result Comment: GFR Population mean for , Non- Americans Ages 20-29 = 116 mL/min/1.73 sq.m. Ages 30-39 = 107 mL/min/1.73 sq.m. Ages 40-49 = 99 mL/min/1.73 sq.m. Ages 50-59 = 93 mL/min/1.73 sq.m. Ages 60-69 = 85 mL/min/1.73 sq.m. Ages 70+ = 75 mL/min/1.73 sq.m. Chronic Kidney Disease: Less than 60 mL/min/1.73 square meters End Stage Renal Disease: Less than 15 mL/min/1.73 square meters Performed By: #### M DW, TROPHS, CBC, ADIFF, ANEU, BMP, MORPH, GFR #### [place] [address] [place], [place] [address] GFR Non- 48 ml/min/1.73sqm Normal [facility] ([place]) Comment on above: Result Comment: GFR Population mean for , Non- Americans Ages 20-29 = 116 mL/min/1.73 sq.m. Ages 30-39 = 107 mL/min/1.73 sq.m. Ages 40-49 = 99 mL/min/1.73 sq.m. Ages 50-59 = 93 mL/min/1.73 sq.m. Ages 60-69 = 85 mL/min/1.73 sq.m. Ages 70+ = 75 mL/min/1.73 sq.m. Chronic Kidney Disease: Less than 60 mL/min/1.73 square meters End Stage Renal Disease: Less than 15 mL/min/1.73 square meters Performed By: #### M DW, TROPHS, CBC, ADIFF, ANEU, BMP, MORPH, GFR #### [place] [address] [place], [place] [address] .MDWon 09-03-2023 Monocyte Distribution Width 25.30 High 0.00-20.00 [facility] ([place]) Comment on above: Result Comment: For adults in ED, MDW>20.0 may be associated with a higher risk of sepsis during the first 12hrs of hospital admission The predictive value of MDW for identifying sepsis in patients with hematological abnormalities has not been established Performed By: #### U A UAMIC #### [address] [address] .Morphon 09-03-2023 Platelet Estimate Normal Normal [facility] ([place]) Comment on above: Performed By: #### U A, UAMIC #### [address] [address] .NEUABSon 09-03-2023 Neutrophil, Absolute 12.6 10 3/mcL High 2.9-6.2 [facility] ([place]) Comment on above: Performed By: #### U A, UAMIC #### [address] [address] .Urinalysis Microscopic (AO) on 09-03-2023 UA Bacteria 4+ /hpf Abnormal [facility] ([place]) Comment on above: Performed By: #### U A, UAMIC #### [place] [address] UA RBC None Seen Normal None Seen [facility] ([place]) Comment on above: Performed By: #### U A, UAMIC #### [address] [address] UA Squam Epithelial 0-5 Abnormal None Seen [facility] ([place]) Comment on above: Performed By: #### U A, UAMIC #### [place] [address] UA WBC LOADED Abnormal None Seen [facility] ([place]) Comment on above: Performed By: #### U A, UAMIC #### [place] [address] BMPon 09-03-2023 BUN/Creatinine Ratio 19 ratio Normal 7-27 [facility] ([place]) Comment on above: Performed By: #### M DW, TROPHS, CBC, ADIFF, ANEU, BMP, MORPH, GFR #### [address] [address] Calcium [Mass/Vol] 9.3 mg/dL Normal 8.4-10.2 [facility] ([place]) Comment on above: Performed By: #### M DW, TROPHS, CBC, ADIFF, ANEU, BMP, MORPH, GFR #### [address] [address] Chloride [Moles/Vol] 102 mmol/L Normal 98-107 [facility] ([place]) Comment on above: Performed By: #### M DW, TROPHS, CBC, ADIFF, ANEU, BMP, MORPH, GFR #### [address] [address] CO2 [Moles/Vol] 26 mmol/L Normal 23-31 [facility] ([place]) Comment on above: Performed By: #### M DW, TROPHS, CBC, ADIFF, ANEU, BMP, MORPH, GFR #### [address] [address] Creatinine [Mass/Vol] 1.44 mg/dL High 0.70-1.30 [facility] ([place]) Comment on above: Performed By: #### M DW, TROPHS, CBC, ADIFF, ANEU, BMP, MORPH, GFR #### [address] [address] Electrolyte Balance 10.0 mEq/L Normal 4.0-15.0 [facility] ([place]) Comment on above: Performed By: #### M DW, TROPHS, CBC, ADIFF, ANEU, BMP, MORPH, GFR #### [address] [address] Glucose [Mass/Vol] 213 mg/dL High 83-110 [facility] ([place]) Comment on above: Performed By: #### M DW, TROPHS, CBC, ADIFF, ANEU, BMP, MORPH, GFR #### [address] [address] Potassium [Moles/Vol] 3.8 mmol/L Normal 3.5-5.1 [facility] ([place]) Comment on above: Performed By: #### M DW, TROPHS, CBC, ADIFF, ANEU, BMP, MORPH, GFR #### [address] [address] Sodium [Moles/Vol] 138 mmol/L Normal 136-145 [facility] ([place]) Comment on above: Performed By: #### M DW, TROPHS, CBC, ADIFF, ANEU, BMP, MORPH, GFR #### [address] [address] Urea nitrogen [Mass/Vol] 27 mg/dL High 7-18 [facility] ([place]) Comment on above: Performed By: #### M DW, TROPHS, CBC, ADIFF, ANEU, BMP, MORPH, GFR #### [place] [address] [place], [place] [address] CBCon 09-03-2023 Erythrocyte distribution width (RBC) [Ratio] 14.4 % Normal 11.5-14.5 [facility] ([place]) Comment on above: Performed By: #### U A, UAMIC #### [address] [address] Hematocrit (Bld) [Volume fraction] 44.6 % Normal 42.0-52.0 [facility] ([place]) Comment on above: Performed By: #### U A, UAMIC #### [address] [address] Hgb 14.7 G/dL Normal 14.0-18.0 [facility] ([place]) Comment on above: Performed By: #### Moise Harrison, UAMIC #### [address] [address] MCH (RBC) [Entitic mass] 30.2 pg Normal 27.0-31.2 [facility] ([place]) Comment on above: Performed By: #### U Hunter UAMIC #### [place] [address] MCHC 33.1 G/dL Normal 31.8-35.4 [facility] ([place]) Comment on above: Performed By: #### U Hunter, UAMIC #### [place] [id number] MCV (RBC) [Entitic vol] 91.4 fL Normal 80.0-94.0 [facility] ([place]) Comment on above: Performed By: #### U A, UAMIC #### [address] [address] Platelet 150 10 3/mcL Normal 130-400 [facility] ([place]) Comment on above: Performed By: #### U A, UAMIC #### [place] [id number] Platelet mean volume (Bld) [Entitic vol] 8.8 fL Normal 7.4-10.4 [facility] ([place]) Comment on above: Performed By: #### U A, UAMIC #### [place] [address] RBC 4.88 10 6/mcL Normal 4.04-6.13 [facility] ([place]) Comment on above: Performed By: #### U A, UAMIC #### [place] [address] WBC 14.5 10 3/mcL High 4.6-10.8 [facility] ([place]) Comment on above: Performed By: #### U A, UAMIC #### [place] [address] TROPHSon 09-03-2023 Troponin I High Sensitivity 28.3 ng/L Normal 0.0-76.2 [facility] ([place]) Comment on above: Performed By: #### U A, UAMIC #### [place] [address] UAon 09-03-2023 Color (U) Yellow Normal [facility] ([place]) Comment on above: Performed By: #### U A, UAMIC #### [place] [address] Glucose (U) [Mass/Vol] Negative Normal Negative [facility] ([place]) Comment on above: Performed By: #### U A, UAMIC #### [place] [address] Ketones Ql (U) 40 mg/dL Abnormal Negative [facility] ([place]) Comment on above: Performed By: #### U A, UAMIC #### [place] [address] UA Appear Cloudy Abnormal Clear [facility] ([place]) Comment on above: Performed By: #### U A, UAMIC #### [place] [address] UA Blood Trace Abnormal Negative [facility] ([place]) Comment on above: Performed By: #### U A, UAMIC #### [place] [address] UA Leuk Est Trace Abnormal Negative [facility] ([place]) Comment on above: Performed By: #### U A, UAMIC #### [address] [address] UA Nitrite Positive Abnormal Negative [facility] ([place]) Comment on above: Performed By: #### U A, UAMIC #### [place] [address] UA pH 6.0 Normal 5.0 - 8.0 [facility] ([place]) Comment on above: Performed By: #### U A, UAMIC #### [place] [address] UA Protein 30 mg/dL Normal Negative [facility] ([place]) Comment on above: Performed By: #### U A, UAMIC #### [place] [address] UA Spec Grav 1.020 Normal 1.015-1.025 [facility] ([place]) Comment on above: Performed By: #### U A, UAMIC #### [place] [address] UA Specimen Type Void Normal [facility] ([place]) Comment on above: Performed By: #### U A, UAMIC #### [place] [address] UA Urobilinogen 1.0 E.U./dL Normal 0.2-1.0 [facility] ([place]) Comment on above: Performed By: #### U A, UAMIC #### [place] [address] Urobilinogen (U) [Mass/Vol] Negative Normal Negative [facility] ([place]) Comment on above: Performed By: #### U A, UAMIC #### [place] [address] XR CHEST 1 VIEWon 09-03-2023 XR CHEST 1 VIEW ORIGINAL EXAMINATION: ONE XRAY VIEW OF THE CHEST 09/03/2023 5:45 pm COMPARISON: Chest x-ray 08/27/2022 HISTORY: ORDERING SYSTEM PROVIDED HISTORY: Reason for Exam: chest pain FINDINGS: Prior sternotomy. Cardiomediastinal contour is stable. No focal consolidation or pulmonary edema. No pneumothorax or pleural effusion. Intact right reverse shoulder arthroplasty. No acute osseous abnormality. IMPRESSION: No acute radiographic abnormality. I have reviewed this report and agree with the resident findings and interpretation. Interpreted by: Benito Marquez MD Preliminary Report By: Fortino Alonzo Electronically signed By Benito Marquez MD Dictated Date: 09/03/2023 5:49:51 PM Prelim Date: 09/03/2023 5:50:54 PM Sign Date: 09/03/2023 5:52:58 PM Ordering Provider: VIVI Davidson [facility] ([place]) .Auto Diffon 05-31-2023 Basophil, Absolute 0.0 10 3/mcL Normal 0.0-0.3 [facility] ([place]) Comment on above: Performed By: #### C BC, ADDEVIKA, GFR, MDW, BMP, ANEU #### [address] [address] Basophils/100 WBC (Bld) 0.2 % Normal 0.0-2.5 [facility] ([place]) Comment on above: Performed By: #### C BC, ADIFF, GFR, MDW, BMP, ANEU #### [address] [address] Eosinophil, Absolute 0.0 10 3/mcL Normal 0.0-0.7 [facility] ([place]) Comment on above: Performed By: #### C BC, ADIFF, GFR, MDW, BMP, ANEU #### [address] [address] Eosinophils/100 WBC (Bld) 0.4 % Normal 0.0-6.0 [facility] ([place]) Comment on above: Performed By: #### C BC, ADIFF, GFR, MDW, BMP, ANEU #### [address] [address] Lymphocyte, Absolute 0.5 10 3/mcL Low 0.9-4.3 [facility] ([place]) Comment on above: Performed By: #### C BC, ADIFF, GFR, MDW, BMP, ANEU #### [address] [address] Lymphocytes/100 WBC (Bld) 6.1 % Low 20.0-40.0 [facility] ([place]) Comment on above: Performed By: #### C BC, ADIFF, GFR, MDW, BMP, ANEU #### [address] [address] Monocyte, Absolute 0.3 10 3/mcL Normal 0.1-1.4 [facility] ([place]) Comment on above: Performed By: #### C BC, ADIFF, GFR, MDW, BMP, ANEU #### [address] [address] Monocytes/100 WBC (Bld) 3.8 % Normal 2.0-13.0 [facility] ([place]) Comment on above: Performed By: #### C BC, ADIFF, GFR, MDW, BMP, ANEU #### [address] [address] Neutrophils/100 WBC (Bld) 89.5 % High 50.0-75.0 [facility] ([place]) Comment on above: Performed By: #### C BC, ADIFF, GFR, MDW, BMP, ANEU #### [address] [address] .GFRon 05-31-2023 GFR Non- 55 ml/min/1.73sqm Normal [facility] ([place]) Comment on above: Result Comment: GFR Population mean for , Non- Americans Ages 20-29 = 116 mL/min/1.73 sq.m. Ages 30-39 = 107 mL/min/1.73 sq.m. Ages 40-49 = 99 mL/min/1.73 sq.m. Ages 50-59 = 93 mL/min/1.73 sq.m. Ages 60-69 = 85 mL/min/1.73 sq.m. Ages 70+ = 75 mL/min/1.73 sq.m. Chronic Kidney Disease: Less than 60 mL/min/1.73 square meters End Stage Renal Disease: Less than 15 mL/min/1.73 square meters Performed By: #### C BC, ADIFF, GFR, MDW, BMP, ANEU #### [address] [address] GFR >60 Normal [facility] ([place]) Comment on above: Result Comment: GFR Population mean for , Non- Americans Ages 20-29 = 116 mL/min/1.73 sq.m. Ages 30-39 = 107 mL/min/1.73 sq.m. Ages 40-49 = 99 mL/min/1.73 sq.m. Ages 50-59 = 93 mL/min/1.73 sq.m. Ages 60-69 = 85 mL/min/1.73 sq.m. Ages 70+ = 75 mL/min/1.73 sq.m. Chronic Kidney Disease: Less than 60 mL/min/1.73 square meters End Stage Renal Disease: Less than 15 mL/min/1.73 square meters Performed By: #### C BC, ADIFF, GFR, MDW, BMP, ANEU #### [address] [address] .MDWon 05-31-2023 Monocyte Distribution Width 24.50 High 0.00-20.00 [facility] ([place]) Comment on above: Result Comment: For adults in ED, MDW>20.0 may be associated with a higher risk of sepsis during the first 12hrs of hospital admission Performed By: #### C BC, ADIFF, GFR, MDW, BMP, ANEU #### [address] [address] .NEUABSon 05-31-2023 Neutrophil, Absolute 7.9 10 3/mcL Normal 2.3-8.1 [facility] ([place]) Comment on above: Performed By: #### C BC, ADIFF, GFR, MDW, BMP, ANEU #### [address] [address] BMPon 05-31-2023 BUN/Creatinine Ratio 18.9 ratio Normal 10.0-22.0 [facility] ([place]) Comment on above: Performed By: #### C BC, ADIFF, GFR, MDW, BMP, ANEU #### [address] [address] Calcium [Mass/Vol] 9.0 mg/dL Normal 8.7-10.4 [facility] ([place]) Comment on above: Performed By: #### C BC, ADIFF, GFR, MDW, BMP, ANEU #### [address] [address] Chloride [Moles/Vol] 108 mmol/L Normal 98-110 [facility] ([place]) Comment on above: Performed By: #### C BC, ADIFF, GFR, MDW, BMP, ANEU #### [address] [address] CO2 [Moles/Vol] 24 mmol/L Normal 22-32 [facility] ([place]) Comment on above: Performed By: #### C BC, ADIFF, GFR, MDW, BMP, ANEU #### [address] [address] Creatinine [Mass/Vol] 1.27 mg/dL Normal 0.60-1.40 [facility] ([place]) Comment on above: Performed By: #### C BC, ADIFF, GFR, MDW, BMP, ANEU #### [address] [address] Electrolyte Balance 4.0 mEq/L Normal 4.0-15.0 [facility] ([place]) Comment on above: Performed By: #### C BC, ADIFF, GFR, MDW, BMP, ANEU #### [address] [address] Glucose [Mass/Vol] 147 mg/dL High 82-115 [facility] ([place]) Comment on above: Performed By: #### C BC, ADIFF, GFR, MDW, BMP, ANEU #### [address] [address] Potassium [Moles/Vol] 3.5 mmol/L Normal 3.5-5.0 [facility] ([place]) Comment on above: Result Comment: Spec imen slightly hemolyzed. Performed By: #### C BC, ADIFF, GFR, MDW, BMP, ANEU #### [address] [address] Sodium [Moles/Vol] 136 mmol/L Normal 136-145 [facility] ([place]) Comment on above: Performed By: #### C BC, ADIFF, GFR, MDW, BMP, ANEU #### [place] [address] Urea nitrogen [Mass/Vol] 24.0 mg/dL High 8.0-22.0 [facility] ([place]) Comment on above: Performed By: #### C BC, ADIFF, GFR, MDW, BMP, ANEU #### [place] [address] CBCon 05-31-2023 Erythrocyte distribution width (RBC) [Ratio] 13.9 % Normal 11.5-15.5 [facility] ([place]) Comment on above: Performed By: #### C BC, ADIFF, GFR, MDW, BMP, ANEU #### [place] [address] Hematocrit (Bld) [Volume fraction] 41.9 % Normal 40.0-52.0 [facility] ([place]) Comment on above: Performed By: #### C BC, ADDEVIKA, GFR, MDW, BMP, ANEU #### [place] [address] Hgb 14.5 G/dL Normal 13.0-17.5 [facility] ([place]) Comment on above: Performed By: #### C BC, OCTAVIO, GFR, MDW, BMP, ANEU #### [place] [address] MCH (RBC) [Entitic mass] 31.8 pg Normal 27.0-33.0 [facility] ([place]) Comment on above: Performed By: #### C BC, ADIFF, GFR, MDW, BMP, ANEU #### [place] [address] MCHC 34.5 G/dL Normal 32.0-36.0 [facility] ([place]) Comment on above: Performed By: #### C BC, ADIFF, GFR, MDW, BMP, ANEU #### [place] [address] MCV (RBC) [Entitic vol] 92.2 fL Normal 81.0-100.0 [facility] ([place]) Comment on above: Performed By: #### C BC, ADIFF, GFR, MDW, BMP, ANEU #### [address] [address] Platelet 155 10 3/mcL Normal 150-450 [facility] ([place]) Comment on above: Performed By: #### C BC, OCTAVIO, GFR, MDW, BMP, ANEU #### [address] [address] Platelet mean volume (Bld) [Entitic vol] 9.9 fL Normal 6.4-10.5 [facility] ([place]) Comment on above: Performed By: #### C BC, OCTAVIO, GFR, MDW, BMP, ANEU #### [place] [id number] RBC 4.55 10 6/mcL Normal 4.50-6.00 [facility] ([place]) Comment on above: Performed By: #### C BC, OCTAVIO, GFR, MDW, BMP, ANEU #### [place] [id number] WBC 8.8 10 3/mcL Normal 4.5-10.8 [facility] ([place]) Comment on above: Performed By: #### C BC, OCTAVIO, GFR, MDW, BMP, ANEU #### [place] [address] LABORATORYOrdered By: Mary Pate on 05-31-2023 Appearance (U) Cloudy *ABN* (05/31/23 12:14 PM) Invalid Interpretation Code Clear Auto Urine SS Bacteria LM.HPF (Urine sed) [#/Area] 4 /[HPF] Invalid Interpretation Code Negative Auto Urine SS Bilirubin Ql (U) Negative (05/31/23 12:14 PM) Invalid Interpretation Code Neg-Trace AH Auto Urine SS Color (U) DARK YELLOW Invalid Interpretation Code AH Auto Urine SS Glucose Test strip (U) [Mass/Vol] Negative Invalid Interpretation Code Negative AH Auto Urine SS Hemoglobin Auto test strip (U) [Mass/Vol] Moderate *ABN* (05/31/23 12:14 PM) Invalid Interpretation Code Neg-Trace AH Auto Urine SS Ketones Ql (U) Trace mg/dL Invalid Interpretation Code Neg-Trace AH Auto Urine SS UA Leuk Est Large *ABN* (05/31/23 12:14 PM) Invalid Interpretation Code Negative AH Auto Urine SS UA Mucous 2+ /HPF Invalid Interpretation Code AH Auto Urine SS UA Nitrite Negative (05/31/23 12:14 PM) Invalid Interpretation Code Negative AH Auto Urine SS UA pH 6.0 (05/31/23 12:14 PM) Invalid Interpretation Code 5.0 - 8.0 AH Auto Urine SS UA Protein 100 mg/dL Invalid Interpretation Code Negative AH Auto Urine SS UA RBC 3-5 /HPF Invalid Interpretation Code 0-2 AH Auto Urine SS UA Spec Grav 1.020 (05/31/23 12:14 PM) Invalid Interpretation Code 1.006-1.029 AH Auto Urine SS UA Specimen Type Clean Catch (05/31/23 12:14 PM) Invalid Interpretation Code AH Auto Urine SS UA Squam Epithelial 3-5 /HPF Invalid Interpretation Code 0-20 AH Auto Urine SS UA Urobilinogen 1.0 E.U./dL Invalid Interpretation Code 0.2-1.0 AH Auto Urine SS WBC LM.HPF (Urine sed) [#/Area] LOADED /HPF Invalid Interpretation Code 0-5 AH Auto Urine SS LABORATORYOrdered By: SYSTEM SYSTEM on 05-31-2023 Basophils (Bld) [#/Vol] 0.0 103/mcL Invalid Interpretation Code 0.0 - 0.3 10^3/mcL Workflow SS Basophils/100 WBC (Bld) 0.2 % Invalid Interpretation Code 0.0 - 2.5 % Workflow SS Calcium [Mass/Vol] 9.0 mg/dL Invalid Interpretation Code 8.7 - 10.4 mg/dL ADM SS Chloride [Moles/Vol] 108 mmol/L Invalid Interpretation Code 98 - 110 mEq/L ADM SS CO2 [Moles/Vol] 24 mmol/L Invalid Interpretation Code 22 - 32 mEq/L ADM SS Creatinine [Mass/Vol] 1.27 mg/dL Invalid Interpretation Code 0.60 - 1.40 mg/dL AH ADM SS Electrolyte Balance 4.0 mEq/L Invalid Interpretation Code 4.0 - 15.0 mEq/L AH ADM SS Eosinophils (Bld) [#/Vol] 0.0 103/mcL Invalid Interpretation Code 0.0 - 0.7 10^3/mcL AH Workflow SS Eosinophils/100 WBC (Bld) 0.4 % Invalid Interpretation Code 0.0 - 6.0 % Workflow SS Erythrocyte distribution width (RBC) [Ratio] 13.9 % Invalid Interpretation Code 11.5 - 15.5 % [facility] GFR/1.73 sq M.predicted among blacks MDRD (S/P/Bld) [Vol rate/Area] ml/min/1.73sqm Invalid Interpretation Code [facility] Comment on above: Interpretive Data: GFR Population mean for , Non- Americans Ages 20-29 = 116 mL/min/1.73 sq.m. Ages 30-39 = 107 mL/min/1.73 sq.m. Ages 40-49 = 99 mL/min/1.73 sq.m. Ages 50-59 = 93 mL/min/1.73 sq.m. Ages 60-69 = 85 mL/min/1.73 sq.m. Ages 70+ = 75 mL/min/1.73 sq.m. Chronic Kidney Disease: Less than 60 mL/min/1.73 square meters End Stage Renal Disease: Less than 15 mL/min/1.73 square meters GFR/1.73 sq M.predicted among non-blacks MDRD (S/P/Bld) [Vol rate/Area] 55 ml/min/1.73sqm Invalid Interpretation Code [facility] Comment on above: Interpretive Data: GFR Population mean for , Non- Americans Ages 20-29 = 116 mL/min/1.73 sq.m. Ages 30-39 = 107 mL/min/1.73 sq.m. Ages 40-49 = 99 mL/min/1.73 sq.m. Ages 50-59 = 93 mL/min/1.73 sq.m. Ages 60-69 = 85 mL/min/1.73 sq.m. Ages 70+ = 75 mL/min/1.73 sq.m. Chronic Kidney Disease: Less than 60 mL/min/1.73 square meters End Stage Renal Disease: Less than 15 mL/min/1.73 square meters Glucose [Mass/Vol] 147 mg/dL Invalid Interpretation Code 82 - 115 mg/dL [facility] Hematocrit (Bld) [Volume fraction] 41.9 % Invalid Interpretation Code 40.0 - 52.0 % Workflow Hemoglobin (Bld) [Mass/Vol] 14.5 G/dL Invalid Interpretation Code 13.0 - 17.5 G/dL AH Workflow SS Lymphocytes (Bld) [#/Vol] 0.5 103/mcL Invalid Interpretation Code 0.9 - 4.3 10^3/mcL AH Workflow SS Lymphocytes/100 WBC (Bld) 6.1 % Invalid Interpretation Code 20.0 - 40.0 % AH Workflow SS MCH (RBC) [Entitic mass] 31.8 pg Invalid Interpretation Code 27.0 - 33.0 pg AH Workflow SS MCHC 34.5 G/dL Invalid Interpretation Code 32.0 - 36.0 G/dL AH Workflow SS MCV (RBC) [Entitic vol] 92.2 fL Invalid Interpretation Code 81.0 - 100.0 fL AH Workflow SS Monocyte distribution width Auto (Bld) [Entitic vol] 24.50 1 Invalid Interpretation Code 0.00 - 20.00 AH Workflow SS Comment on above: Result Comment: For adults in ED, MDW>20.0 may be associated with a higher risk of sepsis during the first 12hrs of hospital admission Monocytes (Bld) [#/Vol] 0.3 103/mcL Invalid Interpretation Code 0.1 - 1.4 10^3/mcL AH Workflow SS Monocytes/100 WBC (Bld) 3.8 % Invalid Interpretation Code 2.0 - 13.0 % AH Workflow SS Neutrophils (Bld) [#/Vol] 7.9 103/mcL Invalid Interpretation Code 2.3 - 8.1 10^3/mcL AH Workflow SS Neutrophils/100 WBC (Bld) 89.5 % Invalid Interpretation Code 50.0 - 75.0 % AH Workflow SS Platelet mean volume (Bld) [Entitic vol] 9.9 fL Invalid Interpretation Code 6.4 - 10.5 fL AH Workflow SS Platelets (Bld) [#/Vol] 155 103/mcL Invalid Interpretation Code 150 - 450 10^3/mcL AH Workflow SS Potassium [Moles/Vol] 3.5 mmol/L Invalid Interpretation Code 3.5 - 5.0 mEq/L AH ADM SS Comment on above: Result Comment: Spec imen slightly hemolyzed. RBC (Bld) [#/Vol] 4.55 106/mcL Invalid Interpretation Code 4.50 - 6.00 10^6/mcL AH Workflow SS Sodium [Moles/Vol] 136 mmol/L Invalid Interpretation Code 136 - 145 mEq/L ADM SS Urea nitrogen [Mass/Vol] 24.0 mg/dL Invalid Interpretation Code 8.0 - 22.0 mg/dL AH ADM SS Urea nitrogen/Creatinine [Mass ratio] 18.9 ratio Invalid Interpretation Code 10.0 - 22.0 ratio AH ADM SS WBC (Bld) [#/Vol] 8.8 103/mcL Invalid Interpretation Code 4.5 - 10.8 10^3/mcL AH Workflow SS UAon 05-31-2023 Color (U) DARK YELLOW Normal [facility] ([place]) Comment on above: Performed By: #### U A, UAMIC #### [address] [address] Glucose (U) [Mass/Vol] Negative Normal Negative [facility] ([place]) Comment on above: Performed By: #### U A, UAMIC #### [place] [address] Ketones Ql (U) Trace Normal Neg-Trace [facility] ([place]) Comment on above: Performed By: #### U A, UAMIC #### [place] [address] UA Appear Cloudy Abnormal Clear [facility] ([place]) Comment on above: Performed By: #### U A, UAMIC #### [address] [address] UA Blood Moderate Abnormal Neg-Trace [facility] ([place]) Comment on above: Performed By: #### U A, UAMIC #### [address] [address] UA Leuk Est Large Abnormal Negative [facility] ([place]) Comment on above: Performed By: #### U A, UAMIC #### [address] [address] UA Nitrite Negative Normal Negative [facility] ([place]) Comment on above: Performed By: #### U A, UAMIC #### [place] [id number] UA pH 6.0 Normal 5.0 - 8.0 [facility] ([place]) Comment on above: Performed By: #### U A, UAMIC #### [place] [id number] UA Protein 100 mg/dL Abnormal Negative [facility] ([place]) Comment on above: Performed By: #### U A, UAMIC #### [place] [address] UA Spec Grav 1.020 Normal 1.006-1.029 [facility] ([place]) Comment on above: Performed By: #### U A, UAMIC #### [place] [address] UA Specimen Type Clean Catch Normal [facility] ([place]) Comment on above: Performed By: #### U A, UAMIC #### [place] [address] UA Urobilinogen 1.0 E.U./dL Normal 0.2-1.0 [facility] ([place]) Comment on above: Performed By: #### U A, UAMIC #### [place] [address] Urobilinogen (U) [Mass/Vol] Negative Normal Neg-Trace [facility] ([place]) Comment on above: Performed By: #### U A, UAMIC #### [place] [address] UAMICon 05-31-2023 UA Bacteria 4+ /hpf Abnormal Negative [facility] ([place]) Comment on above: Performed By: #### U A, UAMIC #### [place] [address] UA Mucous 2+ /hpf Normal [facility] ([place]) Comment on above: Performed By: #### U A, UAMIC #### [place] [address] UA RBC 3-5 Abnormal 0-2 [facility] ([place]) Comment on above: Performed By: #### U A, UAMIC #### [place] [id number] UA Squam Epithelial 3-5 Normal 0-20 [facility] ([place]) Comment on above: Performed By: #### U A, UAMIC #### [place] [address] UA WBC LOADED Abnormal 0-5 [facility] ([place]) Comment on above: Performed By: #### U A, UAMIC #### [place] [address] LABORATORYOrdered By: SYSTEM SYSTEM on 10-13-2022 Basophils (Bld) [#/Vol] 0.0 103/mcL Invalid Interpretation Code 0.0 - 0.3 10^3/mcL AH Workflow SS Basophils/100 WBC (Bld) 0.3 % Invalid Interpretation Code 0.0 - 2.5 % AH Workflow SS Calcium [Mass/Vol] 9.4 mg/dL Invalid Interpretation Code 8.7 - 10.4 mg/dL ADM SS Chloride [Moles/Vol] 106 mmol/L Invalid Interpretation Code 98 - 110 mEq/L ADM SS CO2 [Moles/Vol] 25 mmol/L Invalid Interpretation Code 22 - 32 mEq/L AH ADM SS Creatinine [Mass/Vol] 1.09 mg/dL Invalid Interpretation Code 0.60 - 1.40 mg/dL AH ADM SS Electrolyte Balance 9.0 mEq/L Invalid Interpretation Code 4.0 - 15.0 mEq/L AH ADM SS Eosinophils (Bld) [#/Vol] 0.1 103/mcL Invalid Interpretation Code 0.0 - 0.7 10^3/mcL AH Workflow SS Eosinophils/100 WBC (Bld) 1.0 % Invalid Interpretation Code 0.0 - 6.0 % AH Workflow SS Erythrocyte distribution width (RBC) [Ratio] 14.6 % Invalid Interpretation Code 11.5 - 15.5 % AH Workflow SS GFR/1.73 sq M.predicted among blacks MDRD (S/P/Bld) [Vol rate/Area] ml/min/1.73sqm Invalid Interpretation Code AH ADM SS GFR/1.73 sq M.predicted among non-blacks MDRD (S/P/Bld) [Vol rate/Area] ml/min/1.73sqm Invalid Interpretation Code AH ADM SS Glucose [Mass/Vol] 142 mg/dL Invalid Interpretation Code 82 - 115 mg/dL AH ADM SS Hematocrit (Bld) [Volume fraction] 45.4 % Invalid Interpretation Code 40.0 - 52.0 % AH Workflow SS Hemoglobin (Bld) [Mass/Vol] 15.2 G/dL Invalid Interpretation Code 13.0 - 17.5 G/dL AH Workflow SS Lymphocytes (Bld) [#/Vol] 1.4 103/mcL Invalid Interpretation Code 0.9 - 4.3 10^3/mcL AH Workflow SS Lymphocytes/100 WBC (Bld) 13.4 % Invalid Interpretation Code 20.0 - 40.0 % AH Workflow SS MCH (RBC) [Entitic mass] 30.5 pg Invalid Interpretation Code 27.0 - 33.0 pg AH Workflow SS MCHC 33.5 G/dL Invalid Interpretation Code 32.0 - 36.0 G/dL AH Workflow SS MCV (RBC) [Entitic vol] 91.0 fL Invalid Interpretation Code 81.0 - 100.0 fL AH Workflow SS Monocytes (Bld) [#/Vol] 1.1 103/mcL Invalid Interpretation Code 0.1 - 1.4 10^3/mcL AH Workflow SS Monocytes/100 WBC (Bld) 10.7 % Invalid Interpretation Code 2.0 - 13.0 % AH Workflow SS Neutrophils (Bld) [#/Vol] 7.9 103/mcL Invalid Interpretation Code 2.3 - 8.1 10^3/mcL AH Workflow SS Neutrophils/100 WBC (Bld) 74.6 % Invalid Interpretation Code 50.0 - 75.0 % AH Workflow SS Platelet mean volume (Bld) [Entitic vol] 9.8 fL Invalid Interpretation Code 6.4 - 10.5 fL AH Workflow SS Platelets (Bld) [#/Vol] 190 103/mcL Invalid Interpretation Code 150 - 450 10^3/mcL AH Workflow SS Potassium [Moles/Vol] 4.2 mmol/L Invalid Interpretation Code 3.5 - 5.0 mEq/L ADM SS Comment on above: Result Comment: Spec imen slightly hemolyzed. RBC (Bld) [#/Vol] 4.99 106/mcL Invalid Interpretation Code 4.50 - 6.00 10^6/mcL AH Workflow SS Sodium [Moles/Vol] 140 mmol/L Invalid Interpretation Code 136 - 145 mEq/L ADM SS Urea nitrogen [Mass/Vol] 16.0 mg/dL Invalid Interpretation Code 8.0 - 22.0 mg/dL ADM SS Urea nitrogen/Creatinine [Mass ratio] 14.7 ratio Invalid Interpretation Code 10.0 - 22.0 ratio AH ADM SS WBC (Bld) [#/Vol] 10.6 103/mcL Invalid Interpretation Code 4.5 - 10.8 10^3/mcL AH Workflow SS LABORATORYOrdered By: SYSTEM SYSTEM on 10-12-2022 Calcium [Mass/Vol] 9.2 mg/dL Invalid Interpretation Code 8.7 - 10.4 mg/dL ADM SS Chloride [Moles/Vol] 109 mmol/L Invalid Interpretation Code 98 - 110 mEq/L ADM SS CO2 [Moles/Vol] 25 mmol/L Invalid Interpretation Code 22 - 32 mEq/L ADM SS Creatinine [Mass/Vol] 1.03 mg/dL Invalid Interpretation Code 0.60 - 1.40 mg/dL ADM SS Electrolyte Balance 7.0 mEq/L Invalid Interpretation Code 4.0 - 15.0 mEq/L ADM SS GFR/1.73 sq M.predicted among blacks MDRD (S/P/Bld) [Vol rate/Area] ml/min/1.73sqm Invalid Interpretation Code ADM SS GFR/1.73 sq M.predicted among non-blacks MDRD (S/P/Bld) [Vol rate/Area] ml/min/1.73sqm Invalid Interpretation Code ADM SS Glucose [Mass/Vol] 168 mg/dL Invalid Interpretation Code 82 - 115 mg/dL ADM SS Magnesium [Mass/Vol] 2.0 mg/dL Invalid Interpretation Code 1.6 - 2.4 mg/dL ADM SS Potassium [Moles/Vol] 3.9 mmol/L Invalid Interpretation Code 3.5 - 5.0 mEq/L ADM SS Sodium [Moles/Vol] 141 mmol/L Invalid Interpretation Code 136 - 145 mEq/L ADM SS Urea nitrogen [Mass/Vol] 18.0 mg/dL Invalid Interpretation Code 8.0 - 22.0 mg/dL ADM SS Urea nitrogen/Creatinine [Mass ratio] 17.5 ratio Invalid Interpretation Code 10.0 - 22.0 ratio ADM SS Basophils (Bld) [#/Vol] 0.0 103/mcL Invalid Interpretation Code 0.0 - 0.3 10^3/mcL Workflow SS Basophils/100 WBC (Bld) 0.4 % Invalid Interpretation Code 0.0 - 2.5 % Workflow SS Eosinophils (Bld) [#/Vol] 0.2 103/mcL Invalid Interpretation Code 0.0 - 0.7 10^3/mcL Workflow SS Eosinophils/100 WBC (Bld) 2.4 % Invalid Interpretation Code 0.0 - 6.0 % AH Workflow SS Erythrocyte distribution width (RBC) [Ratio] 14.7 % Invalid Interpretation Code 11.5 - 15.5 % AH Workflow SS Hematocrit (Bld) [Volume fraction] 41.7 % Invalid Interpretation Code 40.0 - 52.0 % AH Workflow SS Hemoglobin (Bld) [Mass/Vol] 13.8 G/dL Invalid Interpretation Code 13.0 - 17.5 G/dL AH Workflow SS Lymphocytes (Bld) [#/Vol] 1.3 103/mcL Invalid Interpretation Code 0.9 - 4.3 10^3/mcL AH Workflow SS Lymphocytes/100 WBC (Bld) 18.1 % Invalid Interpretation Code 20.0 - 40.0 % AH Workflow SS MCH (RBC) [Entitic mass] 30.2 pg Invalid Interpretation Code 27.0 - 33.0 pg AH Workflow SS MCHC 33.2 G/dL Invalid Interpretation Code 32.0 - 36.0 G/dL AH Workflow SS MCV (RBC) [Entitic vol] 90.9 fL Invalid Interpretation Code 81.0 - 100.0 fL AH Workflow SS Monocytes (Bld) [#/Vol] 0.7 103/mcL Invalid Interpretation Code 0.1 - 1.4 10^3/mcL AH Workflow SS Monocytes/100 WBC (Bld) 9.8 % Invalid Interpretation Code 2.0 - 13.0 % AH Workflow SS Neutrophils (Bld) [#/Vol] 5.0 103/mcL Invalid Interpretation Code 2.3 - 8.1 10^3/mcL AH Workflow SS Neutrophils/100 WBC (Bld) 69.3 % Invalid Interpretation Code 50.0 - 75.0 % AH Workflow SS Platelet mean volume (Bld) [Entitic vol] 9.4 fL Invalid Interpretation Code 6.4 - 10.5 fL AH Workflow SS Platelets (Bld) [#/Vol] 171 103/mcL Invalid Interpretation Code 150 - 450 10^3/mcL AH Workflow SS RBC (Bld) [#/Vol] 4.58 106/mcL Invalid Interpretation Code 4.50 - 6.00 10^6/mcL AH Workflow SS WBC (Bld) [#/Vol] 7.3 103/mcL Invalid Interpretation Code 4.5 - 10.8 10^3/mcL AH Workflow SS Basophils (Bld) [#/Vol] 0.0 103/mcL Invalid Interpretation Code 0.0 - 0.3 10^3/mcL AH Workflow SS Basophils/100 WBC (Bld) 0.8 % Invalid Interpretation Code 0.0 - 2.5 % AH Workflow SS Calcium [Mass/Vol] 9.6 mg/dL Invalid Interpretation Code 8.7 - 10.4 mg/dL ADM SS Chloride [Moles/Vol] 112 mmol/L Invalid Interpretation Code 98 - 110 mEq/L ADM SS CO2 [Moles/Vol] 25 mmol/L Invalid Interpretation Code 22 - 32 mEq/L ADM SS Creatinine [Mass/Vol] 1.10 mg/dL Invalid Interpretation Code 0.60 - 1.40 mg/dL ADM SS Electrolyte Balance 7.0 mEq/L Invalid Interpretation Code 4.0 - 15.0 mEq/L ADM SS Eosinophils (Bld) [#/Vol] 0.1 103/mcL Invalid Interpretation Code 0.0 - 0.7 10^3/mcL Workflow SS Eosinophils/100 WBC (Bld) 2.2 % Invalid Interpretation Code 0.0 - 6.0 % Workflow SS Erythrocyte distribution width (RBC) [Ratio] 14.8 % Invalid Interpretation Code 11.5 - 15.5 % Workflow SS GFR/1.73 sq M.predicted among blacks MDRD (S/P/Bld) [Vol rate/Area] ml/min/1.73sqm Invalid Interpretation Code Chemistry S GFR/1.73 sq M.predicted among non-blacks MDRD (S/P/Bld) [Vol rate/Area] ml/min/1.73sqm Invalid Interpretation Code Chemistry S Glucose [Mass/Vol] 119 mg/dL Invalid Interpretation Code 82 - 115 mg/dL ADM SS Hematocrit (Bld) [Volume fraction] 44.0 % Invalid Interpretation Code 40.0 - 52.0 % Workflow SS Hemoglobin (Bld) [Mass/Vol] 14.4 G/dL Invalid Interpretation Code 13.0 - 17.5 G/dL Workflow SS Lymphocytes (Bld) [#/Vol] 1.3 103/mcL Invalid Interpretation Code 0.9 - 4.3 10^3/mcL Workflow SS Lymphocytes/100 WBC (Bld) 20.2 % Invalid Interpretation Code 20.0 - 40.0 % Workflow SS MCH (RBC) [Entitic mass] 29.9 pg Invalid Interpretation Code 27.0 - 33.0 pg AH Workflow SS MCHC 32.8 G/dL Invalid Interpretation Code 32.0 - 36.0 G/dL AH Workflow SS MCV (RBC) [Entitic vol] 91.0 fL Invalid Interpretation Code 81.0 - 100.0 fL AH Workflow SS Monocytes (Bld) [#/Vol] 0.8 103/mcL Invalid Interpretation Code 0.1 - 1.4 10^3/mcL AH Workflow SS Monocytes/100 WBC (Bld) 13.1 % Invalid Interpretation Code 2.0 - 13.0 % AH Workflow SS Neutrophils (Bld) [#/Vol] 4.0 103/mcL Invalid Interpretation Code 2.3 - 8.1 10^3/mcL AH Workflow SS Neutrophils/100 WBC (Bld) 63.7 % Invalid Interpretation Code 50.0 - 75.0 % AH Workflow SS Platelet mean volume (Bld) [Entitic vol] 9.2 fL Invalid Interpretation Code 6.4 - 10.5 fL AH Workflow SS Platelets (Bld) [#/Vol] 184 103/mcL Invalid Interpretation Code 150 - 450 10^3/mcL AH Workflow SS Potassium [Moles/Vol] 4.3 mmol/L Invalid Interpretation Code 3.5 - 5.0 mEq/L ADM SS RBC (Bld) [#/Vol] 4.84 106/mcL Invalid Interpretation Code 4.50 - 6.00 10^6/mcL AH Workflow SS Sodium [Moles/Vol] 144 mmol/L Invalid Interpretation Code 136 - 145 mEq/L AH ADM SS Urea nitrogen [Mass/Vol] 24.0 mg/dL Invalid Interpretation Code 8.0 - 22.0 mg/dL AH ADM SS Urea nitrogen/Creatinine [Mass ratio] 21.8 ratio Invalid Interpretation Code 10.0 - 22.0 ratio AH ADM SS WBC (Bld) [#/Vol] 6.3 103/mcL Invalid Interpretation Code 4.5 - 10.8 10^3/mcL AH Workflow SS LABORATORYOrdered By: Noel Jones on 10-12-2022 INR Coag (PPP) [Relative time] 0.9 {INR} Invalid Interpretation Code AH Auto Coag SS PT Coag (PPP) [Time] 11.0 s Invalid Interpretation Code 9.0 - 14.9 seconds AH Auto Coag SS LABORATORYOrdered By: Kellen Jaquez on 08-29-2022 Glucose [Mass/Vol] 182 mg/dL Invalid Interpretation Code 82 - 115 mg/dL [facility] Glucose [Mass/Vol] 123 mg/dL Invalid Interpretation Code 82 - 115 mg/dL [facility] LABORATORYOrdered By: Amanda Hawkins on 08-29-2022 aPTT Coag (PPP) [Time] 27.8 s Invalid Interpretation Code 25.0 - 35.0 seconds AH Auto Coag SS Heparin dose (APTT) Heparin IV (08/29/22 7:57 AM) Invalid Interpretation Code AH Auto Coag SS INR Coag (PPP) [Relative time] 1.1 {INR} Invalid Interpretation Code AH Auto Coag SS PT Coag (PPP) [Time] 12.8 s Invalid Interpretation Code 9.0 - 14.9 seconds AH Auto Coag SS LABORATORYOrdered By: SYSTEM SYSTEM on 08-29-2022 Basophils (Bld) [#/Vol] 0.0 103/mcL Invalid Interpretation Code 0.0 - 0.3 10^3/mcL Workflow SS Basophils/100 WBC (Bld) 0.4 % Invalid Interpretation Code 0.0 - 2.5 % Workflow SS Eosinophils (Bld) [#/Vol] 0.1 103/mcL Invalid Interpretation Code 0.0 - 0.7 10^3/mcL Workflow SS Eosinophils/100 WBC (Bld) 1.0 % Invalid Interpretation Code 0.0 - 6.0 % Workflow SS Erythrocyte distribution width (RBC) [Ratio] 14.0 % Invalid Interpretation Code 11.5 - 15.5 % Workflow SS Hematocrit (Bld) [Volume fraction] 41.7 % Invalid Interpretation Code 40.0 - 52.0 % Workflow SS Hemoglobin (Bld) [Mass/Vol] 14.0 G/dL Invalid Interpretation Code 13.0 - 17.5 G/dL Workflow SS Lymphocytes (Bld) [#/Vol] 1.6 103/mcL Invalid Interpretation Code 0.9 - 4.3 10^3/mcL Workflow SS Lymphocytes/100 WBC (Bld) 18.0 % Invalid Interpretation Code 20.0 - 40.0 % Workflow SS MCH (RBC) [Entitic mass] 30.7 pg Invalid Interpretation Code 27.0 - 33.0 pg Workflow SS MCHC 33.7 G/dL Invalid Interpretation Code 32.0 - 36.0 G/dL AH Workflow SS MCV (RBC) [Entitic vol] 91.2 fL Invalid Interpretation Code 81.0 - 100.0 fL AH Workflow SS Monocytes (Bld) [#/Vol] 1.3 103/mcL Invalid Interpretation Code 0.1 - 1.4 10^3/mcL AH Workflow SS Monocytes/100 WBC (Bld) 15.1 % Invalid Interpretation Code 2.0 - 13.0 % AH Workflow SS Neutrophils (Bld) [#/Vol] 5.7 103/mcL Invalid Interpretation Code 2.3 - 8.1 10^3/mcL AH Workflow SS Neutrophils/100 WBC (Bld) 65.5 % Invalid Interpretation Code 50.0 - 75.0 % AH Workflow SS Platelet mean volume (Bld) [Entitic vol] 8.8 fL Invalid Interpretation Code 6.4 - 10.5 fL AH Workflow SS Platelets (Bld) [#/Vol] 163 103/mcL Invalid Interpretation Code 150 - 450 10^3/mcL AH Workflow SS RBC (Bld) [#/Vol] 4.57 106/mcL Invalid Interpretation Code 4.50 - 6.00 10^6/mcL AH Workflow SS WBC (Bld) [#/Vol] 8.7 103/mcL Invalid Interpretation Code 4.5 - 10.8 10^3/mcL AH Workflow SS Albumin BCP dye [Mass/Vol] 3.6 G/dL Invalid Interpretation Code 3.2 - 4.8 G/dL ADM SS Albumin/Globulin [Mass ratio] 1.0 {ratio} Invalid Interpretation Code 0.9 - 1.6 ratio ADM SS ALP [Catalytic activity/Vol] 91 U/L Invalid Interpretation Code 38 - 126 U/L ADM SS ALT No additional P-5'-P [Catalytic activity/Vol] 19 U/L Invalid Interpretation Code 12 - 55 U/L ADM SS AST [Catalytic activity/Vol] 104 U/L Invalid Interpretation Code 8 - 34 U/L AH ADM SS Basophils (Bld) [#/Vol] 0.1 103/mcL Invalid Interpretation Code 0.0 - 0.3 10^3/mcL AH Workflow SS Basophils/100 WBC (Bld) 0.6 % Invalid Interpretation Code 0.0 - 2.5 % AH Workflow SS Bilirubin [Mass/Vol] 1.20 mg/dL Invalid Interpretation Code 0.20 - 1.20 mg/dL ADM SS Calcium [Mass/Vol] 9.3 mg/dL Invalid Interpretation Code 8.7 - 10.4 mg/dL ADM SS Chloride [Moles/Vol] 100 mmol/L Invalid Interpretation Code 98 - 110 mEq/L ADM SS CO2 [Moles/Vol] 28 mmol/L Invalid Interpretation Code 22 - 32 mEq/L ADM SS Creatinine [Mass/Vol] 1.55 mg/dL Invalid Interpretation Code 0.60 - 1.40 mg/dL ADM SS Electrolyte Balance 8.0 mEq/L Invalid Interpretation Code 4.0 - 15.0 mEq/L ADM SS Eosinophils (Bld) [#/Vol] 0.1 103/mcL Invalid Interpretation Code 0.0 - 0.7 10^3/mcL Workflow SS Eosinophils/100 WBC (Bld) 0.9 % Invalid Interpretation Code 0.0 - 6.0 % Workflow SS Erythrocyte distribution width (RBC) [Ratio] 14.2 % Invalid Interpretation Code 11.5 - 15.5 % Workflow SS GFR/1.73 sq M.predicted among blacks MDRD (S/P/Bld) [Vol rate/Area] 53 ml/min/1.73sqm Invalid Interpretation Code ADM SS GFR/1.73 sq M.predicted among non-blacks MDRD (S/P/Bld) [Vol rate/Area] 44 ml/min/1.73sqm Invalid Interpretation Code ADM SS Globulin 3.6 G/dL Invalid Interpretation Code 1.5 - 3.8 G/dL ADM SS Glucose [Mass/Vol] 121 mg/dL Invalid Interpretation Code 82 - 115 mg/dL ADM SS Hematocrit (Bld) [Volume fraction] 42.4 % Invalid Interpretation Code 40.0 - 52.0 % Workflow SS Hemoglobin (Bld) [Mass/Vol] 14.2 G/dL Invalid Interpretation Code 13.0 - 17.5 G/dL Workflow SS Lymphocytes (Bld) [#/Vol] 1.9 103/mcL Invalid Interpretation Code 0.9 - 4.3 10^3/mcL Workflow SS Lymphocytes/100 WBC (Bld) 20.8 % Invalid Interpretation Code 20.0 - 40.0 % Workflow SS Magnesium [Mass/Vol] 2.2 mg/dL Invalid Interpretation Code 1.6 - 2.4 mg/dL ADM SS MCH (RBC) [Entitic mass] 30.2 pg Invalid Interpretation Code 27.0 - 33.0 pg AH Workflow SS MCHC 33.6 G/dL Invalid Interpretation Code 32.0 - 36.0 G/dL AH Workflow SS MCV (RBC) [Entitic vol] 90.0 fL Invalid Interpretation Code 81.0 - 100.0 fL AH Workflow SS Monocytes (Bld) [#/Vol] 1.3 103/mcL Invalid Interpretation Code 0.1 - 1.4 10^3/mcL AH Workflow SS Monocytes/100 WBC (Bld) 14.2 % Invalid Interpretation Code 2.0 - 13.0 % AH Workflow SS Neutrophils (Bld) [#/Vol] 6.0 103/mcL Invalid Interpretation Code 2.3 - 8.1 10^3/mcL AH Workflow SS Neutrophils/100 WBC (Bld) 63.5 % Invalid Interpretation Code 50.0 - 75.0 % AH Workflow SS Platelet mean volume (Bld) [Entitic vol] 9.1 fL Invalid Interpretation Code 6.4 - 10.5 fL Workflow SS Platelets (Bld) [#/Vol] 178 103/mcL Invalid Interpretation Code 150 - 450 10^3/mcL AH Workflow SS Potassium [Moles/Vol] 3.9 mmol/L Invalid Interpretation Code 3.5 - 5.0 mEq/L ADM SS Protein [Mass/Vol] 7.2 G/dL Invalid Interpretation Code 5.7 - 8.2 G/dL ADM SS RBC (Bld) [#/Vol] 4.71 106/mcL Invalid Interpretation Code 4.50 - 6.00 10^6/mcL AH Workflow SS Sodium [Moles/Vol] 136 mmol/L Invalid Interpretation Code 136 - 145 mEq/L ADM SS Urea nitrogen [Mass/Vol] 20.0 mg/dL Invalid Interpretation Code 8.0 - 22.0 mg/dL ADM SS Urea nitrogen/Creatinine [Mass ratio] 12.9 ratio Invalid Interpretation Code 10.0 - 22.0 ratio ADM SS WBC (Bld) [#/Vol] 9.4 103/mcL Invalid Interpretation Code 4.5 - 10.8 10^3/mcL Workflow SS LABORATORYOrdered By: Luis Alfredo Le on 08-28-2022 Blood Glucose Testing Reason Routine (08/28/22 9:47 PM) [facility] Glucose [Mass/Vol] 114 mg/dL Invalid Interpretation Code 82 - 115 mg/dL [facility] LABORATORYOrdered By: Janel Lee on 08-28-2022 Blood Glucose Testing Reason Routine (08/28/22 4:39 PM) [facility] Blood Glucose Testing Reason Routine (08/28/22 11:26 AM) [facility] LABORATORYOrdered By: SYSTEM SYSTEM on 08-28-2022 Basophils (Bld) [#/Vol] 0.0 103/mcL Invalid Interpretation Code 0.0 - 0.3 10^3/mcL Workflow SS Basophils/100 WBC (Bld) 0.2 % Invalid Interpretation Code 0.0 - 2.5 % Workflow SS Calcium [Mass/Vol] 9.8 mg/dL Invalid Interpretation Code 8.7 - 10.4 mg/dL ADM SS Chloride [Moles/Vol] 100 mmol/L Invalid Interpretation Code 98 - 110 mEq/L ADM SS CO2 [Moles/Vol] 28 mmol/L Invalid Interpretation Code 22 - 32 mEq/L ADM SS Creatinine [Mass/Vol] 1.23 mg/dL Invalid Interpretation Code 0.60 - 1.40 mg/dL ADM SS Electrolyte Balance 8.0 mEq/L Invalid Interpretation Code 4.0 - 15.0 mEq/L ADM SS Eosinophils (Bld) [#/Vol] 0.0 103/mcL Invalid Interpretation Code 0.0 - 0.7 10^3/mcL Workflow SS Eosinophils/100 WBC (Bld) 0.1 % Invalid Interpretation Code 0.0 - 6.0 % Workflow SS Erythrocyte distribution width (RBC) [Ratio] 14.3 % Invalid Interpretation Code 11.5 - 15.5 % AH Workflow SS GFR/1.73 sq M.predicted among blacks MDRD (S/P/Bld) [Vol rate/Area] ml/min/1.73sqm Invalid Interpretation Code AH ADM SS GFR/1.73 sq M.predicted among non-blacks MDRD (S/P/Bld) [Vol rate/Area] 57 ml/min/1.73sqm Invalid Interpretation Code ADM SS Glucose [Mass/Vol] 147 mg/dL Invalid Interpretation Code 82 - 115 mg/dL ADM SS HbA1c (Bld) [Mass fraction] 6.6 % Invalid Interpretation Code 4.0 - 6.0 % Auto Chem SS Hematocrit (Bld) [Volume fraction] 43.9 % Invalid Interpretation Code 40.0 - 52.0 % Workflow SS Hemoglobin (Bld) [Mass/Vol] 14.5 G/dL Invalid Interpretation Code 13.0 - 17.5 G/dL AH Workflow SS Lymphocytes (Bld) [#/Vol] 1.3 103/mcL Invalid Interpretation Code 0.9 - 4.3 10^3/mcL Workflow SS Lymphocytes/100 WBC (Bld) 12.0 % Invalid Interpretation Code 20.0 - 40.0 % Workflow SS Magnesium [Mass/Vol] 2.0 mg/dL Invalid Interpretation Code 1.6 - 2.4 mg/dL ADM SS MCH (RBC) [Entitic mass] 29.8 pg Invalid Interpretation Code 27.0 - 33.0 pg Workflow SS MCHC 33.0 G/dL Invalid Interpretation Code 32.0 - 36.0 G/dL Workflow SS MCV (RBC) [Entitic vol] 90.2 fL Invalid Interpretation Code 81.0 - 100.0 fL Workflow SS Monocytes (Bld) [#/Vol] 1.7 103/mcL Invalid Interpretation Code 0.1 - 1.4 10^3/mcL Workflow SS Monocytes/100 WBC (Bld) 15.0 % Invalid Interpretation Code 2.0 - 13.0 % Workflow SS Neutrophils (Bld) [#/Vol] 8.0 103/mcL Invalid Interpretation Code 2.3 - 8.1 10^3/mcL Workflow SS Neutrophils/100 WBC (Bld) 72.7 % Invalid Interpretation Code 50.0 - 75.0 % Workflow SS Platelet mean volume (Bld) [Entitic vol] 9.2 fL Invalid Interpretation Code 6.4 - 10.5 fL Workflow SS Platelets (Bld) [#/Vol] 191 103/mcL Invalid Interpretation Code 150 - 450 10^3/mcL AH Workflow SS Potassium [Moles/Vol] 4.3 mmol/L Invalid Interpretation Code 3.5 - 5.0 mEq/L ADM SS Comment on above: Result Comment: Spec imen slightly hemolyzed. RBC (Bld) [#/Vol] 4.87 106/mcL Invalid Interpretation Code 4.50 - 6.00 10^6/mcL AH Workflow SS Sodium [Moles/Vol] 136 mmol/L Invalid Interpretation Code 136 - 145 mEq/L AH ADM SS Urea nitrogen [Mass/Vol] 15.0 mg/dL Invalid Interpretation Code 8.0 - 22.0 mg/dL AH ADM SS Urea nitrogen/Creatinine [Mass ratio] 12.2 ratio Invalid Interpretation Code 10.0 - 22.0 ratio AH ADM SS WBC (Bld) [#/Vol] 11.0 103/mcL Invalid Interpretation Code 4.5 - 10.8 10^3/mcL AH Workflow SS LABORATORYOrdered By: Anjana mix on 08-28-2022 Cholesterol [Mass/Vol] 151 mg/dL Invalid Interpretation Code 50 - 199 mg/dL ADM SS Cholesterol in HDL [Mass/Vol] 37 mg/dL Invalid Interpretation Code 40 - 59 mg/dL ADM SS Cholesterol in LDL [Mass/Vol] 96 mg/dL Invalid Interpretation Code 0 - 129 mg/dL ADM SS Triglyceride [Mass/Vol] 91 mg/dL Invalid Interpretation Code 3 - 149 mg/dL AH ADM SS LABORATORYOrdered By: SYSTEM SYSTEM on 08-27-2022 Albumin BCP dye [Mass/Vol] 3.8 G/dL Invalid Interpretation Code 3.2 - 4.8 G/dL ADM SS Albumin/Globulin [Mass ratio] 1.0 {ratio} Invalid Interpretation Code 0.9 - 1.6 ratio ADM SS ALP [Catalytic activity/Vol] 117 U/L Invalid Interpretation Code 38 - 126 U/L ADM SS ALT No additional P-5'-P [Catalytic activity/Vol] 32 U/L Invalid Interpretation Code 12 - 55 U/L AH ADM SS AST [Catalytic activity/Vol] 220 U/L Invalid Interpretation Code 8 - 34 U/L ADM SS Bilirubin [Mass/Vol] 0.80 mg/dL Invalid Interpretation Code 0.20 - 1.20 mg/dL AH ADM SS Calcium [Mass/Vol] 9.7 mg/dL Invalid Interpretation Code 8.7 - 10.4 mg/dL AH ADM SS Chloride [Moles/Vol] 102 mmol/L Invalid Interpretation Code 98 - 110 mEq/L ADM SS CO2 [Moles/Vol] 25 mmol/L Invalid Interpretation Code 22 - 32 mEq/L AH ADM SS Creatinine [Mass/Vol] 1.13 mg/dL Invalid Interpretation Code 0.60 - 1.40 mg/dL AH ADM SS Electrolyte Balance 12.0 mEq/L Invalid Interpretation Code 4.0 - 15.0 mEq/L AH ADM SS GFR/1.73 sq M.predicted among blacks MDRD (S/P/Bld) [Vol rate/Area] ml/min/1.73sqm Invalid Interpretation Code AH ADM SS GFR/1.73 sq M.predicted among non-blacks MDRD (S/P/Bld) [Vol rate/Area] ml/min/1.73sqm Invalid Interpretation Code ADM SS Globulin 3.7 G/dL Invalid Interpretation Code 1.5 - 3.8 G/dL AH ADM SS Glucose [Mass/Vol] 134 mg/dL Invalid Interpretation Code 82 - 115 mg/dL ADM SS Magnesium [Mass/Vol] 2.1 mg/dL Invalid Interpretation Code 1.6 - 2.4 mg/dL ADM SS Phosphate [Mass/Vol] 3.1 mg/dL Invalid Interpretation Code 2.4 - 5.1 mg/dL ADM SS Potassium [Moles/Vol] 4.5 mmol/L Invalid Interpretation Code 3.5 - 5.0 mEq/L AH ADM SS Comment on above: Result Comment: Spec imen slightly hemolyzed. Protein [Mass/Vol] 7.5 G/dL Invalid Interpretation Code 5.7 - 8.2 G/dL ADM SS Sodium [Moles/Vol] 139 mmol/L Invalid Interpretation Code 136 - 145 mEq/L ADM SS Troponin I.cardiac DL <= 0.01 ng/mL [Mass/Vol] 12744.84 ng/L Invalid Interpretation Code 0.00 - 54.00 ng/L ADM SS TSH Qn 2.670 mIU/mL Invalid Interpretation Code 0.550 - 4.780 mIU/mL ADM SS Urea nitrogen [Mass/Vol] 18.0 mg/dL Invalid Interpretation Code 8.0 - 22.0 mg/dL ADM SS Urea nitrogen/Creatinine [Mass ratio] 15.9 ratio Invalid Interpretation Code 10.0 - 22.0 ratio ADM SS Calcium [Mass/Vol] 9.8 mg/dL Invalid Interpretation Code 8.4 - 10.2 mg/dL AO ADM SS Chloride [Moles/Vol] 101 mmol/L Invalid Interpretation Code 98 - 107 mmol/L AO ADM SS CO2 [Moles/Vol] 25 mmol/L Invalid Interpretation Code 23 - 31 mmol/L AO ADM SS Creatinine [Mass/Vol] 1.46 mg/dL Invalid Interpretation Code 0.70 - 1.30 mg/dL AO ADM SS Electrolyte Balance 13.0 mEq/L Invalid Interpretation Code 4.0 - 15.0 mEq/L AO ADM SS GFR 57 ml/min/1.73sqm Invalid Interpretation Code AO Chemistry S GFR Non- 47 ml/min/1.73sqm Invalid Interpretation Code AO Chemistry S Glucose [Mass/Vol] 205 mg/dL Invalid Interpretation Code 83 - 110 mg/dL AO ADM SS Potassium [Moles/Vol] 4.2 mmol/L Invalid Interpretation Code 3.5 - 5.1 mmol/L AO ADM SS Sodium [Moles/Vol] 139 mmol/L Invalid Interpretation Code 136 - 145 mmol/L AO ADM SS Troponin I.cardiac DL <= 0.01 ng/mL [Mass/Vol] 57461.7 ng/L Invalid Interpretation Code 0.0 - 76.2 ng/L AO ADM SS Urea nitrogen [Mass/Vol] 19 mg/dL Invalid Interpretation Code 7 - 18 mg/dL AO ADM SS Urea nitrogen/Creatinine [Mass ratio] 13 ratio Invalid Interpretation Code 7 - 27 ratio AO ADM SS LABORATORYOrdered By: Deidra Parker on 08-27-2022 aPTT Coag (PPP) [Time] 36.3 s Invalid Interpretation Code 25.0 - 35.0 seconds Auto Coag SS Calcium.ionized (Bld) [Mass/Vol] 0.98 mmol/L Invalid Interpretation Code 1.12 - 1.32 mmol/L Auto Chem SS Heparin dose (APTT) Heparin IV (08/27/22 4:47 PM) Invalid Interpretation Code Auto Coag SS LABORATORYOrdered By: Teresita Nj on 08-27-2022 INR Coag (PPP) [Relative time] 1.0 {INR} Invalid Interpretation Code Auto Coag SS PT Coag (PPP) [Time] 12.3 s Invalid Interpretation Code 9.0 - 14.9 seconds Auto Coag SS LABORATORYOrdered By: Joshua Shah on 08-27-2022 Natriuretic peptide.B prohormone N-Terminal [Mass/Vol] 2209 pg/mL Invalid Interpretation Code 0 - 1800 pg/mL AH Auto Chem SS LABORATORYOrdered By: Carmita Barbosa on 08-27-2022 SARS-CoV-2 (COVID-19) RNA ZAINA+probe Ql (Resp) Negative results do not preclude SARS-CoV-2 infection and should not be used as the sole basis for patient management decisions. Negative results must be combined with clinical observations, patient history, and epidemiological information.There is a risk of false negative values resulting from improperly collected, transported, or handled specimens.There is a risk of false negative values due to the presence of sequence variants in the pathogen targets of the assay, procedural errors, amplification inhibitors in specimens, or inadequate numbers of organisms for amplification.HERN[facility]N SARS-CoV-2 Assay is a Real-Time reverse-transcriptase polymerase chain reaction (RT-PCR) based qualitative in vitro diagnostic test intended for the qualitative detection of nucleic acid from the SARS-CoV-2 in nasopharyngeal swab specimens collected from individuals suspected of COVID-19 by their healthcare provider. Testing is limited to laboratories certified under the Clinical Laboratory Improvement Amendments of 1988 (CLIA), 42 U.S.C. 263a, to perform moderate and high complexity tests. Invalid Interpretation Code AO Auto Urine SS aPTT Coag (Bld) [Time] 25.9 s Invalid Interpretation Code 24.1 - 34.9 seconds AO Coag SS Heparin dose (APTT) None Invalid Interpretation Code AO Coag SS INR Coag (PPP) [Relative time] 1.2 {INR} Invalid Interpretation Code 0.9 - 1.2 ratio AO Coag SS PT Coag (PPP) [Time] 13.0 s Invalid Interpretation Code 9.7 - 13.9 seconds AO Coag SS Basophil, Absolute 0.0 103/mcL Invalid Interpretation Code 0.0 - 0.2 10^3/mcL AO Workflow SS Basophils/100 WBC (Bld) 0.3 % Invalid Interpretation Code 0.0 - 2.5 % AO Workflow SS Eosinophil, Absolute 0.0 103/mcL Invalid Interpretation Code 0.0 - 0.4 10^3/mcL AO Workflow SS Eosinophils/100 WBC (Bld) 0.3 % Invalid Interpretation Code 0.0 - 7.0 % AO Workflow SS Erythrocyte distribution width (RBC) [Ratio] 14.4 % Invalid Interpretation Code 11.5 - 14.5 % AO Workflow SS Hematocrit (Bld) [Volume fraction] 46.4 % Invalid Interpretation Code 42.0 - 52.0 % AO Workflow SS Hemoglobin (Bld) [Mass/Vol] 15.7 G/dL Invalid Interpretation Code 14.0 - 18.0 G/dL AO Workflow SS Lymphocyte, Absolute 1.2 103/mcL Invalid Interpretation Code 0.8 - 3.9 10^3/mcL AO Workflow SS Lymphocytes/100 WBC (Bld) 11.1 % Invalid Interpretation Code 10.0 - 50.0 % AO Workflow SS MCH (RBC) [Entitic mass] 30.3 pg Invalid Interpretation Code 27.0 - 31.2 pg AO Workflow SS MCHC 33.8 G/dL Invalid Interpretation Code 31.8 - 35.4 G/dL AO Workflow SS MCV (RBC) [Entitic vol] 89.7 fL Invalid Interpretation Code 80.0 - 94.0 fL AO Workflow SS Monocyte distribution width Auto (Bld) [Entitic vol] 17.85 Invalid Interpretation Code 0.00 - 20.00 AO Workflow SS Comment on above: Result Comment: For ED adult patients suspected of sepsis, MDW<=20.0 does not rule out sepsis or risk of sepsis Monocyte, Absolute 0.9 103/mcL Invalid Interpretation Code 0.2 - 1.0 10^3/mcL AO Workflow SS Monocytes/100 WBC (Bld) 8.7 % Invalid Interpretation Code 1.7 - 13.0 % AO Workflow SS Neutrophil, Absolute 8.5 103/mcL Invalid Interpretation Code 2.9 - 6.2 10^3/mcL AO Workflow SS Neutrophils/100 WBC (Bld) 79.6 % Invalid Interpretation Code 37.0 - 80.0 % AO Workflow SS Platelet mean volume (Bld) [Entitic vol] 9.0 fL Invalid Interpretation Code 7.4 - 10.4 fL AO Workflow SS Platelets (Bld) [#/Vol] 219 103/mcL Invalid Interpretation Code 130 - 400 10^3/mcL AO Workflow SS RBC (Bld) [#/Vol] 5.17 106/mcL Invalid Interpretation Code 4.04 - 6.13 10^6/mcL AO Workflow SS WBC (Bld) [#/Vol] 10.7 103/mcL Invalid Interpretation Code 4.6 - 10.8 10^3/mcL AO Workflow SS LABORATORYOrdered By: Lynn Linares on 05-17-2022 Albumin BCP dye [Mass/Vol] 3.9 G/dL Invalid Interpretation Code 3.4 - 4.8 G/dL AO ADM SS Albumin/Globulin [Mass ratio] 1.1 {ratio} Invalid Interpretation Code 1.1 - 2.5 ratio AO ADM SS ALP [Catalytic activity/Vol] 110 U/L Invalid Interpretation Code 40 - 135 U/L AO ADM SS ALT With P-5'-P [Catalytic activity/Vol] 30 U/L Invalid Interpretation Code 16 - 63 U/L AO ADM SS AST With P-5'-P [Catalytic activity/Vol] 36 U/L Invalid Interpretation Code 10 - 40 U/L AO ADM SS Bilirubin [Mass/Vol] 0.8 mg/dL Invalid Interpretation Code 0.2 - 1.0 mg/dL AO ADM SS Calcium [Mass/Vol] 8.9 mg/dL Invalid Interpretation Code 8.4 - 10.2 mg/dL AO ADM SS Chloride [Moles/Vol] 104 mmol/L Invalid Interpretation Code 98 - 107 mmol/L AO ADM SS Cholesterol [Mass/Vol] 189 mg/dL Invalid Interpretation Code 0 - 200 mg/dL AO ADM SS Cholesterol in HDL [Mass/Vol] 43 mg/dL Invalid Interpretation Code 40 - 60 mg/dL AO ADM SS Cholesterol in LDL [Mass/Vol] 120 mg/dL Invalid Interpretation Code 0 - 130 mg/dL AO ADM SS CO2 [Moles/Vol] 27 mmol/L Invalid Interpretation Code 23 - 31 mmol/L AO ADM SS Creatinine [Mass/Vol] 1.14 mg/dL Invalid Interpretation Code 0.70 - 1.30 mg/dL AO ADM SS Electrolyte Balance 9.0 mEq/L Invalid Interpretation Code 4.0 - 15.0 mEq/L AO ADM SS Globulin 3.6 G/dL Invalid Interpretation Code AO ADM SS Glucose [Mass/Vol] 112 mg/dL Invalid Interpretation Code 83 - 110 mg/dL AO ADM SS Potassium [Moles/Vol] 4.0 mmol/L Invalid Interpretation Code 3.5 - 5.1 mmol/L AO ADM SS Prostate specific Ag [Mass/Vol] 0.75 ng/mL Invalid Interpretation Code 0.00 - 4.00 ng/mL AO ADM SS Protein [Mass/Vol] 7.5 G/dL Invalid Interpretation Code 6.4 - 8.2 G/dL AO ADM SS Sodium [Moles/Vol] 140 mmol/L Invalid Interpretation Code 136 - 145 mmol/L AO ADM SS Triglyceride [Mass/Vol] 131 mg/dL Invalid Interpretation Code 0 - 150 mg/dL AO ADM SS Urea nitrogen [Mass/Vol] 18 mg/dL Invalid Interpretation Code 7 - 18 mg/dL AO ADM SS Urea nitrogen/Creatinine [Mass ratio] 16 ratio Invalid Interpretation Code 7 - 27 ratio AO ADM SS LABORATORYOrdered By: SYSTEM SYSTEM on 05-17-2022 GFR 76 ml/min/1.73sqm Invalid Interpretation Code AO Chemistry S GFR Non- 63 ml/min/1.73sqm Invalid Interpretation Code AO Chemistry S Clinical Summary: HMSPatient IDon 03-18-2019 OOP [facility] Work Phone: Office Visit: Postop - subse quent visit, Rm: 10on 03-18-2019 NEGATED: Highlighted rowxray history of the [facility] [place] [facility] Work Phone: CHEST PA/AP AND LATERALon CHEST PA/AP AND LATERAL CHEST PA/AP & LATERALOrdering Physician: Hope Edmonds CNP [id number]/20/2016 10:25 AMCHEST PA AND LATERAL:Clinical Statement: Cough for several daysComparison: NoneFINDINGS:Multiple sternotomy wires and surgical clips are identified.Cardiac silhouette is within normal limits.No focal consolidation, pneumothorax or pleural effusion. Pulmonaryvasculature is within normal limits. Minimal left basilar scarringversus atelectasis is identified.Degenerative changes of the spine and right AC joint are identified.Patient is status post right shoulder arthroplasty.IMPRESSION :1. No acute cardiopulmonary disease.2. Minimal left basilar atelectasis versus scarring. A copy of this report was sent to the ED at the time of dictation.Dictated by Operating Engineer Apprentice: Vinicio Ontiveros by Radiologist: Aracelis Sequeira MD---- Electronic Signature on File ----Signed By: Aracelis Sequeira [email or web address] tated: 07/21/2017 11:54 AMSigned: 07/21/2017 12:06 PM Reported By: ARACELIS SEQUEIRA M.D. Signed By: ARACELIS SEQUEIRA M.D. [facility] RE[facility] This is a preliminary report only, as the practitioner review and authentication has not occurred. [facility] DATE OF SERVICE: 07/21/2017He is a 71-year-old male presenting [facility] with complaints of cough andcongestion.HISTORY OF PRESENT ILLNESS: This is a 71-[facility], chest congestion with yellow sputum when coughing. Denies anysore throat, ear pain or fevers. He is having a lot of fatigue. He has no historyof tobacco use or asthma. He did have pneumonia 6 years ago. He did not have apneumonia vaccine this week. He has not done any self-treatment measures. He doeshave some audible wheezing.ALLERGIES: None.MEDICATIONS:1. Amlodipine.2. Losartan.3. Metoprolol.PAST MEDICAL HISTORY: Heart disease. He had a bypass in 2009. He does have highblood pressure.SOCIAL HISTORY: Denies any tobacco or alcohol use.FAMILY HISTORY: There is no family history indicated on the past medical history.REVIEW OF SYSTEMS:Constitutional: He denies any anorexia, anxiety. Denies any body aches, chills orfevers. Does report that he is in pretty good health. Denies any unexplained weightloss. States that his general health is good. Denies any diplopia, recent changesin visual acuity or blurred vision. He denies any chest pain, arrhythmias, cyanosis,DVT. He does report some dyspnea on exertion and pain with deep inspiration. Hedenies any reports of dizziness or presyncopal episodes, night sweats, jaw pain,palpitations, tachycardia.Respiratory : He denies any history of asthma. Does report the cough for 2 weeks.Denies any pleuritic pain. He does have some sputum production and the audiblewheezing.PHYSICA L EXAMINATION:Vital Signs: 150/77, 82, 18, 98, 95% on room air. Reports that he has no pain.General: He is in no acute distress. Nontoxic appearing. He looks well.Skin: Mona, warm, dry and intact.HEENT: Mucous membranes are moist. Pupils are equal, reactive, responsive andaccommodating to light. Extraocular movements intact. Bilateral TMs are intact withno erythema, edema or bulging membranes. Nasal mucosa is pink and moist. Septum ismidline. Posterior pharynx is without erythema or edema. No oral lesions noted.Neck: Supple and symmetric. There is no lymphadenopathy. The trachea is midline.There is no JVD.Lungs: Scattered rhonchi throughout all lung cardenas that do not clear with cough. [facility] PATIENT NAME: AURE PURDY [id number] [facility] [address] Yousif MEDICAL REC #: [id number], [place] [address] [facility] REPORT STATCARE PHYSICIANHis respiratory rate is 18, pulse oximetry is 95%. There were no rales noted. Hedid have audible wheezing and scattered wheezing throughout all lung cardenas.Heart: Regular. Rhythm is regular. No murmurs, clicks or gallops noted.TESTS: I did do a chest x-ray, which I interpreted had some left basilaratelectasis.IMPR ESSION:1. Left basilar atelectasis.2. Bronchitis.PLAN: I did 2 aerosol treatments, which had some improvement and brought his pulseoximetry up from 95 to 96. He did report some relief after the aerosol treatments.He is to rest, increase fluids, Tylenol for pain. I did Escribe a Z-Mitchell, albuteroland Bromfed over to his pharmacy to take as directed. He is to follow up on Sundayif he is no better and if his symptoms get worse, he just needs to go to theemergency department. Patient understood the plan and agreed with the plan. Hope Ingram CNPS/[id number]: 07/21/2017 14:05DT: 07/22/2017 14:27SSI File#: [id number] #: [id number] [facility] PATIENT NAME: AURE PURDY [id number] [facility] [address] Yousif MEDICAL REC #: [id number], [place] [address] [facility] REPORT STATCARE PHYSICIAN Normal [facility] [place] Vital Signs Date Time Vital Sign Value Performing Clinician Facility 01-10-2024 23:00-0400 Diastolic Blood Pressure Non-Invasive 77 mm[Hg] NIDAL CHOUJAA DO [facility] 01-10-2024 23:00-0400 Heart rate 90 /min NIDAL CHOUJAA DO [facility] 01-10-2024 23:00-0400 Systolic Blood Pressure Non-Invasive 170 mm[Hg] NIDAL CHOUJAA DO [facility] 01-10-2024 21:10-0400 Diastolic Blood Pressure Non-Invasive 80 mm[Hg] NIDAL CHOUJAA DO [facility] 01-10-2024 21:10-0400 Heart rate 87 /min NIDAL CHOUJAA DO [facility] 01-10-2024 21:10-0400 Respiratory rate 18 /min NIDAL CHOUJAA DO [facility] 01-10-2024 21:10-0400 Systolic Blood Pressure Non-Invasive 168 mm[Hg] NIDAL CHOUJAA DO [facility] 01-10-2024 19:09-0400 Body temperature 98.24 [degF] MADELYNAL CHOUJAA DO [facility] 01-10-2024 19:09-0400 Diastolic Blood Pressure Non-Invasive 78 mm[Hg] [facility] 01-10-2024 19:09-0400 Heart rate 92 /min [facility] ROSANNEUHEIDEA DO [facility] 01-10-2024 19:09-0400 Systolic Blood Pressure Non-Invasive 174 mm[Hg] [facility] GetMaidMoiseJAA DO [facility] 05-31-2023 13:18-0400 Diastolic Blood Pressure Non-Invasive 61 1 KATELYN ADKINSMilitary [employer]ters [facility] 05-31-2023 13:18-0400 Heart rate 75 /min KATELYN Hashable [facility] 05-31-2023 13:18-0400 Respiratory rate 20 /min KATELYN Hashable [facility] 05-31-2023 13:18-0400 Systolic Blood Pressure Non-Invasive 149 1 KATELYN [employer] [facility] 05-31-2023 11:15-0400 Diastolic Blood Pressure Non-Invasive 60 1 KATELYN [employer] [facility] 05-31-2023 11:15-0400 Heart rate 74 /min KATELYN [employer] [facility] 05-31-2023 11:15-0400 Respiratory rate 17 /min KATELYN ADKINSMilitary [employer] [facility] 05-31-2023 11:15-0400 Systolic Blood Pressure Non-Invasive 130 1 KATELYN ADKINSEverplaces [facility] 05-31-2023 09:41-0400 Blood Pressure Cuff Size KATELYN ADKINSEverplaces [facility] 05-31-2023 09:41-0400 Blood Pressure Location KATELYN Hashable [facility] 05-31-2023 09:41-0400 Blood Pressure Method KATELYN Hashable [facility] 05-31-2023 09:41-0400 Body temperature 98.24 [degF] KATELYN Hashable [facility] 05-31-2023 09:41-0400 Body weight 113.1 kg KATELYN Hashable [facility] 05-31-2023 09:41-0400 Diastolic Blood Pressure Non-Invasive 67 1 KATELYN Hashable [facility] 05-31-2023 09:41-0400 Heart rate 87 /min KATELYN Hashable [facility] 05-31-2023 09:41-0400 Respiratory rate 18 /min KATELYN Hashable [facility] 05-31-2023 09:41-0400 Systolic Blood Pressure Non-Invasive 157 1 KATELYN Hashable [facility] 10-13-2022 15:17-0500 Heart rate 86 /min RAFFAELE CALDERON MD [facility] 10-13-2022 15:05-0500 Heart rate 77 /min RAFFAELE CALDERON MD [facility] 10-13-2022 14:31-0500 Blood Pressure Cuff Size RAFFAELE CALDERON MD [facility] 10-13-2022 14:31-0500 Blood Pressure Location RAFFAELE CALDERON MD [facility] 10-13-2022 14:31-0500 Blood Pressure Method RAFFAELE CALDERON MD [address] [place] [address] 10-13-2022 14:31-0500 Body temperature 97.52 [degF] RAFFAELE CALDERON MD [address] [place] [address] 10-13-2022 14:31-0500 Diastolic Blood Pressure Non-Invasive 66 1 RAFFAELE CALDERON MD [address] [place] [address] 10-13-2022 14:31-0500 Heart rate 76 /min RAFFAELE CALDERON MD [address] [place] [address] 10-13-2022 14:31-0500 Reason For Taking VItal Signs RAFFAELE CALDERON MD [address] [place] [address] 10-13-2022 14:31-0500 Respiratory rate 18 /min RAFFAELE CALDERON MD [address] [place] [address] 10-13-2022 14:31-0500 Systolic Blood Pressure Non-Invasive 128 1 RAFFAELE CALDERON MD [address] [place] [address] 10-13-2022 11:09-0500 Body temperature 97.7 [degF] RAFFAELE CALDERON MD [address] [place] [address] 10-13-2022 11:09-0500 Reason For Taking VItal Signs RAFFAELE CALDERON MD [address] [place] [address] 10-13-2022 11:09-0500 Respiratory rate 18 /min RAFFAELE CALDERON MD [address] [place] [address] 10-13-2022 10:43-0500 Blood Pressure Cuff Size RAFFAELE CALDERON MD [address] [place] [address] 10-13-2022 10:43-0500 Blood Pressure Location RAFFAELE CALDERON MD [address] [place] [address] 10-13-2022 10:43-0500 Blood Pressure Method RAFFAELE CALDERON MD [address] [place] [address] 10-13-2022 10:43-0500 Diastolic Blood Pressure Non-Invasive 68 1 RAFFAELE CALDERON MD [address] [place] [address] 10-13-2022 10:43-0500 Heart rate 83 /min RAFFAELE CALDERON MD [address] [place] [address] 10-13-2022 10:43-0500 Systolic Blood Pressure Non-Invasive 138 1 RAFFAELE CALDERON MD [address] [place] [address] 10-13-2022 07:19-0500 Blood Pressure Location RAFFAELE CALDERON MD [address] [place] [address] 10-13-2022 07:19-0500 Blood Pressure Method RAFFAELE CALDERON MD [address] [place] [address] 10-13-2022 07:19-0500 Body temperature 98.06 [degF] RAFFAELE CALDERON MD [address] [place] [address] 10-13-2022 07:19-0500 Diastolic Blood Pressure Non-Invasive 92 1 RAFFAELE CALDERON MD [address] [place] [address] 10-13-2022 07:19-0500 Reason For Taking VItal Signs RAFFAELE CALDERON MD [address] [place] [address] 10-13-2022 07:19-0500 Respiratory rate 18 /min RAFFAELE CALDERON MD [address] [place] [address] 10-13-2022 07:19-0500 Systolic Blood Pressure Non-Invasive 160 1 RAFFAELE CALDERON MD [address] [place] [address] 10-13-2022 01:15-0500 Blood Pressure Cuff Size RAFFAELE CALDERON MD [address] [place] [address] 10-12-2022 21:14-0500 Body temperature 97.52 [degF] RAFFAELE CALDERON MD [address] [place] [address] 10-12-2022 18:09-0500 Mean blood pressure 108 mm[Hg] RAFFAELE CALDERON MD [address] [place] [address] 10-12-2022 18:06-0500 Mean blood pressure 104 mm[Hg] RAFFAELE CALDERON MD [address] [place] [address] 10-12-2022 18:03-0500 Mean blood pressure 102 mm[Hg] RAFFAELE CALDERON MD [address] [place] [address] 10-12-2022 11:00-0500 Diastolic blood pressure 82 mm[Hg] RAFFAELE CALDERON MD [address] [place] [address] 10-12-2022 11:00-0500 Mean blood pressure 121 mm[Hg] RAFFAELE CALDERON MD [address] [place] [address] 10-12-2022 11:00-0500 Systolic blood pressure 192 mm[Hg] RAFFAELE CALDERON MD [address] [place] [address] 10-12-2022 10:45-0500 Diastolic blood pressure 79 mm[Hg] RAFFAELE CALDERON MD [address] [place] [address] 10-12-2022 10:45-0500 Mean blood pressure 118 mm[Hg] RAFFAELE CALDERON MD [address] [place] [address] 10-12-2022 10:45-0500 Systolic blood pressure 186 mm[Hg] RAFFAELE CALDERON MD [address] [place] [address] 10-12-2022 10:25-0500 Diastolic blood pressure 87 mm[Hg] RAFFAELE CALDREON MD [address] [place] [address] 10-12-2022 10:25-0500 Mean blood pressure 125 mm[Hg] RAFFAELE CALDERON MD [address] [place] [address] 10-12-2022 10:25-0500 Systolic blood pressure 194 mm[Hg] RAFFAELE CALDERON MD [address] [place] [address] 10-12-2022 09:42-0500 Body height 167.6 cm RAFFAELE ACLDERON MD [address] [place] [address] 10-12-2022 09:42-0500 Body weight 112 kg RAFFAELE CALDERON MD [address] [place] [address] 10-12-2022 09:42-0500 Body weight 39.87 kg/m2 RAFFAELE CALDERON MD [address] [place] [address] 10-12-2022 06:40-0500 Body height 167.6 cm RAFFAELE CALDERON MD [address] [place] [address] 10-12-2022 06:40-0500 Body weight 112 kg RAFFAELE CALDERON MD [address] [place] [address] 10-12-2022 06:40-0500 Heart rate 67 /min RAFFAELE CALDERON MD [address] [place] [address] 08-29-2022 11:09-05[address] Blood Pressure Cuff Size DR JASEN EARLY MD [address] [place] [address] 08-29-2022 11:09-[address] JASEN EARLY MD [address] [place] [address] 08-29-2022 11:09-[address] JASEN EARLY MD [address] [place] [address] 08-29-2022 11:09-0500 Body temperature 98.42 [degF] DR JASEN EARLY MD [address] [place] [address] 08-29-2022 11:09-0500 Diastolic Blood Pressure Non-Invasive [address] JASEN EARLY MD [address] [place] [address] 08-29-2022 11:09-0500 Heart rate 74 /min DR JASEN EARLY MD [address] [place] [address] 08-29-2022 11:09-0500 Reason For Taking VItal Signs DR JASEN EARLY MD [address] [place] [address] 08-29-2022 11:09-0500 Respiratory rate 18 /min DR JASEN EARLY MD [address] 08-29-2022 11:09-0500 Systolic Blood Pressure Non-Invasive [address] JASEN EARLY MD [address] [place] [address] 08-29-2022 08:48-0500 Heart rate 73 /min DR JASEN EARLY MD [address] [place] [address] 08-29-2022 08:48-0500 Heart rate 76 /min DR JASEN EARLY MD [address] [place] [address] 08-29-2022 07:02-0500 Blood Pressure Cuff Size DR JASEN EARLY MD [address] [place] [address] 08-29-2022 07:02-[address] JASEN EARLY MD [address] [place] [address] 08-29-2022 07:02-[address] JASEN EARLY MD [address] [place] [address] 08-29-2022 07:02-0500 Body temperature 97.88 [degF] DR JASEN EARLY MD [address] [place] [address] 08-29-2022 07:02-0500 Diastolic Blood Pressure Non-Invasive [address] JASEN EARLY MD [address] [place] [address] 08-29-2022 07:02-0500 Heart rate 64 /min DR JASEN EARLY MD [address] [place] [address] 08-29-2022 07:02-0500 Reason For Taking VItal Signs DR JASEN EARLY MD [address] [place] [address] 08-29-2022 07:02-0500 Respiratory rate 18 /min DR JASEN EARLY MD [address] [place] [address] 08-29-2022 07:02-0500 Systolic Blood Pressure Non-Invasive [address] JASEN EARLY MD [address] [place] [address] 08-29-2022 04:16-0500 Body temperature 98.06 [degF] DR JASEN EARLY MD [address] [place] [address] 08-29-2022 04:16-0500 Diastolic Blood Pressure Non-Invasive [address] JASEN EARLY MD [address] [place] [address] 08-29-2022 04:16-0500 Respiratory rate 18 /min DR JASEN EARLY MD [address] [place] [address] 08-29-2022 04:16-0500 Systolic Blood Pressure Non-Invasive [address] JASEN EARLY MD [address] [place] [address] 08-28-2022 23:37-0500 Mean blood pressure 61 mm[Hg] DR JASEN EARLY MD [address] [place] [address] 08-28-2022 23:37-0500 Reason For Taking VItal Signs DR JASEN EARLY MD [address] [place] [address] 08-28-2022 19:34-0500 Mean blood pressure 74 mm[Hg] DR JASEN EARLY MD [address] [place] [address] 08-28-2022 17:12-0500 Heart rate 73 /min DR JASEN EARLY MD [address] [place] [address] 08-28-2022 08:18-0500 Heart rate 67 /min DR JASEN EARLY MD [address] [place] [address] 08-28-2022 02:45-0500 Mean blood pressure 82 mm[Hg] DR JASEN EARLY MD [address] [place] [address] 08-27-2022 14:19-0500 Body height 167.[address] JASEN EARLY MD [address] [place] [address] 08-27-2022 14:19-0500 Body weight 104.[address] JASEN EARLY MD [address] [place] [address] 08-27-2022 14:19-0500 Body weight 37.2 kg/m2 DR JASEN EARLY MD [facility] 08-27-2022 12:18-0500 Diastolic Blood Pressure Non-Invasive [address] SEVEN LOZOYA MD [facility] 08-27-2022 12:18-0500 Heart rate 64 /min DR SEVEN LOZOYA MD [facility] 08-27-2022 12:18-0500 Respiratory rate 16 /min DR SEVEN LOZOYA MD [facility] 08-27-2022 12:18-0500 Systolic Blood Pressure Non-Invasive [address] SEVEN LOZOYA MD [facility] 08-27-2022 11:10-0500 Diastolic Blood Pressure Non-Invasive [address] SEVEN LOZOYA MD [facility] 08-27-2022 11:10-0500 Heart rate 66 /min DR SEVEN LOZOYA MD [facility] 08-27-2022 11:10-0500 Respiratory rate 16 /min DR SEVEN LOZOYA MD [facility] 08-27-2022 11:10-0500 Systolic Blood Pressure Non-Invasive [address] SEVEN LOZOYA MD [facility] 08-27-2022 10:18-0500 Diastolic Blood Pressure Non-Invasive [address] SEVEN LOZOYA MD [facility] 08-27-2022 10:18-0500 Reason For Taking VItal Signs DR SEVEN LOZOYA MD [facility] 08-27-2022 10:18-0500 Systolic Blood Pressure Non-Invasive [address] SEVEN LOZOYA MD [facility] 08-27-2022 09:51-0500 Body temperature 98.24 [degF] DR SEVEN LOZOYA MD [facility] 08-27-2022 09:51-0500 Body weight 104.[address] SEVEN LOZOYA MD [facility] 08-27-2022 09:51-0500 Heart rate 86 /min DR SEVEN LOZOYA MD [facility] 08-27-2022 09:51-0500 Respiratory rate 20 /min DR SEVEN LOZOYA MD [facility] NEGATED: Highlighted [id number] 07:47-0400 BMI (Body Mass Index) 37.26 kg/m2 Archana Gunter LPN [facility] Work Phone: NEGATED: Highlighted [id number] 07:47-0400 Body weight 104.33 kg Archana Naniglenny [employer] [facility] Work Phone: NEGATED: Highlighted [id number] 07:47-0400 Body weight 105 kg Archana Gunter [employer] [facility] Work Phone: NEGATED: Highlighted [id number] 07:47-0400 BP Diastolic 81 mm[Hg] Archana Gunter [employer] [facility] Work Phone: NEGATED: Highlighted [id number] 07:47-0400 BP Systolic 144 mm[Hg] Archana Gunter [employer] [facility] Work Phone: NEGATED: Highlighted [id number] 07:47-0400 Heart rate 2+ Archana Szemenyei [employer] [facility] Work Phone: NEGATED: Highlighted [id number] 07:47-0400 Height 167.64 cm Archana Gunter LPN [facility] Work Phone: NEGATED: Highlighted [id number] 07:47-0400 Height 168 cm Archana Gunter LPN [facility] Work Phone: NEGATED: Highlighted [id number] 07:47-0400 Pulse (Heart Rate) 57 /min Archana Gunter [employer] [facility] Work Phone: Encounters Encounter Date Encounter Type Care Provider Facility Start: 02-12-2025 ambulatory Margarito Rivero NP Facilit y:[facility] Start: 02-05-[address] SHON Johnson cility:[facility] Start: 01-19-2025 End: 01-19-[address] SHON HERRERA DO Facility:[facility] Start: 01-19-2025 End: 01-19-2025 Patient encounter procedure MARGARITO RIVERO APRN-BLEACH PLANT OPERATOR [facility] Start: 01-17-2025 End: 01-17-[address] SHON HERRERA DO Facility:[facility] Start: 01-17-2025 End: 01-17-[address] SHON HERRERA DO [facility] Start: 01-13-[address] SEVEN HOPPER MD Facility:A Start: 12-16-[address] SHON Johnson cility:[facility] Start: 12-16-2024 End: 12-16-2024 ambulatory SIRENA MONTENEGRO Facility:A Start: 12-16-2024 End: 12-16-2024 Patient encounter procedure SIRENA DUNAWAY APRN-BLEACH PLANT OPERATOR [facility] Start: 08-21-[address] SHON HERRERA DO Fa cility:[facility] Start: 05-29-2024 End: 06-02-[address] SHON HERRERA DO Facility:[facility] Start: 05-29-2024 End: 06-02-[address] SHON HERRERA DO [facility] Start: 02-21-[address] SHON HERRERA DO Fa cility:[facility] Start: 01-23-2024 End: 01-23-[address] SHON HUTCHINSONR DO Facility:[facility] Start: 01-23-2024 End: 01-23-[address] SHON HERRERA DO [facility] Start: 01-14-2024 End: 01-14-[address] SHON HERRERA DO Facility:[facility] Start: 01-10-2024 End: 01-10-2024 Emergency department patient visit FIDEL CALLES DO [facility] Start: 12-27-2023 End: 12-27-[address] SHON HERRERA DO Facility:[facility] Start: 12-27-2023 End: 12-27-[address] SHON HERRERA DO [facility] Start: 12-20-2023 End: 12-20-[address] SHON HERRERA DO Facility:[facility] Start: 12-20-2023 End: 12-20-[address] SHON HERRERA DO [facility] Start: 10-22-2023 End: 10-26-[address] SHON HERRERA DO Facility:[facility] Start: 10-22-2023 End: 10-26-[address] SHON HERRERA DO [facility] Start: 10-19-2023 End: 10-19-2023 ambulatory MARGARITO RIVERO FELLER SEAM OPERATOR-BLEACH PLANT OPERATOR Facility:[facility] Start: 10-19-2023 End: 10-19-2023 Patient encounter procedure MARGARITO RIVERO FELLER SEAM OPERATOR-BLEACH PLANT OPERATOR [facility] Start: 09-03-2023 End: 09-03-2023 Emergency department patient visit DR VIVI OBANDO DO Facility:[facility] Start: 05-31-2023 End: 05-31-2023 Emergency department patient visit KATELYN OPALYusuf DO [facility] Start: 04-19-[address] SHON HERRERA DO Fa cility:A Start: 04-18-2023 End: 04-18-2023 ambulatory SIRENA DUNAWAY FELLER SEAM OPERATOR-BLEACH PLANT OPERATOR Facility:A Start: 10-12-2022 End: 10-13-2022 Observation RAFFAELE CALDERON MD [facility] Start: 08-27-2022 End: 08-29-2022 Evaluation and management of inpatient DR JASEN EARLY MD [facility] Start: 08-27-2022 End: 08-27-2022 Emergency department patient visit DR SEVEN LOZOYA MD [facility] Start: 08-11-2022 End: 08-11-2022 Patient encounter procedure [place] ARMENTA FELLER SEAM OPERATOR-BLEACH PLANT OPERATOR [facility] Start: 07-25-2022 End: 07-25-2022 Patient encounter procedure SIRENA DUNAWAY FELLER SEAM OPERATOR-BLEACH PLANT OPERATOR [facility] Start: 07-20-2022 End: 08-29-2022 Physical therapy management AZEB FISCHER DO [facility] Start: 05-17-2022 End: 05-21-[address] SHON HERRERA DO [facility] Start: 01-03-2022 End: 01-03-2022 Patient encounter procedure MARGARITO RIVERO FELLER SEAM OPERATOR-BLEACH PLANT OPERATOR [facility] Start: 03-18-2019 End: 03-18-2019 Patient encounter procedure Marek Rod MD Work Phone: [facility] Work Phone: Start: 07-21-2017 [facility] Procedures Date Procedure Procedure Detail Performing Clinician Start: 03-18-2019 End: 03-18-2019 BMI documented as above normal parameters - follow-up documented Marek Rod MD Work Phone: Start: 03-18-2019 End: 03-18-2019 Documentation of current medications Marek Rod MD Work Phone: Start: 03-18-2019 End: 03-18-2019 Osteoarthritis assess Marek Sears Work Phone: Start: 03-18-2019 End: 03-18-2019 Pain assessment documented as positive - follow-up documented Marek Rod MD Work Phone: Start: 03-18-2019 End: 03-18-2019 Tobacco non-user Marek Rod MD Work Phone: Start: 11-08-2018 Arthroplasty of ankl e with implant MARGARITO RIVERO FELLER SEAM OPERATOR-BLEACH PLANT OPERATOR Comment on above: lateral ligament rec onstruction - [facility] Start: 10-08-2017 Total replacement of hip MARGARITO RIVERO FELLER SEAM OPERATORTethis Comment on above: LEFT - Dr Sharpe [facility] Start: 06-09-2015 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 MARGARITO RIVERO FELLER SEAM OPERATORTethis Comment on above: RIGHT - Dr Sharpe [facility] Start: 09-22-2000 Circumcision MARGARITO LEWIS FELLER SEAM OPERATORTethis Comment on above: Dr Cook - [place] Coronary artery bypa ss graft operation planned MARGARITO RIVERO FELLER SEAM OPERATORTethis Entire right shoulde r region (body structure) MARGARITO RIVERO FELLER SEAM OPERATORTethis Entire right shoulde r region (body structure) DR SHON HERRERA DO History of coronary artery bypass grafting S/P CABG (CORONARY ARTERY BYPASS GRAFT)( Confirmed ) 3 MARGARITO RIVERO FELLER SEAM OPERATORTethis Comment on above: CABG in 2009 with RADHA SHARPE in a sequential fashion to the LAD and second diagonal, left radial artery as a free graft to the marginal branch of the circumflex, and SVGs to the PDA and acute marginal branches of the RCA. Stress test 2017 showed no ischemia and a normal EF. Stent, device (physi april object) RAFFAELE CALDERON MD Comment on above: heart NEGATED: Highlighted rowStart: 03-18-2019 End: 03-18-2019 Documentation of current medications Archana Gunter LPN Plan of Treatment Date Care Activity Detail Author Start: 03-18-2019 End: 03-18-2019 Appointment Appointment [facility] Work Phone: Start: 03-18-2019 End: 03-18-2019 Radex ankle complete minimum 3 views XR ANKLE 3 VWS-LT [facility] Work Phone: Patient Education \[email or web address]\CPS_ PtEducati on\[email or web address].pdf [facility] Work Phone: Immunizations Immunization Date Immunization Notes Care Provider Walt roberson 05-31-2023 tetanus toxoid, redu erin diphtheria toxoid, and acellular pertussis vaccine, adsorbed KATELYN JEDJENARO DO [facility] 08-15-2018 influenza virus vacc ine, unspecified formulation DR SHON HERRERA DO [facility] 06-07-2017 influenza virus vacc ine, unspecified formulation DR SHON HERRERA DO [facility] 06-05-2016 influenza virus vacc ine, unspecified formulation DR SHON HERRERA DO [facility] 06-05-2016 pneumococcal conjuga te vaccine, 13 valent MARGARITO RIVERO FELLER SEAM OPERATOR-[employer] OPERATOR [facility] Comment on above: Location History: [place] [facility] 06-01-2014 influenza virus vacc ine, unspecified formulation DR SHON HERRERA DO [facility] 06-27-2013 influenza virus vacc ine, unspecified formulation DR SHON HERRERA DO [facility] 06-27-2013 pneumococcal polysaccharide vaccine, 23 valent MARGARITO RIVERO FELLER SEAM OPERATOR-[employer]ACH [employer] OPERATOR [facility] Comment on above: Location History: [place] [facility] 06-27-2013 tetanus toxoid, redu erin diphtheria toxoid, and acellular pertussis vaccine, adsorbed MARGARITO FISH FELLER SEAM OPERATOR-[employer]ACH [employer]ANT OPERATOR [facility] Comment on above: Location History: DF P Payers Date Payer Category Payer Unknown [id number] 2023 Unknown [id number] 2023 Unknown [id number] 2023 Self-pay 2023 Private Health Insurance [id number] 2011 Medicare [id number] 1946 Unknown [id number] 2.16.8 40.1.453585.3.579.2.627 1946 Unknown [id number] 2.16.8 40.1.058669.3.579.2.627 1946 Unknown [id number] 2.16.8 40.1.679571.3.579.2.627 1946 Unknown [id number] 2.16.8 40.1.510076.3.579.2.627 1946 Unknown [id number] 2.16.8 40.1.336151.3.579.2. 1946 Unknown [id number] 2.16.8 40.1.332898.3.579.2.627 1946 Unknown [id number] 2.16.8 40.1.273045.3.579.2.7 1946 Unknown [id number] 2.16.8 40.1.997059.3.579.2.627 1946 Unknown [id number] 2.16.8 40.1.582604.3.579.2.627 1946 Unknown [id number] 2.16.8 40.1.693893.3.579.2.627 1946 Unknown [id number] 2.16.8 40.1.958809.3.579.2.627 1946 Unknown [id number] 2.16.8 40.1.832660.3.579.2.627 194 Unknown [id number] 2.16.8 40.1.822936.3.579.2.627 1946 Unknown [id number] 2.16.8 40.1.817966.3.579.2.627 1946 Unknown [id number] 2.16.8 40.1.926398.3.579.2.627 1946 Unknown [id number] 2.16.8 40.1.786142.3.579.2.627 1946 Unknown [id number] 2.16.8 40.1.294545.3.579.2.627 1946 Unknown [id number] 2.16.8 40.1.247511.3.579.2.627 1946 Unknown [id number] 2.16.8 40.1.706230.3.579.2.627 1946 Unknown [id number] 2.16.8 40.1.368742.3.579.2.627 1946 Unknown [id number] 2.16.8 40.1.839783.3.579.2.627 Unknown [id number] 2.16.8 40.1.244482.3.579.2.462 Social History Date Type Detail Facility Start: 03-18-2019 End: 03-18-2019 Assertion Unknown if ever smoked [facility] Work Phone: Start: 04-09-2019 Tobacco smoking status Ex-smoker (fi nding) [facility] Comment on above: No smoke exposure Sex Assigned At Male [facility] Sexual Orientation [facility] Start: 03-05-2019 Sex Male (finding) [facility] Medical Equipment Procedure Code Equipment Code Equipment Origin al Text Equipment Identifier Dates See Instructions , two times daily E11.65 #50, # 1 EA, 5 Refill(s), Pharmacy: [facility] [facility], DM (diabetes mellitus), type 2, uncontrolled Uncontrolled diabetes with stage 3 chronic kidney disease GFR 30-59, 166, cm, 09/23/20 8:50:00 EST,... Start: 09-23-2020 See Instructions , and lancet device. two times daily. E11.65 1 box., # 1 EA, 5 Refill(s), Pharmacy: [address] DM (diabetes mellitus), type 2, uncontrolled Uncontrolled diabetes with stage 3 chronic kidney disease GFR 30-59, 166, cm... Start: 09-23-2020 See Instructions , two times daily E11.65 #50, # 1 EA, 5 Refill(s), Pharmacy: [address] DM (diabetes mellitus), type 2, uncontrolled Uncontrolled diabetes with stage 3 chronic kidney disease GFR 30-59, 166, cm, 09/23/20 8:50:00 EST,... Start: 09-23-2020 See Instructions , and lancet device. two times daily. E11.65 1 box., # 1 EA, 5 Refill(s), Pharmacy: [address], DM (diabetes mellitus), type 2, uncontrolled Uncontrolled diabetes with stage 3 chronic kidney disease GFR 30-59, 166, cm... Start: 09-23-2020 See Instructions , two times daily E11.65 #50, # 1 EA, 5 Refill(s), Pharmacy: [address], DM (diabetes mellitus), type 2, uncontrolled Uncontrolled diabetes with stage 3 chronic kidney disease GFR 30-59, 166, cm, 09/23/20 8:50:00 EST,... Start: 09-23-2020 See Instructions , and lancet device. two times daily. E11.65 1 box., # 1 EA, 5 Refill(s), Pharmacy: [address] DM (diabetes mellitus), type 2, uncontrolled Uncontrolled diabetes with stage 3 chronic kidney disease GFR 30-59, 166, cm... Start: 09-23-2020 See Instructions , two times daily E11.65 #50, # 1 EA, 5 Refill(s), Pharmacy: [address] DM (diabetes mellitus), type 2, uncontrolled Uncontrolled diabetes with stage 3 chronic kidney disease GFR 30-59, 166, cm, 09/23/20 8:50:00 EST,... Start: 09-23-2020 See Instructions , and lancet device. two times daily. E11.65 1 box., # 1 EA, 5 Refill(s), Pharmacy: [address], DM (diabetes mellitus), type 2, uncontrolled Uncontrolled diabetes with stage 3 chronic kidney disease GFR 30-59, 166, cm... Start: 09-23-2020 See Instructions , two times daily E11.65 #50, # 1 EA, 5 Refill(s), Pharmacy: [address], DM (diabetes mellitus), type 2, uncontrolled Uncontrolled diabetes with stage 3 chronic kidney disease GFR 30-59, 166, cm, 09/23/20 8:50:00 EST,... Start: 09-23-2020 See Instructions , and lancet device. two times daily. E11.65 1 box., # 1 EA, 5 Refill(s), Pharmacy: [address], DM (diabetes mellitus), type 2, uncontrolled Uncontrolled diabetes with stage 3 chronic kidney disease GFR 30-59, 166, cm... Start: 09-23-2020 Functional Status Date Assessment Result Facility 05-31-2023 Functional Status Room check performed [facility] 10-13-2022 Functional Status Room check performed [facility] 10-13-2022 Functional Status [facility] 10-12-2022 Functional Status [facility] 10-12-2022 Functional Status [facility] 10-12-2022 Functional Status [facility] 10-12-2022 Functional Status Sensory Deficits None [facility] 10-12-2022 Functional Status Maintained [facility] 08-29-2022 Functional Status Door open, Bathroom light on, Non-Slip footwear, Room check performed [facility] 08-29-2022 Functional Status [facility] 08-29-2022 Functional Status [facility] 08-28-2022 Functional Status [facility] 08-27-2022 Functional Status [facility] 08-27-2022 Functional Status Sensory Deficits None [facility] 08-27-2022 Functional Status Standard Safet y ID band on, Call device within reach, Bed in low position, Wheels locked [facility] 07-20-2022 Functional Status OBJECTIVE BP: 150/71 which pt reports is normal for him Posture: forward head, overwight Gait: amb with no AD and visible limp/antalgic gait with pt reports is due to R ankle Transfers: WNL Sensation: no abnormalities or asymmetries Reflexes: NT Edema: none AROM: mild restriction with extension - overall WNL [facility] Mental Status Date Assessment Result Facility 01-10-2024 Mental Status Orientation Oriented x 4 [facility] 01-10-2024 Mental Status [facility] 05-31-2023 Mental Status Oriented x 4 [facility] 10-13-2022 Mental Status Orientation Oriented x 4 [facility] 10-13-2022 Mental Status [facility] 10-12-2022 Mental Status Orientation Asse ssment Oriented x 4 [facility] 10-12-2022 Mental Status [facility] 10-12-2022 Mental Status [facility] 08-29-2022 Mental Status Orientation Oriented x 4 [facility] 08-29-2022 Mental Status [facility] 08-28-2022 Mental Status [facility] 08-28-2022 Mental Status Orientation Asse ssment Oriented x 4 [facility] 08-28-2022 Mental Status [facility] 08-27-2022 Mental Status [facility] 08-27-2022 Mental Status Orientation Oriented x 4 [facility] Clinical Notes 08-27-2022 to 01-16-2024 Note Date & Type Note Facility 01-16-2024 Note . MICRO - Microbiology PROCEDURE: Urine Culture [*1] SOURCE: Urine, Clean Catch BODY SITE: COLLECTED DATE/TIME: 01/14/2024 17:32 EDT RECEIVED DATE/TIME: 01/15/2024 14:14 EDT START DATE/TIME: 01/15/2024 14:14 EDT FREE TEXT SOURCE: FINAL REPORTS Final Report [] Verified Date/Time/Personnel: 01/16/2024 14:16 EDT >100,000 cfu/ml Multiple bacterial morphotypes present. Probable Contamination. Suggest recollection if clinically indicated. Performing Locations *1: This test was performed at: [facility], [address] [place] [address], [id number] , [facility] ([place]) 01-11-2024 Hospital Discharge instructions Patient Education 01/10/2024 22:30:14 Myofascial Pain Syndrome Myofascial Pain Syndrome Your pain is caused by a state of chronic muscle tension. This condition is called by various names: myofascial pain, fibrositis, and trigger point pain. This can also be due to mechanical stress, such as working at a computer terminal for long periods or work that requires repetitive motions of the arms or hands. It can also be caused by emotional stress, such as problems on the job or in your personal life. Sometimes there is no obvious cause. The pain can happen in the area of the muscle spasm or at a site distant to it. For example, spasm of a neck muscle can cause headache. Spasm of the muscle near the shoulder blade can cause pain shooting down the arm. Home care Try to identify the factors that may be causing your problem and change them: oIf you feel that emotional stress is a cause of your pain, learn methods to better deal with the stress in your life. These may include regular exercise, muscle relaxation techniques, meditation, or simply taking time out for yourself. Talk with your healthcare provider or go to a local bookstore and review the many books and tapes about reducing stress. oIf you feel that physical stress is a cause for your pain, try to change any poor work habits. You may use fwdl-yxx-sftukcr pain medicine to control pain, unless another medicine was prescribed. If you have chronic liver or kidney disease or ever had a stomach ulcer or gastrointestinal bleeding, talk with your healthcare provider before using these medicines. Apply an ice pack over the injured area for 15 to 20 minutes every 3 to 6 hours. You should do this for the first 24 to 48 hours. You can make an ice pack by filling a plastic bag that seals at the top with ice cubes and then wrapping it with a thin towel. Be careful not to injure your skin with the ice treatments. Ice should never be applied directly to skin. Continue the use of ice packs for relief of pain and swelling as needed. After 48 hours, apply heat (warm shower or warm bath) for 15 to 20 minutes several times a day, or alternate ice and heat. Massage the trigger point and stretch out the muscle. Trigger point massage can be done by applying heat to the area to warm and prepare the muscle. Then have someone apply steady thumb pressure directly on the knot in the muscle for 30 seconds. Release the pressure, then massage the surrounding muscle. Repeat the process, applying more pressure to the trigger point each time. Do this up to the limit of pain. With each treatment, the trigger point should become less tender and the pain should decrease. You can apply local pressure to trigger points in the back by lying on the floor with a tennis ball under the trigger point. Follow-up care Follow up with your healthcare provider, or as advised. You may need physical therapy if you don t respond to home treatment alone. Call 911 Call 911 if you have: A trigger point in the chest muscles, pain that becomes more severe, lasts longer, or spreads into your shoulder, arm, or jaw Chest pain or discomfort Trouble breathing with or without chest discomfort Sweating, lightheadedness, nausea, or vomiting along with chest discomfort Sudden weakness or numbness in the arm, leg, or face, especially if this happens on one side of the body When to seek medical advice Call your healthcare provider right away if any of these occur: A week passes and you have not improved If your pain worsens, regardless of its location [id number] [employer]. [address] [place] [address]. All rights reserved. This information is not intended as a substitute for professional medical care. Always follow your healthcare professional's instructions. Follow Up Care 01/10/2024 19:02:20 With:SHON HERRERA DO Address: [address] [facility] [place] [address]- [phone] When:2-4 days [facility] 01-10-2024 Note Discharge Instructions Thank you for allowing [facility] to assist you with your healthcare needs. The following is important discharge information regarding your hospital visit. Diagnosis from Today's Visit Groin pain Groin pain Musculoskeletal pain What to Do Next Instructions from Your Care Team No qualifying data available. Post Acute Orders No qualifying data available. You Need to Schedule the Following Appointments Follow Up with SHON HERRERA DO When Within 2-4 days Where: [address] [facility] [place] [address] [phone] Allergies Imdur (Muscle ache) Statins (muscle and joint pain) Medications Please ask your primary doctor or pharmacist before taking any other medication not listed, including over the counter drugs, herbal medications, vitamins and or supplements as they may interact with your home medications. What How Much When Instructions Last Dose Unchanged aspirin (aspirin 81 mg oral delayed release tablet) 1 tab(s) by mouth Once a day Unchanged clopidogrel (Plavix 75 mg oral tablet) 1 tab(s) by mouth Once a day Unchanged ezetimibe (ezetimibe 10 mg oral tablet) 1 tab(s) by mouth Once a day Unchanged furosemide (furosemide 20 mg oral tablet) 1 tab(s) by mouth Once a day As needed for swelling Unchanged metoprolol (Metoprolol Tartrate 50 mg oral tablet) 1 tab(s) by mouth Once a day Unchanged triamcinolone topical (triamcinolone 0.1% topical paste) 1 application Topical Two (2) times a day 16 oz. jar. Apply to Armpit and Groin as needed for itching Please take this list to your next doctor s visit. Bring all medications you take, including over the counter medications, herbals and other supplements with you to your doctor s visit. Patients and families are reminded to discard old lists and to update any records with all medication providers or retail pharmacies. Education Materials Myofascial Pain Syndrome Your pain is caused by a state of chronic muscle tension. This condition is called by various names: myofascial pain, fibrositis, and trigger point pain. This can also be due to mechanical stress, such as working at a computer terminal for long periods or work that requires repetitive motions of the arms or hands. It can also be caused by emotional stress, such as problems on the job or in your personal life. Sometimes there is no obvious cause. The pain can happen in the area of the muscle spasm or at a site distant to it. For example, spasm of a neck muscle can cause headache. Spasm of the muscle near the shoulder blade can cause pain shooting down the arm. Home care Try to identify the factors that may be causing your problem and change them: oIf you feel that emotional stress is a cause of your pain, learn methods to better deal with the stress in your life. These may include regular exercise, muscle relaxation techniques, meditation, or simply taking time out for yourself. Talk with your healthcare provider or go to a local bookstore and review the many books and tapes about reducing stress. oIf you feel that physical stress is a cause for your pain, try to change any poor work habits. You may use xers-tfk-agajwxf pain medicine to control pain, unless another medicine was prescribed. If you have chronic liver or kidney disease or ever had a stomach ulcer or gastrointestinal bleeding, talk with your healthcare provider before using these medicines. Apply an ice pack over the injured area for 15 to 20 minutes every 3 to 6 hours. You should do this for the first 24 to 48 hours. You can make an ice pack by filling a plastic bag that seals at the top with ice cubes and then wrapping it with a thin towel. Be careful not to injure your skin with the ice treatments. Ice should never be applied directly to skin. Continue the use of ice packs for relief of pain and swelling as needed. After 48 hours, apply heat (warm shower or warm bath) for 15 to 20 minutes several times a day, or alternate ice and heat. Massage the trigger point and stretch out the muscle. Trigger point massage can be done by applying heat to the area to warm and prepare the muscle. Then have someone apply steady thumb pressure directly on the knot in the muscle for 30 seconds. Release the pressure, then massage the surrounding muscle. Repeat the process, applying more pressure to the trigger point each time. Do this up to the limit of pain. With each treatment, the trigger point should become less tender and the pain should decrease. You can apply local pressure to trigger points in the back by lying on the floor with a tennis ball under the trigger point. Follow-up care Follow up with your healthcare provider, or as advised. You may need physical therapy if you don t respond to home treatment alone. Call 911 Call 911 if you have: A trigger point in the chest muscles, pain that becomes more severe, lasts longer, or spreads into your shoulder, arm, or jaw Chest pain or discomfort Trouble breathing with or without chest discomfort Sweating, lightheadedness, nausea, or vomiting along with chest discomfort Sudden weakness or numbness in the arm, leg, or face, especially if this happens on one side of the body When to seek medical advice Call your healthcare provider right away if any of these occur: A week passes and you have not improved If your pain worsens, regardless of its location [phone] [employer]. [address] [place] [address], [place] [address]. All rights reserved. This information is not intended as a substitute for professional medical care. Always follow your healthcare professional's instructions. Additional Information VACCINATE! IT SAVES LIVES! Members of the community who have not yet received the COVID-19 vaccine and would like to receive it can visit one of [facility] vaccine clinics. There are many vaccine clinic locations within the [facility]. For locations and available times, please visit [email or web address].[email or web address] [email or web address] It is important to note that some COVID mobile vaccine clinics are held outdoors and may be canceled in rainy or stormy conditions. To learn more about pediatric vaccinations (ages 5-11), we invite you to visit the [facility] webpage. [email or web address]/pag [email or web address]-Uijtv-Vnybexpjzft-[email or web address] vr-Hikzm-Meyjspcsc.[email or web address] To learn more about the COVID-19 vaccine, we invite you to visit the CDC website for a list of frequently asked questions. https://www.cdc.gov/coronavirus/ 19-ncov/vaccines/faq.html [employer] Patient Portal Access Instructions: Stay connected with your healthcare team and access your personal medical information anytime with the [employer] Patient Portal. If you would like a full copy of your medical records please contact the [facility] Medical Records Department Sunday through Sunday between 8a.m. and 4:30p.m. Please follow the directions below to access the portal: 1.Access the email account you provided upon registration to the hospital.2.Look for an invitation email from [facility].3.Open the email and access the invitation link: Accept Invitation to [employer]4.Fill in the required cardenas to create your account. Sign into [email or web address] with your username and password that you created in the above steps to stay up to date. You can then view a summary of results, a summary of your visits, and the ability to download your summaries to your computer or send the information securely to a physician. Remember that your healthcare information is confidential, so carefully consider who you will allow to register on the [employer] Patient Portal for access to your information. You can also access the [employer] Patient Portal on the [employer]. Simply click on Health Records under Health Data and then click on the [employer] logo. HOW TO SAFELY DISPOSE OF PRESCRIPTION MEDICATIONS Please use one of the following methods to safely dispose of your unused medications. 1.Use a drug disposal kit: the drug disposal pouch allows you to safely discard your old and unused drugs. Ask your nurse to give you one when you are discharged.2.Visit a local take-back location: Many local pharmacies and police departments have programs that collect old and unwanted prescription drugs. Call your local pharmacy or go to http://[employer]/6S5Vt5q to find one close to you.3.Make use of household items: Use cat litter or old coffee grounds to dispose medications if other options are not available. Mix your drugs with these household products, seal them in an airtight container and throw it into the garbage. Call [facility]: [phone] to be sure your drugs can be disposed of in this way. Some medicines may require a different approach.4.Never flush your medications down the toilet. IF YOU HAVE BEEN PRESCRIBED AN OPIOIDS FOR PAIN If you have been prescribed an opioid (such as hydrocodone, oxycodone or morphine), it is critical to understand the possible side effects and risks of opioid pain medications. Even when taken as directed, opioids can have several side effects including: Tolerance, meaning you might need to take more of a medication for the same pain relief. Nausea, vomiting and/or constipation. Sleepiness, dizziness, dry mouth, confusion, depression or itching. Physical dependence, meaning you have withdrawal symptoms when a medication is stopped ? this can develop within a few days. KNOW YOUR RESPONSIBILITIES It is important to know exactly how much and how often to take the opioid pain medications you are prescribed. Never take opioids in higher amounts or more often than prescribed. Do not combine opioids with alcohol or other drugs that cause drowsiness, such as benzodiazepines, also known as benzos, including diazepam and alprazolam, muscle relaxants or sleep aids. Never sell or share prescription opioids. This is illegal. Store opioids in a secure place and out of reach of others (including children, family, friends and visitors). The last page(s) of this document has been signed and retained as a [employer]ART [employer] Patient Education Materials Myofascial Pain Syndrome Medication Leaflets My discharge plan and instructions have been reviewed and explained to me and I,AURE PURDY understand my current condition and have read and understand these discharge instructions. I have received a written copy of the plan/instructions. If I have questions, I am aware that I should contact my doctor. 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 Multiplanar reformatted images are provided for review. Automated exposure control, iterative reconstruction, and/or weight based adjustment of the mA/kV was utilized to reduce the radiation dose to as low as reasonably achievable. COMPARISON: 08/03/2016 HISTORY: ORDERING SYSTEM PROVIDED HISTORY: Reason for Exam: pain FINDINGS: Prior bilateral hip surgeries. There is no acute fracture. Provided images of the lower thorax demonstrate mild bilateral posterior pleural thickening. Mild diffuse hepatic hypoattenuation without focal lesion the visualized, which could reflect underlying hepatic steatosis or contrast bolus timing. Cholelithiasis. Pancreas, spleen, and adrenal glands are unremarkable. There are mild areas of renal cortical scarring or persistent lobulation. There is a right renal cyst which measures 2.4 cm. No hydronephrosis. Allowing for suboptimal evaluation of the distal ureters due to metallic artifact from hip hardware, grossly unremarkable ureters. Urinary bladder appears to demonstrate mild wall thickening, favored to be related to partially decompressed state although correlate clinically. Prostate is poorly visualized due to artifact. Nonspecific mild distal esophageal wall thickening. The aorta is atherosclerotic but nonaneurysmal. Mild to moderate colonic diverticulosis without evidence of diverticulitis. Normal appendix. No bowel obstruction. No free air, free fluid, or adenopathy identified. IMPRESSION: No definite acute findings. Additional findings as above I have personally reviewed the images of this examination and agree with the resident's findings and interpretation. Interpreted by: Zack Person Preliminary Report By: Seven Aguilar Electronically signed By Zack Person Dictated Date: 01/10/2024 8:57:42 PM Prelim Date: 01/10/2024 9:05:56 PM Sign Date: 01/10/2024 9:22:37 PM Ordering Provider: FIDEL CALLES [facility] 10-24-2023 Note . MICRO - Microbiology PROCEDURE: Culture Wound Aerobic with Gram Stain [*1] SOURCE: Abscess BODY SITE: Nose COLLECTED DATE/TIME: 10/22/2023 16:50 EST RECEIVED DATE/TIME: 10/22/2023 21:48 EST START DATE/TIME: 10/22/2023 21:48 EST FREE TEXT SOURCE: FINAL REPORTS Final Report [] Verified Date/Time/Personnel: 10/24/2023 08:07 EST No growth at 48 hours. PRELIMINARY REPORTS Preliminary Report [] Verified Date/Time/Personnel: 10/23/2023 10:19 EST No growth to date STAINS GS [] Verified Date/Time/Personnel: 10/23/2023 02:12 EST No organisms seen. Performing Locations *1: This test was performed at: [facility], [address] [place] [address], [id number] , [facility] ([place]) 09-06-2023 Note . MICRO - Microbiology PROCEDURE: Urine Culture [*1] SOURCE: Urine BODY SITE: COLLECTED DATE/TIME: 09/03/2023 20:11 EST RECEIVED DATE/TIME: 09/04/2023 13:37 EST START DATE/TIME: 09/04/2023 13:37 EST FREE TEXT SOURCE: FINAL REPORTS Final Report [] Verified Date/Time/Personnel: 09/06/2023 07:27 EST >100,000 cfu/ml Escherichia coli PRELIMINARY REPORTS Preliminary Report [] Verified Date/Time/Personnel: 09/05/2023 10:36 EST >100,000 cfu/ml Escherichia coli CAROLYNN to follow SUSCEPTIBILITY RESULTS Escherichia coli Antibiotic CAROLYNN Dilut CAROLYNN Inter Ampicillin <=8 Susceptible Ampicillin/ <=4/2 Susceptible Sulbactam Aztreonam <=4 Susceptible Cefazolin <=2 Susceptible Ciprofloxacin <=0.25 Susceptible Ertapenem <=0.5 Susceptible Gentamicin <=2 Susceptible ID Panel Not Not Applicable Applicable Imipenem <=1 Susceptible Levofloxacin <=0.5 Susceptible Meropenem <=1 Susceptible Minocycline <=4 Susceptible Nitrofurantoin <=32 Susceptible Trimethoprim/ <=0.5/9.5 Susceptible Sulfa Performing Locations *1: This test was performed at: [address] , [facility] ([place]) 06-03-2023 Note . MICRO - Microbiology PROCEDURE: Urine Culture [*1] SOURCE: Urine BODY SITE: COLLECTED DATE/TIME: 05/31/2023 13:29 EDT RECEIVED DATE/TIME: 06/01/2023 15:01 EDT START DATE/TIME: 06/01/2023 15:02 EDT FREE TEXT SOURCE: FINAL REPORTS Final Report [] Verified Date/Time/Personnel: 06/03/2023 08:27 EDT >100,000 cfu/ml Escherichia coli PRELIMINARY REPORTS Preliminary Report [] Verified Date/Time/Personnel: 06/02/2023 13:08 EDT >100,000 cfu/ml Escherichia coli CAROLYNN to follow SUSCEPTIBILITY RESULTS Escherichia coli Antibiotic CAROLYNN Dilut CAROLYNN Inter Ampicillin <=8 Susceptible Ampicillin/ <=4/2 Susceptible Sulbactam Aztreonam <=4 Susceptible Cefazolin <=2 Susceptible Ciprofloxacin <=0.25 Susceptible Ertapenem <=0.5 Susceptible Gentamicin <=2 Susceptible Imipenem <=1 Susceptible Levofloxacin <=0.5 Susceptible Meropenem <=1 Susceptible Minocycline <=4 Susceptible Nitrofurantoin <=32 Susceptible Trimethoprim/ <=0.5/9.5 Susceptible Sulfa Performing Locations *1: This test was performed at: [facility], [address] [place] [address], [id number] , [facility] ([place]) 05-31-2023 Hospital Discharge instructions Patient Education 05/31/2023 13:30:01 Bladder Infection, Male (Adult) Bladder Infection, Male (Adult) You have a bladder infection. Urine is normally free of bacteria. But bacteria can get into the urinary tract from the skin around the rectum or it may travel in the blood from elsewhere in the body. This is called a urinary tract infection (UTI). An infection can occur anywhere in the urinary tract. It could be in a kidney (pyelonephritis)or in the bladder (cystitis) and urethra (urethritis). The urethra is the tube that drains the urine from the bladder through the tip of the penis. The most common place for a UTI is in the bladder. This is called a bladder infection. Most bladder infections are easily treated. They are not serious unless the infection spreads up to the kidney. The terms bladder infection, UTI, and cystitis are often used to describe the same thing, but they aren t always the same. Cystitis is an inflammation of the bladder. The most common cause of cystitis is an infection. Keep in mind: Infections in the urine are called UTIs. Cystitis is usually caused by a UTI. Not all UTIs and cases of cystitis are bladder infections. Bladder infections are the most common type of cystitis. Symptoms of a bladder infection The infection causes inflammation in the urethra and bladder. This inflammation causes many of the symptoms. The most common symptoms of a bladder infection are: Pain or burning when urinating Having to go more often than usual Feeling like you need to go right away Only a small amount comes out Blood in urine Discomfort in your belly (abdomen), usually in the lower abdomen, above the pubic bone Cloudy, strong, or bad smelling urine Unable to urinate (retention) Urinary incontinence Fever Loss of appetite Older adults may also feel confused. Causes of a bladder infection Bladder infections are not contagious. You can't get one from someone else, from a toilet seat, or from sharing a bath. The most common cause of bladder infections is bacteria from the bowels. The bacteria get onto the skin around the opening of the urethra. From there they can get into the urine and travel up to the bladder. This causes inflammation and an infection. This usually happens because of: An enlarged prostate Poor cleaning of the genitals Procedures that put a tube in your bladder, like a Holden catheter Bowel incontinence Older age Not emptying your bladder (The urine stays there, giving the bacteria a chance to grow.) Dehydration (This allows urine to stay in the bladder longer.) Constipation (This can cause the bowels to push on the bladder or urethra and keep the bladder from emptying.) Treatment Bladder infections are treated with antibiotics. They usually clear up quickly without complications. Treatment helps prevent a more serious kidney infection. Medicines Medicines can help in the treatment of a bladder infection: You may have been given phenazopyridine to ease burning when you urinate. It will cause your urine to be bright orange. It can stain clothing. You may have been prescribed antibiotics. Take this medicine until you have finished it, even if you feel better. Taking all of the medicine will make sure the infection has cleared. You can use acetaminophen or ibuprofen for pain, fever, or discomfort, unless another medicine was prescribed. You can also alternate them, or use both together. They work differently and are a different class of medicines, so taking them together is not an overdose. If you have chronic liver or kidney disease, talk with your healthcare provider before using these medicines. Also talk with your provider if you ve had a stomach ulcer or GI bleeding or are taking blood thinner medicines. Home care Here are some guidelines to help you care for yourself at home: Drink plenty of fluids, unless your healthcare provider told you not to. Fluids will prevent dehydration and flush out your bladder. Use good personal hygiene. Wipe from front to back after using the toilet, and clean your penis regularly. If you aren t circumcised, retract the foreskin when cleaning. Urinate more frequently, and don t try to hold it in for long periods of time, if possible. Wear loose-fitting clothes and cotton underwear. Avoid tight-fitting pants. This helps keep you clean and dry. Change your diet to prevent constipation. This means eating more fresh foods and more fiber, and less junk and fatty foods. Avoid sex until your symptoms are gone. Avoid caffeine, alcohol, and spicy foods. These can irritate the bladder. Follow-up care Follow up with your healthcare provider, or as advised if all symptoms have not cleared up within 5 days. It is important to keep your follow-up appointment. You can talk with your provider to see if you need more tests of the urinary tract. This is especially important if you have infections that keep coming back. If a culture was done, you will be told if your treatment needs to be changed. If directed, you can call to find out the results. If X-rays were taken, you will be told of any findings that may affect your care. Call 911 Call 911 if any of these occur: Trouble breathing Difficulty waking up Feeling confused Fainting or loss of consciousness Rapid heart rate When to seek medical advice Call your healthcare provider right away if any of these occur: Fever of 100.4 F (38 C) or higher, or as directed by your healthcare provider Your symptoms don t improve after 2 days of treatment Back or abdominal pain that gets worse Repeated vomiting, or you aren t able to keep medicine down Weakness or dizziness [id number] [employer]. [address] [place] [address]. All rights reserved. This information is not intended as a substitute for professional medical care. Always follow your healthcare professional's instructions. Follow Up Care 05/31/2023 09:33:05 With:SHON HERRERA DO Address: [address] [facility] [place] [address]- [phone] When:2-4 days [facility] 05-31-2023 Emergency department Discharge summary Discharge Instructions Thank you for allowing [facility] to assist you with your healthcare needs. The following is important discharge information regarding your hospital visit. Diagnosis from Today's Visit Fall out of van door at work, vehicle not moving, + thinners UTI - Urinary tract infection What to Do Next Instructions from Your Care Team No qualifying data available. Post Acute Orders No qualifying data available. You Need to Schedule the Following Appointments Follow Up with SHON HERRERA DO When Within 2-4 days Where: [address] [facility] [place] [address]- [phone] Allergies Imdur (Muscle ache) Statins (muscle and joint pain) Immunizations This Visit Given Vaccine Datetetanus/diphth/pertuss (Tdap) adult/adol 05/31/2023 Medications Please ask your primary doctor or pharmacist before taking any other medication not listed, including over the counter drugs, herbal medications, vitamins and or supplements as they may interact with your home medications. What How Much When Instructions Last Dose New cephalexin (cephalexin 500 mg oral capsule) 1 cap by mouth Every 12 hours Duration: 7 Days Printed Prescription Unchanged aspirin (aspirin 81 mg oral delayed release tablet) 1 tab(s) by mouth Once a day Unchanged betamethasone-clotrimazole topical (betamethasone-clotrimazole 0.05%-1% topical cream) 1 application Topical Two (2) times a day Unchanged clopidogrel (Plavix 75 mg oral tablet) 1 tab(s) by mouth Once a day Unchanged evolocumab (Repatha SureClick 140 mg/ mL subcutaneous solution) 140 Milligram Subcutaneous Every other week rotate injection sites Unchanged ezetimibe (ezetimibe 10 mg oral tablet) 1 tab(s) by mouth Once a day Unchanged furosemide (furosemide 20 mg oral tablet) 1 tab(s) by mouth Once a day As needed for swelling Unchanged triamcinolone topical (triamcinolone 0.1% topical paste) 1 application Topical Two (2) times a day 16 oz. jar. Apply to Armpit and Groin as needed for itching Please take this list to your next doctor s visit. Bring all medications you take, including over the counter medications, herbals and other supplements with you to your doctor s visit. Patients and families are reminded to discard old lists and to update any records with all medication providers or retail pharmacies. Education Materials Bladder Infection, Male (Adult) You have a bladder infection. Urine is normally free of bacteria. But bacteria can get into the urinary tract from the skin around the rectum or it may travel in the blood from elsewhere in the body. This is called a urinary tract infection (UTI). An infection can occur anywhere in the urinary tract. It could be in a kidney (pyelonephritis)or in the bladder (cystitis) and urethra (urethritis). The urethra is the tube that drains the urine from the bladder through the tip of the penis. The most common place for a UTI is in the bladder. This is called a bladder infection. Most bladder infections are easily treated. They are not serious unless the infection spreads up to the kidney. The terms bladder infection, UTI, and cystitis are often used to describe the same thing, but they aren t always the same. Cystitis is an inflammation of the bladder. The most common cause of cystitis is an infection. Keep in mind: Infections in the urine are called UTIs. Cystitis is usually caused by a UTI. Not all UTIs and cases of cystitis are bladder infections. Bladder infections are the most common type of cystitis. Symptoms of a bladder infection The infection causes inflammation in the urethra and bladder. This inflammation causes many of the symptoms. The most common symptoms of a bladder infection are: Pain or burning when urinating Having to go more often than usual Feeling like you need to go right away Only a small amount comes out Blood in urine Discomfort in your belly (abdomen), usually in the lower abdomen, above the pubic bone Cloudy, strong, or bad smelling urine Unable to urinate (retention) Urinary incontinence Fever Loss of appetite Older adults may also feel confused. Causes of a bladder infection Bladder infections are not contagious. You can't get one from someone else, from a toilet seat, or from sharing a bath. The most common cause of bladder infections is bacteria from the bowels. The bacteria get onto the skin around the opening of the urethra. From there they can get into the urine and travel up to the bladder. This causes inflammation and an infection. This usually happens because of: An enlarged prostate Poor cleaning of the genitals Procedures that put a tube in your bladder, like a Holden catheter Bowel incontinence Older age Not emptying your bladder (The urine stays there, giving the bacteria a chance to grow.) Dehydration (This allows urine to stay in the bladder longer.) Constipation (This can cause the bowels to push on the bladder or urethra and keep the bladder from emptying.) Treatment Bladder infections are treated with antibiotics. They usually clear up quickly without complications. Treatment helps prevent a more serious kidney infection. Medicines Medicines can help in the treatment of a bladder infection: You may have been given phenazopyridine to ease burning when you urinate. It will cause your urine to be bright orange. It can stain clothing. You may have been prescribed antibiotics. Take this medicine until you have finished it, even if you feel better. Taking all of the medicine will make sure the infection has cleared. You can use acetaminophen or ibuprofen for pain, fever, or discomfort, unless another medicine was prescribed. You can also alternate them, or use both together. They work differently and are a different class of medicines, so taking them together is not an overdose. If you have chronic liver or kidney disease, talk with your healthcare provider before using these medicines. Also talk with your provider if you ve had a stomach ulcer or GI bleeding or are taking blood thinner medicines. Home care Here are some guidelines to help you care for yourself at home: Drink plenty of fluids, unless your healthcare provider told you not to. Fluids will prevent dehydration and flush out your bladder. Use good personal hygiene. Wipe from front to back after using the toilet, and clean your penis regularly. If you aren t circumcised, retract the foreskin when cleaning. Urinate more frequently, and don t try to hold it in for long periods of time, if possible. Wear loose-fitting clothes and cotton underwear. Avoid tight-fitting pants. This helps keep you clean and dry. Change your diet to prevent constipation. This means eating more fresh foods and more fiber, and less junk and fatty foods. Avoid sex until your symptoms are gone. Avoid caffeine, alcohol, and spicy foods. These can irritate the bladder. Follow-up care Follow up with your healthcare provider, or as advised if all symptoms have not cleared up within 5 days. It is important to keep your follow-up appointment. You can talk with your provider to see if you need more tests of the urinary tract. This is especially important if you have infections that keep coming back. If a culture was done, you will be told if your treatment needs to be changed. If directed, you can call to find out the results. If X-rays were taken, you will be told of any findings that may affect your care. Call 911 Call 911 if any of these occur: Trouble breathing Difficulty waking up Feeling confused Fainting or loss of consciousness Rapid heart rate When to seek medical advice Call your healthcare provider right away if any of these occur: Fever of 100.4 F (38 C) or higher, or as directed by your healthcare provider Your symptoms don t improve after 2 days of treatment Back or abdominal pain that gets worse Repeated vomiting, or you aren t able to keep medicine down Weakness or dizziness [id number] [employer]. [address] [place] [address], [place] [address]. All rights reserved. This information is not intended as a substitute for professional medical care. Always follow your healthcare professional's instructions. Additional Information VACCINATE! IT SAVES LIVES! Members of the community who have not yet received the COVID-19 vaccine and would like to receive it can visit one of [facility] vaccine clinics. There are many vaccine clinic locations within the [facility]. For locations and available times, please visit [email or web address].[place].go [email or web address] It is important to note that some COVID mobile vaccine clinics are held outdoors and may be canceled in rainy or stormy conditions. To learn more about pediatric vaccinations (ages 5-11), we invite you to visit the [facility] webpage. https://[email or web address].org/pag es/6903-Ncggo-Xnhoilssknc-Frequent ea-Uoipr-Aaqcndcxa.html To learn more about the COVID-19 vaccine, we invite you to visit the CDC website for a list of frequently asked questions. https://www.cdc.gov/coronavirus/20 19-ncov/vaccines/faq.html [facility] [employer] Patient Portal Access Instructions: Stay connected with your healthcare team and access your personal medical information anytime with the [facility] Patient Portal. If you would like a full copy of your medical records please contact the [facility] Medical Records Department Sunday through Sunday between 8a.m. and 4:30p.m. Please follow the directions below to access the portal: 1.Access the email account you provided upon registration to the [facility].2.Look for an invitation email from [facility].3.Open the email and access the invitation link: Accept Invitation to [facility] [employer]4.Fill in the required cardenas to create your account. Sign into www.[email or web address] with your username and password that you created in the above steps to stay up to date. You can then view a summary of results, a summary of your visits, and the ability to download your summaries to your computer or send the information securely to a physician. Remember that your healthcare information is confidential, so carefully consider who you will allow to register on the [facility] Patient Portal for access to your information. You can also access the [facility] Patient Portal on the [employer]. Simply click on Health Records under Health Data and then click on the [employer]kit logo. HOW TO SAFELY DISPOSE OF PRESCRIPTION MEDICATIONS Please use one of the following methods to safely dispose of your unused medications. 1.Use a drug disposal kit: the drug disposal pouch allows you to safely discard your old and unused drugs. Ask your nurse to give you one when you are discharged.2.Visit a local take-back location: Many local pharmacies and police departments have programs that collect old and unwanted prescription drugs. Call your local pharmacy or go to http://Tynt[employer]/4R5Dq0m to find one close to you.3.Make use of household items: Use cat litter or old coffee grounds to dispose medications if other options are not available. Mix your drugs with these household products, seal them in an airtight container and throw it into the garbage. Call [facility]: [phone] to be sure your drugs can be disposed of in this way. Some medicines may require a different approach.4.Never flush your medications down the toilet. IF YOU HAVE BEEN PRESCRIBED AN OPIOIDS FOR PAIN If you have been prescribed an opioid (such as hydrocodone, oxycodone or morphine), it is critical to understand the possible side effects and risks of opioid pain medications. Even when taken as directed, opioids can have several side effects including: Tolerance, meaning you might need to take more of a medication for the same pain relief. Nausea, vomiting and/or constipation. Sleepiness, dizziness, dry mouth, confusion, depression or itching. Physical dependence, meaning you have withdrawal symptoms when a medication is stopped ? this can develop within a few days. KNOW YOUR RESPONSIBILITIES It is important to know exactly how much and how often to take the opioid pain medications you are prescribed. Never take opioids in higher amounts or more often than prescribed. Do not combine opioids with alcohol or other drugs that cause drowsiness, such as benzodiazepines, also known as benzos, including diazepam and alprazolam, muscle relaxants or sleep aids. Never sell or share prescription opioids. This is illegal. Store opioids in a secure place and out of reach of others (including children, family, friends and visitors). The last page(s) of this document has been signed and retained as a CHART COPY Signatures Patient Education Materials Bladder Infection, Male (Adult) Medication Leaflets My discharge plan and instructions have been reviewed and explained to me and I,AURE PURDY understand my current condition and have read and understand these discharge instructions. I have received a written copy of the plan/instructions. If I have questions, I am aware that I should contact my doctor. 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: Date/Time: Relationship to Patient: ___ Witness Name/Signature: Date/Time: [facility] 10-13-2022 Hospital Discharge instructions Patient Education 10/13/2022 15:25:58 3- Heart Cath/PCI groin (06/2018)(CUSTOM) HEART CATHETERIZATION/PCI (groin) Discharge Instructions DIET INSTRUCTIONS Drink plenty of fluids for the next 48 hours to help your kidneys flush the heart cath dye out of your system ACTIVITIES May go up and down stairs CAREFULLY Do not drive car FOR 24 HOURS No heavy lifting GREATER THAN 10 POUNDS or pushing or straining FOR 2 DAYS Someone must stay with you at home after the procedure until the morning. BATHING/SHOWERING May tub bathe in 1 week May shower tomorrow WOUND CARE You will go home with a Band-Aid over your heart cath site. Keep a Band-Aid on for the next 24 hours and then leave open to air. Some degree of bruising and tenderness is normal around the heart cath site. It will take a while for any bruising to completely resolve. Keep your site clean and dry. You need to report the following to your low voltage technician: Any draining or oozing from the site Any swelling at the site Any increased pain or tenderness at the site Any numbness in your leg where the procedure was done Any signs of infection IMPORTANT! CALL 911 FOR ANY BLEEDING OR SWELLING AT THE PROCEDURE SITE If there is any large amount of bleeding, you or someone else need to apply direct pressure to the site (just like the nurse did in the heart lab after your procedure). It is very important that you hold constant pressure. Do not release the pressure to check if the bleeding has stopped. You then need to be transported to the nearest emergency room. WATCH FOR SIGNS OF INFECTION (Usually appears 36-48 hours after surgery) A temperature above 100.5 Redness or swelling Increased pain Foul odor or drainage If you have any questions, please call your doctor at the number listed on your follow up instructions. Follow all instructions given to you by your physician Document Released: 08/27/2006 Document Revised: 08/13/2013 Document Reviewed: 08/28/2014 [facility] [place] Patient Information 2015 via[employer]ycle. This information is not intended to replace advice given to you by your health care provider. Make sure you discuss any questions you have with your health care provider. 10/13/2022 15:22:13 Nonspecific Chest Pain, Adult, Mhcg-dj-Scgs Nonspecific Chest Pain Chest pain can be caused by many different conditions. Some causes of chest pain can be life-threatening. These will require treatment right away. Serious causes of chest pain include: Heart attack. A tear in the body's main blood vessel. Redness and swelling (inflammation) around your heart. Blood clot in your lungs. Other causes of chest pain may not be so serious. These include: Heartburn. Anxiety or stress. Damage to bones or muscles in your chest. Lung infections. Chest pain can feel like: Pain or discomfort in your chest. Crushing, pressure, aching, or squeezing pain. Burning or tingling. Dull or sharp pain that is worse when you move, cough, or take a deep breath. Pain or discomfort that is also felt in your back, neck, jaw, shoulder, or arm, or pain that spreads to any of these areas. It is hard to know whether your pain is caused by something that is serious or something that is not so serious. So it is important to see your doctor right away if you have chest pain. Follow these instructions at home: Medicines Take vtio-fcm-qmbkvlf and prescription medicines only as told by your doctor. If you were prescribed an antibiotic medicine, take it as told by your doctor. Do not stop taking the antibiotic even if you start to feel better. Lifestyle Rest as told by your doctor. Do not use any products that contain nicotine or tobacco, such as cigarettes, e-cigarettes, and chewing tobacco. If you need help quitting, ask your doctor. Do not drink alcohol. Make lifestyle changes as told by your doctor. These may include: ?Getting regular exercise. Ask your doctor what activities are safe for you. ?Eating a heart-healthy diet. A diet and swine nutritionist (dietitian) can help you to learn healthy eating options. ?Staying at a healthy weight. ?Treating diabetes or high blood pressure, if needed. ?Lowering your stress. Activities such as yoga and relaxation techniques can help. General instructions Pay attention to any changes in your symptoms. Tell your doctor about them or any new symptoms. Avoid any activities that cause chest pain. Keep all follow-up visits as told by your doctor. This is important. You may need more testing if your chest pain does not go away. Contact a doctor if: Your chest pain does not go away. You feel depressed. You have a fever. Get help right away if: Your chest pain is worse. You have a cough that gets worse, or you cough up blood. You have very bad (severe) pain in your belly (abdomen). You pass out (faint). You have either of these for no clear reason: ?Sudden chest discomfort. ?Sudden discomfort in your arms, back, neck, or jaw. You have shortness of breath at any time. You suddenly start to sweat, or your skin gets clammy. You feel sick to your stomach (nauseous). You throw up (vomit). You suddenly feel lightheaded or dizzy. You feel very weak or tired. Your heart starts to beat fast, or it feels like it is skipping beats. These symptoms may be an emergency. Do not wait to see if the symptoms will go away. Get medical help right away. Call your local emergency services (911 in the [place] Do not drive yourself to the hospital. Summary Chest pain can be caused by many different conditions. The cause may be serious and need treatment right away. If you have chest pain, see your doctor right away. Follow your doctor's instructions for taking medicines and making lifestyle changes. Keep all follow-up visits as told by your doctor. This includes visits for any further testing if your chest pain does not go away. Be sure to know the signs that show that your condition has become worse. Get help right away if you have these symptoms. This information is not intended to replace advice given to you by your health care provider. Make sure you discuss any questions you have with your health care provider. Document Released: 02/12/2009 Document Revised: 02/27/2019 Document Reviewed: 02/27/2019 [employer] Patient Education 2020 [employer] Follow Up Care 09/21/2022 10:06:42 With:[facility] Rehabilitation Address: [address] [place] [address]- When: Unknown Comments:Cardiac Rehab will call you for an appointment in 1-2 weeks.Information given. Please call us with any questions. [phone] With:SHON TYREE Address: [address] [place] [address]- [phone] Business (1) When:1-2 days With:MARGARITO RIVERO APRN-[facility] Address: [address] [place] [address] [address] [place] [address]- When:11/08/2022 10:30:00 With:MARGARITO RIVERO APRN-[facility] Address: [address] [place] [address] [address] [place] [address]- When:01/29/2023 09:00:00 [facility] 10-13-2022 Discharge summary Date of Service 10/13/2022 Discharge Diagnosis PCI-LAD Hospital Course This is a 76-year-old male with prior history of coronary artery disease status post CABG in 2009 with RICHMOND to LAD, D1, left radial artery as a free graft to marginal branch of circumflex and vein graft to PDA and acute marginal branch of RCA, hypertension, hyperlipidemia who presented to the hospital for elective left heart catheterization. Patient was recently admitted to the hospital for non-ST elevation NE. He had gone heart catheterization that showed 100% occlusion of circumflex 100% occlusion of RCA and 80% stenosis of mid LAD. He underwent PCI to circumflex and RCA. He presented on 10/12/2022 for staged PCI to LAD. He underwent PCI. Course complicated with a small dissection. Patient remained hemodynamically stable with echocardiogram only showing trace effusion. He remained symptom-free and was observed overnight. Today he will be discharged home. Allergies Imdur (Muscle ache) Plavix (Muscle ache) Statins (muscle and joint pain) Consults No qualifying data available. Objective Vitals and Measurements T: 36.7 C (Oral) TMIN: 36.4 C (Axillary) TMAX: 36.8 C (Oral) HR: 62(Monitored) RR: 18 BP: 160/92 BP: 192/82(Line) SpO2: 95% WT: 109.7 kg Weight Current Weight Dosing Weight: 112 kg (10/12/22) Current Weight: 109.7 kg (10/13/22) Dosing Weight: 112 kg (10/12/22) General Appearance: in no acute distress. Alert. EENT: No thyroid disease. ocular movements intact Cardiac: RRR. S1 and S2. no murmurs or rubs. Lungs: Clear breath sounds. No wheeze or crackles noted. Abdomen: soft. non tender. bowel sounds audible Musculoskeletal: [strength and sensation intact Neurological: alert and oriented. Skin: warm. dry 12 point ROS reviewed and negative unless stated above. Code Status Code Status - Ordered -- 10/12/22 9:33:00 EST, Full Code, Constant Order Admission Date 10/12/2022 Discharge Date 10/13/2022 Medications Unchanged aspirin (aspirin 81 mg oral tablet (chewable))1 tab(s) by mouth every day. ezetimibe (ezetimibe 10 mg oral tablet)1 tab(s) by mouth once a day. Refills: 3. furosemide (furosemide 20 mg oral tablet)1 tab(s) by mouth once a day. As needed for swelling. Refills: 0. metoprolol (Metoprolol Tartrate 50 mg oral tablet)1 tab(s) by mouth once a day. Refills: 3. ticagrelor (ticagrelor 90 mg oral tablet)1 tab(s) by mouth every 12 hours. Refills: 3. triamcinolone topical (triamcinolone 0.1% topical paste)1 application Topical two (2) times a day. 16 oz. jar. Apply to Armpit and Groin as needed for itching. Refills: 1. Follow Up Follow Up with MARGARITO RIVERO When 01/29/2023 09:00 AM EDT [facility] [address] [facility] [address] [place], [place] [address]- Follow Up with MARGARITO RIVERO When 11/08/2022 10:30 AM EST Where: [address] [facility] [address] [place], [place] [address]- Follow Up with Cardiac Rehabilitation When Why: Cardiac Rehab will call you for an appointment in 1-2 weeks.Information given. Please call us with any questions. [phone] Where: [address] [place] [address]- Follow Up with SHON HERRERA When Within 1-2 days Where: [address] [place] [address]- [phone] Business (1) Follow Up Appointments No qualifying data available. Follow Up Labs/Studies Discharge Labs No Follow-up Labs Discharge Studies No Follow-up Studies Discharge Diet Discharge Diet - Ordered -- No changes were made to your diet during your hospital stay. Please resume your pre hospitalization diet on discharge., 10/13/22 15:05:00 EST Discharge Activity Discharge Activity - Ordered -- Other, Do not lift greater than 5 pounds for 7 to 10 days., 10/13/22 15:05:00 EST Condition on Discharge stable Readmission Risk/Palliative Score No qualifying data available. Discharge Disposition home Information Provided To patient Digitally Signed by KASSI MARTIN MD on 10/13/2022 03:08 PM [facility] 10-13-2022 Note Discharge Instructions Thank you for allowing [facility] to assist you with your healthcare needs. The following is important discharge information regarding your hospital visit. Your Care Team SHON HERRERA DO What to do next Scheduled Follow-Up Appointments Appointment Type When With Where Contact InformationPC OV 10/30/2022 10:35 AM EST SHON HERRERA DO [facility] CV OV 11/08/2022 10:30 AM EST MARGARITO RIVERO [facility] CV OV 01/29/2023 09:00 AM EDT MARGARITO RIVERO [facility] DB Diabetic Individual Visit ([facility]OH) 02/19/2023 08:30 AM EDT [facility] URO OV 20 min 03/16/2023 10:20 AM EDT SIRENA DUNAWAY [facility] Follow Up Appointments Follow Up with MARGARITO RIVERO When 01/29/2023 09:00 AM EDT [facility] [address] [address] [place] [address]- Follow Up with MARGARITO RIVERO When 11/08/2022 10:30 AM EST [facility] [address] [facility] [address] [place] [address]- Follow Up with Cardiac Rehabilitation When Why: Cardiac Rehab will call you for an appointment in 1-2 weeks.Information given. Please call us with any questions. [phone] Where: [address] [place] [address]- Follow Up with SHON HERRERA When Within 1-2 days Where: [address] [place] [phone] Business (1) The Following Activity and Diet Have Been Ordered for You Discharge Activity - Ordered -- Other, Do not lift greater than 5 pounds for 7 to 10 days., 10/13/22 15:05:00 EST Discharge Diet - Ordered -- No changes were made to your diet during your hospital stay. Please resume your pre hospitalization diet on discharge., 10/13/22 15:05:00 EST The Following Equipment Has Been Ordered for You Home Equipment - None No qualifying data available. The Following Treatments Have Been Ordered for You Discharge Labs No qualifying data available. Discharge Radiology No qualifying data available. Other Therapies No qualifying data available. Post Acute Orders No qualifying data available. Someone Will Contact You Regarding These Home Health Referrals No home referrals have been ordered for you. No one will call you. Allergies Imdur (Muscle ache) Plavix (Muscle ache) Statins (muscle and joint pain) Medications Please ask your primary doctor or pharmacist before taking any other medication not listed, including over the counter drugs, herbal medications, vitamins and or supplements as they may interact with your home medications. What How Much When Instructions Last Dose Unchanged aspirin (aspirin 81 mg oral tablet (chewable)) 1 tab(s) by mouth Every day Unchanged ezetimibe (ezetimibe 10 mg oral tablet) 1 tab(s) by mouth Once a day Unchanged furosemide (furosemide 20 mg oral tablet) 1 tab(s) by mouth Once a day As needed for swelling Unchanged metoprolol (Metoprolol Tartrate 50 mg oral tablet) 1 tab(s) by mouth Once a day Unchanged ticagrelor (ticagrelor 90 mg oral tablet) 1 tab(s) by mouth Every 12 hours Unchanged triamcinolone topical (triamcinolone 0.1% topical paste) 1 application Topical Two (2) times a day 16 oz. jar. Apply to Armpit and Groin as needed for itching Please take this list to your next doctor s visit. Bring all medications you take, including over the counter medications, herbals and other supplements with you to your doctor s visit. Patients and families are reminded to discard old lists and to update any records with all medication providers or retail pharmacies. Education Materials HEART CATHETERIZATION/PCI (groin) Discharge Instructions DIET INSTRUCTIONS Drink plenty of fluids for the next 48 hours to help your kidneys flush the heart cath dye out of your system ACTIVITIES May go up and down stairs CAREFULLY Do not drive car FOR 24 HOURS No heavy lifting GREATER THAN 10 POUNDS or pushing or straining FOR 2 DAYS Someone must stay with you at home after the procedure until the morning. BATHING/SHOWERING May tub bathe in 1 week May shower tomorrow WOUND CARE You will go home with a Band-Aid over your heart cath site. Keep a Band-Aid on for the next 24 hours and then leave open to air. Some degree of bruising and tenderness is normal around the heart cath site. It will take a while for any bruising to completely resolve. Keep your site clean and dry. You need to report the following to your low voltage technician: Any draining or oozing from the site Any swelling at the site Any increased pain or tenderness at the site Any numbness in your leg where the procedure was done Any signs of infection IMPORTANT! CALL 911 FOR ANY BLEEDING OR SWELLING AT THE PROCEDURE SITE If there is any large amount of bleeding, you or someone else need to apply direct pressure to the site (just like the nurse did in the heart lab after your procedure). It is very important that you hold constant pressure. Do not release the pressure to check if the bleeding has stopped. You then need to be transported to the nearest emergency room. WATCH FOR SIGNS OF INFECTION (Usually appears 36-48 hours after surgery) A temperature above 100.5 Redness or swelling Increased pain Foul odor or drainage If you have any questions, please call your doctor at the number listed on your follow up instructions. Follow all instructions given to you by your physician Document Released: 08/27/2006 Document Revised: 08/13/2013 Document Reviewed: 08/28/2014 [employer] Patient Information 2015 viaCycle. This information is not intended to replace advice given to you by your health care provider. Make sure you discuss any questions you have with your health care provider. Nonspecific Chest Pain Chest pain can be caused by many different conditions. Some causes of chest pain can be life-threatening. These will require treatment right away. Serious causes of chest pain include: Heart attack. A tear in the body's main blood vessel. Redness and swelling (inflammation) around your heart. Blood clot in your lungs. Other causes of chest pain may not be so serious. These include: Heartburn. Anxiety or stress. Damage to bones or muscles in your chest. Lung infections. Chest pain can feel like: Pain or discomfort in your chest. Crushing, pressure, aching, or squeezing pain. Burning or tingling. Dull or sharp pain that is worse when you move, cough, or take a deep breath. Pain or discomfort that is also felt in your back, neck, jaw, shoulder, or arm, or pain that spreads to any of these areas. It is hard to know whether your pain is caused by something that is serious or something that is not so serious. So it is important to see your doctor right away if you have chest pain. Follow these instructions at home: Medicines Take lcip-loc-vfzsrid and prescription medicines only as told by your doctor. If you were prescribed an antibiotic medicine, take it as told by your doctor. Do not stop taking the antibiotic even if you start to feel better. Lifestyle Rest as told by your doctor. Do not use any products that contain nicotine or tobacco, such as cigarettes, e-cigarettes, and chewing tobacco. If you need help quitting, ask your doctor. Do not drink alcohol. Make lifestyle changes as told by your doctor. These may include: ? Getting regular exercise. Ask your doctor what activities are safe for you. ? Eating a heart-healthy diet. A diet and swine nutritionist (dietitian) can help you to learn healthy eating options. ? Staying at a healthy weight. ? Treating diabetes or high blood pressure, if needed. ? Lowering your stress. Activities such as yoga and relaxation techniques can help. General instructions Pay attention to any changes in your symptoms. Tell your doctor about them or any new symptoms. Avoid any activities that cause chest pain. Keep all follow-up visits as told by your doctor. This is important. You may need more testing if your chest pain does not go away. Contact a doctor if: Your chest pain does not go away. You feel depressed. You have a fever. Get help right away if: Your chest pain is worse. You have a cough that gets worse, or you cough up blood. You have very bad (severe) pain in your belly (abdomen). You pass out (faint). You have either of these for no clear reason: ? Sudden chest discomfort. ? Sudden discomfort in your arms, back, neck, or jaw. You have shortness of breath at any time. You suddenly start to sweat, or your skin gets clammy. You feel sick to your stomach (nauseous). You throw up (vomit). You suddenly feel lightheaded or dizzy. You feel very weak or tired. Your heart starts to beat fast, or it feels like it is skipping beats. These symptoms may be an emergency. Do not wait to see if the symptoms will go away. Get medical help right away. Call your local emergency services (911 in the [place] Do not drive yourself to the hospital. Summary Chest pain can be caused by many different conditions. The cause may be serious and need treatment right away. If you have chest pain, see your doctor right away. Follow your doctor's instructions for taking medicines and making lifestyle changes. Keep all follow-up visits as told by your doctor. This includes visits for any further testing if your chest pain does not go away. Be sure to know the signs that show that your condition has become worse. Get help right away if you have these symptoms. This information is not intended to replace advice given to you by your health care provider. Make sure you discuss any questions you have with your health care provider. Document Released: 02/12/2009 Document Revised: 02/27/2019 Document Reviewed: 02/27/2019 [employer] SOFTWARE Patient Education 2020 [employer] Additional Information VACCINATE! IT SAVES LIVES! Members of the community who have not yet received the COVID-19 vaccine and would like to receive it can visit one of [facility] vaccine clinics. There are many vaccine clinic locations within the [facility]. For locations and available times, please visit [email or web address] [email or web address] It is important to note that some COVID mobile vaccine clinics are held outdoors and may be canceled in rainy or stormy conditions. To learn more about pediatric vaccinations (ages 5-11), we invite you to visit the [facility] webpage. https://[email or web address]/pag es/0216-Cdmvb-Nvclzpxxthq-Frequent xj-Njdfv-Ltgjzawop.html To learn more about the COVID-19 vaccine, we invite you to visit the [facility] website for a list of frequently asked questions. [email or web address] ently_[email or web address]-Questions.pdf [facility] [employer] Patient Portal Access Instructions: Stay connected with your healthcare team and access your personal medical information anytime with the [facility] [employer] Patient Portal.If you would like a full copy of your medical records, please contact the [facility] Medical Records Department, Sunday through Sunday between 8a.m. and 4:30p.m. Please follow the directions below to access the portal: 1.Access the email account you provided upon registration to the [facility].2.Look for an invitation email from [facility].3.Open the email and access the invitation link: Accept Invitation to [employer]4.Fill in the required cardenas to create your account. Sign into [email or web address] with your username and password that you created in the above steps to stay up to date. You can then view a summary of results, a summary of your visits, and the ability to download your summaries to your computer or send the information securely to a physician. Remember that your healthcare information is confidential, so carefully consider who you will allow to register on the [facility] [employer] Patient Portal for access to your information. You can also access the [employer] Patient Portal on the [employer] estrellita. Simply click on Health Records under Health Data and then click on the [employer] logo. HOW TO SAFELY DISPOSE OF PRESCRIPTION MEDICATIONS Please use one of the following methods to safely dispose of your unused medications. 1.Use a drug disposal kit: the drug disposal pouch allows you to safely discard your old and unused drugs. Ask your nurse to give you one when you are discharged.2.Visit a local take-back location: Many local pharmacies and police departments have programs that collect old and unwanted prescription drugs. Call your local pharmacy or go to [email or web address] [employer]/[id number] to find one close to you.3.Make use of household items: Use cat litter or old coffee grounds to dispose medications if other options are not available. Mix your drugs with these household products, seal them in an airtight container and throw it into the garbage. Call [facility]: [phone] to be sure your drugs can be disposed of in this way. Some medicines may require a different approach.4.Never flush your medications down the toilet. IF YOU HAVE BEEN PRESCRIBED AN OPIOID FOR PAIN If you have been prescribed an opioid (such as hydrocodone, oxycodone or morphine), it is critical to understand the possible side effects and risks of opioid pain medications. Even when taken as directed, opioids can have several side effects including: Tolerance, meaning you might need to take more of a medication for the same pain relief. Nausea, vomiting and/or constipation. Sleepiness, dizziness, dry mouth, confusion, depression or itching. Physical dependence, meaning you have withdrawal symptoms when a medication is stopped, can develop within a few days. KNOW YOUR RESPONSIBILITIES It is important to know exactly how much and how often to take the opioid pain medications you are prescribed. Never take opioids in higher amounts or more often than prescribed. Do not combine opioids with alcohol or other drugs that cause drowsiness, such as benzodiazepines, also known as benzos, including diazepam and alprazolam, muscle relaxants or sleep aids. Never sell or share prescription opioids. This is illegal. Store opioids in a secure place and out of reach of others (including children, family, friends and visitors). The last page of this document has been signed and retained as a CHART COPY. Signatures Patient Education Materials 3- Heart Cath/PCI groin (06/2018)(CUSTOM) Nonspecific Chest Pain, Adult, [id number] Medication Leaflets My discharge plan and instructions have been reviewed and explained to me and I,AURE PURDY understand my current condition and have read and understand these discharge instructions. I have received a written copy of the plan/instructions. If I have questions, I am aware that I should contact my doctor. 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 Patient was recently admitted to the hospital for non-ST elevation NE. He had gone heart catheterization that showed 100% occlusion of circumflex 100% occlusion of RCA and 80% stenosis of mid LAD. He underwent PCI to circumflex and RCA. He presented on 10/12/2022 for staged PCI to LAD. He underwent PCI. Course complicated with a small dissection. Patient remained hemodynamically stable with echocardiogram only showing trace effusion. He remained symptom-free and was observed overnight. Today he will be discharged home. Allergies Imdur (Muscle ache) Plavix (Muscle ache) Statins (muscle and joint pain) Consults No qualifying data available. Objective Vitals and Measurements T: 36.7 C (Oral) TMIN: 36.4 C (Axillary) TMAX: 36.8 C (Oral) HR: 62(Monitored) RR: 18 BP: 160/92 BP: 192/82(Line) SpO2: 95% WT: 109.7 kg Weight Current Weight Dosing Weight: 112 kg (10/12/22) Current Weight: 109.7 kg (10/13/22) Dosing Weight: 112 kg (10/12/22) General Appearance: in no acute distress. Alert. EENT: No thyroid disease. ocular movements intact Cardiac: RRR. S1 and S2. no murmurs or rubs. Lungs: Clear breath sounds. No wheeze or crackles noted. Abdomen: soft. non tender. bowel sounds audible Musculoskeletal: [strength and sensation intact Neurological: alert and oriented. Skin: warm. dry 12 point ROS reviewed and negative unless stated above. Code Status Code Status - Ordered -- 10/12/22 9:33:00 EST, Full Code, Constant Order Admission Date 10/12/2022 Discharge Date 10/13/2022 Medications Unchanged aspirin (aspirin 81 mg oral tablet (chewable))1 tab(s) by mouth every day. ezetimibe (ezetimibe 10 mg oral tablet)1 tab(s) by mouth once a day. Refills: 3. furosemide (furosemide 20 mg oral tablet)1 tab(s) by mouth once a day. As needed for swelling. Refills: 0. metoprolol (Metoprolol Tartrate 50 mg oral tablet)1 tab(s) by mouth once a day. Refills: 3. ticagrelor (ticagrelor 90 mg oral tablet)1 tab(s) by mouth every 12 hours. Refills: 3. triamcinolone topical (triamcinolone 0.1% topical paste)1 application Topical two (2) times a day. 16 oz. jar. Apply to Armpit and Groin as needed for itching. Refills: 1. Follow Up Follow Up with MARGARITO RIVERO When 01/29/2023 09:00 AM EDT [facility] [address] [place] [address]- Follow Up with MARGARITO RIVERO When 11/08/2022 10:30 AM EST Where: [address] [place], [place] [id number] Follow Up with Cardiac Rehabilitation When Why: Cardiac Rehab will call you for an appointment in 1-2 weeks.Information given. Please call us with any questions. [phone] Where: [address] [place] [address]- Follow Up with SHON HERRERA When Within 1-2 days Where: [address] [place] [address]- [phone] Business (1) Follow Up Appointments No qualifying data available. Follow Up Labs/Studies Discharge Labs No Follow-up Labs Discharge Studies No Follow-up Studies Discharge Diet Discharge Diet - Ordered -- No changes were made to your diet during your hospital stay. Please resume your pre hospitalization diet on discharge., 10/13/22 15:05:00 EST Discharge Activity Discharge Activity - Ordered -- Other, Do not lift greater than 5 pounds for 7 to 10 days., 10/13/22 15:05:00 EST Condition on Discharge stable Readmission Risk/Palliative Score No qualifying data available. Discharge Disposition home Information Provided To patient Digitally Signed by KASSI MARTIN MD on 10/13/2022 03:08 PM [facility] 10-13-2022 Note Chief Complaint Transition plan Transitional Action Points Patient had his procedure yesterday PCI with stents He states he has been up ambulating independently in his room he is from home independently Recommending him to transition home with close follow-up with providers he has no insecurities with this. He states he still drives Assessment/Plan CAD Age-related debility Readmission Risk Points Age greater than 65 CAD Hypertension Hyperlipidemia Full code History of Present Illness Patient is a 76-year-old male admitted for heart cath for staged PCI to LAD performed on 2 . He reports he had 3 stents placed. This is a second hospitalization in the last 4 months. Patient lying in bed today, reports he lives alone, is independent at baseline and does still drive. He does not utilize a device for mobility. Reports he has been up walking around the room and feels good Review of Symptoms General: Denies fever or chills feels good HEENT: Denies blurry vision, headache, congestion Respiratory: Denies shortness of breath or cough Cardio: Denies chest pain or palpations GI: Denies abdominal pain or change in appetite Musculoskeletal: Denies injury Neuro: Denies dizziness or confusion Psych: Denies depression or anxiety Physical Exam General: No acute distress, lying in bed, appears comfortable HEENT: Oral mucosa moist, eyes following movement Extremities: No lower extremity edema, pulses present Musculoskeletal: Weakness present Neurological: No tremors or focal deficit Psych: mood cooperative Cognition: Alert and oriented Vitals Signs(Last 24 hrs)__Last Charted Minimum Ma ximum Temp36.8(OCT 13 04:00)36.8(OCT 13 04:00)36.8(OCT 12 06:40) Heart Rate67(OCT 13 04:00)L 56(OCT 12 09:45)94(OCT 12 12:00) Resp Rate18(OCT 13 04:00)16(OCT 12 21:14)20(OCT 12 06:40) SBPH 154(OCT 13 04:00)H 142(OCT 13 01:15)H 194(OCT 12 10:25) DBP80(OCT 13 04:00)68(OCT 12 18:30)87(OCT 12 06:40) Problem List/ Past Medical History CAD IN [place] COPD, mild Carotid bruit Chronic low back pain Controlled diabetes mellitus DDD (degenerative disc disease), lumbar ESSENTIAL HYPERTENSION Hyperlipemia Hypertension NE (myocardial infarction) JEREMIAS (OBSTRUCTIVE SLEEP APNEA) Preop cardiovascular exam Radicular pain of right lower extremity S/P CABG (CORONARY ARTERY BYPASS GRAFT) SOB (SHORTNESS OF BREATH) Syncope and collapse Systolic murmur No qualifying data available. Procedure/ Surgical History Arthroplasty of ankle with implant: 11/08/18 THR - Total hip replacement: 10/08/17 Arthroplasty of hip, total, with use of methyl methacrylate: 06/09/15 Circumcision: 09/22/00 Stent Medication List Active Medications Ordered acetaminophen: 650 mg, 2 tab(s), Oral, q6h, PRN: Headache. albuterol-ipratropium: 3 mL, Inhalation, q4hRT, PRN: decreased breath sounds. aspirin: 81 mg, 1 tab(s), Oral, qDayM. morphine: 2 mg, 1 mL, IV Push, q2h, PRN: Pain, scale 7-10. .PharmacyCommunication: 1 EA, Miscellaneous, Unscheduled. Sodium Chloride 0.9% intravenous solution: 500 mL, IV Bolus, AsDirected, PRN: Other (see order comments). Sodium Chloride 0.9% intravenous solution 1,000 mL: 20 mL/hr, Intravenous. ticagrelor: 90 mg, 1 tab(s), Oral, q12h. Prescribed ezetimibe: 10 mg, 1 tab(s), Oral, qDay, 90 tab(s), 3 Refill(s). furosemide: 20 mg, 1 tab(s), Oral, qDay, As needed for swelling, 30 tab(s), 0 Refill(s). metoprolol: 50 mg, 1 tab(s), Oral, qDay, 90 tab(s), 3 Refill(s). ticagrelor: 90 mg, 1 tab(s), Oral, q12h, 60 tab(s), 3 Refill(s). triamcinolone topical: 1 estrellita, Topical, BID, 16 oz. jar. Apply to Armpit and Groin as needed for itching, 454 gram(s), 1 Refill(s). Documented aspirin: 81 mg, 1 tab(s), Oral, Daily, 0 Refill(s). Medications Inactivated in the Last 72 Hours aspirin: 325 mg, 1 tab(s), Oral, PREOP pharm. atropine: Miscellaneous, Once. fentaNYL: Miscellaneous, Once. heparin: Miscellaneous, Once. heparin: Miscellaneous, Once. hydrALAZINE: 5 mg, 0.25 mL, IV Push, Once. hydrALAZINE: Miscellaneous, Once. lidocaine: Miscellaneous, Once. midazolam: Miscellaneous, Once. morphine: 2 mg, 1 mL, IV Push, q3h, PRN: Pain, scale 7-10. nitroGLYcerin: Miscellaneous, Once. Allergies Imdur (Muscle ache) Plavix (Muscle ache) Statins (muscle and joint pain) Social Hx Alcohol Details: Use: Never. 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 Home/Environment Details: Living situation: Home/Independent. lives alone - self Primary Gut Carrier:. Nutrition/Health Details: Caffeine intake amount: Coffee x 1/day. Sexual Details: Sexually active: Yes. Number of lifetime partners: 2. Self described orientation: Straight or heterosexual. Substance Abuse Details: Use: Never. Tobacco Details: Tobacco Use: Former smoker, quit more than 30 days ago. Stopped at age: 57 Years.; Comment(s): No smoke exposure Family Medical Hx Mother (): Cancer; Heart attack; Rheumatoid arthritis Father: Asthma; Hemophilia Sister (): Breast cancer Code Status Code Status - Ordered -- 10/12/22 9:33:00 EST, Full Code, Constant Order I Tennille Otto LPN, am scribing for Amparo Zamorano NP, in the presence of Amparo Zamorano. I Amparo Zamorano NP, personally performed the services described in this documentation, as described by Tennille Otto LPN in my presence and it is both accurate and complete. This document is transcribed using voice recognition software may contain typographical errors. Digitally Signed by AMPARO ZAMORANO on 10/13/2022 01:46 PM [facility] 08-29-2022 Discharge summary Date of Service 08/29/2022 Discharge Diagnosis Stenosis of other cardiac prosthetic devices, implants and grafts, initial encounter (T82.857A - ICD-10-CM) Non-ST elevation (NSTEMI) myocardial infarction (I21.4 - ICD-10-CM) Acute kidney failure, unspecified (N17.9 - ICD-10-CM) Chronic kidney disease, stage 3 unspecified (N18.30 - ICD-10-CM) Type 2 diabetes mellitus with diabetic chronic kidney disease (E11.22 - ICD-10-CM) Hypertensive chronic kidney disease with stage 1 through stage 4 chronic kidney disease, or unspecified chronic kidney disease (I12.9 - ICD-10-CM) Presence of aortocoronary bypass graft (Z95.1 - ICD-10-CM) Atherosclerotic heart disease of [place] coronary artery without angina pectoris (I25.10 - ICD-10-CM) Hyperlipidemia, unspecified (E78.5 - ICD-10-CM) Obstructive sleep apnea (adult) (pediatric) (G47.33 - ICD-10-CM) Additional Orders: Other status: APTT Panel,08/30/22 5:01:00 EST, Next AM Draw (one day only), Blood, Once, Preferred Lab: [facility], Stop date 08/30/22 4:00:00 EST, Heparin IV(Cancel) Other status: BMP,08/29/22 5:01:00 EST, Next AM Draw (one day only), Blood, Once, Preferred Lab: [facility], Stop date 08/29/22 4:00:00 EST(Cancel) Other status: CBC,08/30/22 5:01:00 EST, Next AM Draw (one day only), Blood, Once, Preferred Lab: [facility], Stop date 08/30/22 4:00:00 EST(Cancel) Other status: CMP,08/30/22 5:01:00 EST, Next AM Draw (one day only), Blood, Once, Preferred Lab: [facility], Stop date 08/30/22 4:00:00 EST(Cancel) Other status: CMP,08/29/22 5:01:00 EST, Next AM Draw (one day only), Blood, Once, Preferred Lab: [facility], Stop date 08/29/22 4:00:00 EST(Complete) Other status: Discharge,08/29/22 11:34:00 EST, Discharged to: Home(Complete) Ordered: Discharge Activity,Activity As Tolerated, 08/29/22 11:34:00 EST Ordered: Discharge Diet,Type of Diet: Cardiac, No changes were made to your diet during your hospital stay. Please resume your pre hospitalization diet on discharge., 08/29/22 11:34:00 EST Other status: Magnesium Level,08/30/22 5:01:00 EST, Next AM Draw (one day only), Blood, Once, Preferred Lab: [facility], Stop date 08/30/22 4:00:00 EST(Cancel) Other status: Magnesium Level,08/29/22 5:01:00 EST, Next AM Draw (one day only), Blood, Once, Preferred Lab: [facility], Stop date 08/29/22 4:00:00 EST(Complete) Discontinued: Repatha 140 mg/mL subcutaneous solution,Dose : 140 mg =, Subcutaneous, q2wk, # 2 EA, 0 Refill(s), Pharmacy: [facility] #[id number], 167.6, cm, 08/27/22 14:19:00 EST, Height Ordered: Repatha 140 mg/mL subcutaneous solution,Dose : 140 mg =, Subcutaneous, q2wk, # 2 EA, 6 Refill(s), Pharmacy: [facility] #[id number], 167.6, cm, 08/27/22 14:19:00 EST, Height Discontinued: evolocumab 140 mg/mL subcutaneous solution,Dose : 140 mg =, Subcutaneous, q2wk, # 2 EA, 6 Refill(s), Pharmacy: [facility] #[id number], 167.6, cm, 08/27/22 14:19:00 EST, Height Discontinued: meloxicam 15 mg oral tablet,Dose : 15 mg = 1 tab(s), Oral, qDay, Take with food/milk, # 30 tab(s), 0 Refill(s) Discontinued: metoprolol succinate 25 mg oral TABLET extended release,Start: 08/28/22 15:06:00 EST, Dose = 25 mg, = 1 tab(s), Oral, qDayM, give with food, 0, 08/28/22 15:06:00 EST Other status: potassium bicarbonate 10 mEq oral tablet, effervescent,Start: 08/29/22 8:00:00 EST, Dose = 10 mEq, = 1 tab(s), Oral, Once, Stop: 08/29/22 8:00:00 EST, 08/29/22 7:56:00 EST(Complete) Ordered: ticagrelor 90 mg oral tablet,Dose : 90 mg = 1 tab(s), Oral, q12h, # 60 tab(s), 3 Refill(s), [facility]: [id number], 167.6, cm, 08/27/22 14:19:00 EST, Height Hospital Course Patient is a 76-year-old man with a past medical history of coronary artery disease status post CABG [2009], type 2 diabetes mellitus [diet-controlled], hypertension [on amlodipine and metoprolol tartrate], hyperlipidemia [on Zetia] and JEREMIAS on CPAP at night who presented with chest pain. The pain was midsternal and localized, constant described as pressure-like in nature at that time he was 4/10 in severity that later increased to 7/10 in severity. In the [facility] ED patient received nitro glycerin and morphine which helped relieve the pain the severity of 4/10. Cardiac history: Patient follows with cardiology and last visit was 07/24 with Nj MONTENEGRO, for routine follow-up. Patient had CABG in 2009 [RICHMOND to LAD and second diagonal, left radial artery to circumflex, SVG's to PDA, acute marginal branch RCA. Last echo 08/11/2022 showed a ejection fraction of 60 to 65% with normal wall motion and no regional wall motion abnormalities. Aortic valve mild stenosis, mitral valve annulus is moderately calcified, right atrium mildly dilated with a right atrial pressure of 3 mmHg. Stress test 10/06/2019 showed no ischemia and normal EF Carotid Doppler 12/29/2021 bilateral carotid duplex was performed and showed mild 1 to 39% stenosis of bilateral internal carotid arteries and normal flow to bilateral vertebral arteries. In [facility] ED: Vitals BP 105/57, heart rate 64, RR 20, temperature 36.8, SPO2 100% on 2 L of oxygen Labs: CBC WBC 10.7, Hb 15.7, hematocrit 46.4 and platelets 219. BMP sodium 139, potassium 4.2, chloride 101, CO2 25, BUN 19, creatinine 1.46, glucose 205. Troponin 10,662.3 EKG showed normal sinus rhythm with a ventricular rate of 67 bpm, RBBB and LAFB and lateral wall ST depression changes. Repeat EKG done at [facility] showed no specific ST segment changes. Patient was treated with nitroglycerin and morphine in the ED for chest pain. Patient was admitted to [facility]CC[facility] service for further evaluation and management. During patient stay at [facility], he was treated as NSTEMI and acute kidney injury. His troponins were high and EKG showed normal sinus rhythm, nonspecific ST segment changes. He underwent heart cath on 08/28, had stents placed to left circumflex artery and right coronary artery. He will also need stent to LAD. Patient had echocardiogram done on 08/28, results showed EF 50%, diastolic dysfunction present. On the day of discharge, patient was hemodynamically stable and fair clinically. He will be discharged back to home. Patient was advised to start taking evolocumab and ticagrelor. He will continue to take aspirin, ezetimibe, Lasix, glipizide, metoprolol. Patient was advised to follow-up with Dr. Early in 5 to 7 days after discharge. He needs to follow-up with Dr. Calderon after discharge and follow-up with cardiac rehab after discharge. Patient was educated that if his condition worsens, he needs to go to ED or call PCP immediately. Allergies Imdur (Muscle ache) Plavix (Muscle ache) Statins (muscle and joint pain) Procedures Cath with stent placement - 08/28 Imaging Results and Diagnostics XR Chest 1 View Result Date: August 27, 2022 Verified By: PRABHA HAMMOND MD CLINICAL STATEMENT: IMPRESSION: No acute radiographic findings. Physical Exam Vitals and Measurements T: 36.9 C (Oral) TMIN: 36.6 C (Oral) TMAX: 36.9 C (Oral) HR: 74(Monitored) RR: 18 BP: 128/58 SpO2: 94% Weight Dosing Weight: 104.5 kg (08/27/22) General Appearance: Patient comfortably lying on bed, not in acute distress on 2 L of oxygen via nasal cannula. Looks stated age. Head: Normocephalic, atraumatic EENT: PERRLA, mucous membranes pink and moist Neck: Supple, no JVD, no mass Cardiac: s1s2,RRR, no murmurs or rubs or gallops Lungs: Clear to auscultation bilaterally, no wheeze or rhonchi or crackles Abdomen: Soft , Nontender, no organomegaly, bowel sounds heard Musculoskeletal: Full ROM , no gross deformities Extremities: No rash or ulcers or pedal edema Neurological: Alert, oriented x 3, grossly no focal neurological deficits Skin: No rash or ulcers Psychiatric: Mood appropriate Pending Labs and Studies none Code Status full code Admission Date 08/27/2022 Discharge Date 08/29/2022 Patient Instructions Mr. Purdy, you were in the hospital for chest pain. Your troponins were high and EKG showed normal sinus rhythm, nonspecific ST segment changes. You were treated as NSTEMI, with acute kidney injury. You were treated with heparin IVP. You underwent heart cath on 08/28, and you had stents placed to left circumflex artery and right coronary artery. You will also need stent to LAD. You had echocardiogram done on 08/28, results showed EF 50%, diastolic dysfunction present. You are ready to be discharged back to home. Please start taking evolocumab. Please start taking ticagrelor. Please continue take to take aspirin, ezetimibe, Lasix, glipizide, metoprolol. Please follow-up with Dr. Early in 5 to 7 days after discharge. Follow-up with Dr. Calderon after discharge. Please follow-up with cardiac rehab after discharge. If your condition worsens, please go to ED or call your PCP immediately. Medications New Prescription evolocumab (Repatha 140 mg/mL subcutaneous solution)140 Milligram Subcutaneous every other week. Refills: 6. ticagrelor (ticagrelor 90 mg oral tablet)1 tab(s) by mouth every 12 hours. Refills: 3. Unchanged aspirin (aspirin 81 mg oral tablet (chewable))1 tab(s) by mouth every day. ezetimibe (ezetimibe 10 mg oral tablet)1 tab(s) by mouth once a day. furosemide (furosemide 20 mg oral tablet)1 tab(s) by mouth once a day. As needed for swelling. Refills: 0. glipiZIDE (glipiZIDE 2.5 mg oral tablet, extended release)1 tab(s) by mouth once a day with a meal. metoprolol (Metoprolol Tartrate 50 mg oral tablet)1 tab(s) by mouth once a day. Refills: 3. triamcinolone topical (triamcinolone 0.1% topical paste)1 application Topical two (2) times a day. 16 oz. jar. Apply to Armpit and Groin as needed for itching. Refills: 1. Discontinued amLODIPine (amLODIPine 10 mg oral tablet)1 tab(s) by mouth once a day. Refills: 3. meloxicam (meloxicam 15 mg oral tablet)1 tab(s) by mouth once a day. Take with food/milk. Follow Up Follow Up with JASEN EARLY MD When Within 5 to 7 days Where: [address] [facility] [address] [place] [address] [phone] Follow Up with RAFFAELE CALDERON MD When Within 3-5 days Where: [address] [facility] [address] [place] [address] [phone] Follow Up with SHON HERRERA When Why: PLEASE CALL THIS OFFICE TO SCHEDULE A HOSPITAL FOLLOW UP APPOINTMENT. Where: [address] [facility] [place] [address]- [phone] Business (1) Follow Up with Cardiac Rehab- [facility] When Why: The Cardiac Rehab department will call you to schedule you for phase 2. We left you a brochure with information about cardiac rehab. If you have any questions please call [phone]. Where: [address] [place] [address]- Discharge Diet Discharge Diet - Ordered -- Type of Diet: Cardiac, No changes were made to your diet during your hospital stay. Please resume your pre hospitalization diet on discharge., 08/29/22 11:34:00 EST Discharge Activity Discharge Activity - Ordered -- Activity As Tolerated, 08/29/22 11:34:00 EST Condition on Discharge fair Discharge Disposition home Information Provided To patient Digitally Signed by MORENITA DOUGHERTY MD on 08/29/2022 10:54 PM [facility] 08-29-2022 Discharge summary Date of Service 08/29/2022 Discharge Diagnosis Stenosis of other cardiac prosthetic devices, implants and grafts, initial encounter (T82.857A - ICD-10-CM) Non-ST elevation (NSTEMI) myocardial infarction (I21.4 - ICD-10-CM) Acute kidney failure, unspecified (N17.9 - ICD-10-CM) Chronic kidney disease, stage 3 unspecified (N18.30 - ICD-10-CM) Type 2 diabetes mellitus with diabetic chronic kidney disease (E11.22 - ICD-10-CM) Hypertensive chronic kidney disease with stage 1 through stage 4 chronic kidney disease, or unspecified chronic kidney disease (I12.9 - ICD-10-CM) Presence of aortocoronary bypass graft (Z95.1 - ICD-10-CM) Atherosclerotic heart disease of [place] coronary artery without angina pectoris (I25.10 - ICD-10-CM) Hyperlipidemia, unspecified (E78.5 - ICD-10-CM) Obstructive sleep apnea (adult) (pediatric) (G47.33 - ICD-10-CM) Additional Orders: Other status: APTT Panel,08/30/22 5:01:00 EST, Next AM Draw (one day only), Blood, Once, Preferred Lab: [facility], Stop date 08/30/22 4:00:00 EST, Heparin IV(Cancel) Other status: BMP,08/29/22 5:01:00 EST, Next AM Draw (one day only), Blood, Once, Preferred Lab: [facility], Stop date 08/29/22 4:00:00 EST(Cancel) Other status: CBC,08/30/22 5:01:00 EST, Next AM Draw (one day only), Blood, Once, Preferred Lab: [facility], Stop date 08/30/22 4:00:00 EST(Cancel) Other status: CMP,08/30/22 5:01:00 EST, Next AM Draw (one day only), Blood, Once, Preferred Lab: [facility], Stop date 08/30/22 4:00:00 EST(Cancel) Other status: CMP,08/29/22 5:01:00 EST, Next AM Draw (one day only), Blood, Once, Preferred Lab: [facility], Stop date 08/29/22 4:00:00 EST(Complete) Other status: Discharge,08/29/22 11:34:00 EST, Discharged to: Home(Complete) Ordered: Discharge Activity,Activity As Tolerated, 08/29/22 11:34:00 EST Ordered: Discharge Diet,Type of Diet: Cardiac, No changes were made to your diet during your hospital stay. Please resume your pre hospitalization diet on discharge., 08/29/22 11:34:00 EST Other status: Magnesium Level,08/30/22 5:01:00 EST, Next AM Draw (one day only), Blood, Once, Preferred Lab: [facility], Stop date 08/30/22 4:00:00 EST(Cancel) Other status: Magnesium Level,08/29/22 5:01:00 EST, Next AM Draw (one day only), Blood, Once, Preferred Lab: [facility], Stop date 08/29/22 4:00:00 EST(Complete) Discontinued: Repatha 140 mg/mL subcutaneous solution,Dose : 140 mg =, Subcutaneous, q2wk, # 2 EA, 0 Refill(s), Pharmacy: [facility] #[id number], 167.6, cm, 08/27/22 14:19:00 EST, Height Ordered: Repatha 140 mg/mL subcutaneous solution,Dose : 140 mg =, Subcutaneous, q2wk, # 2 EA, 6 Refill(s), Pharmacy: [facility] #[id number], 167.6, cm, 08/27/22 14:19:00 EST, Height Discontinued: evolocumab 140 mg/mL subcutaneous solution,Dose : 140 mg =, Subcutaneous, q2wk, # 2 EA, 6 Refill(s), Pharmacy: [facility] #[id number], 167.6, cm, 08/27/22 14:19:00 EST, Height Discontinued: meloxicam 15 mg oral tablet,Dose : 15 mg = 1 tab(s), Oral, qDay, Take with food/milk, # 30 tab(s), 0 Refill(s) Discontinued: metoprolol succinate 25 mg oral TABLET extended release,Start: 08/28/22 15:06:00 EST, Dose = 25 mg, = 1 tab(s), Oral, qDayM, give with food, 0, 08/28/22 15:06:00 EST Other status: potassium bicarbonate 10 mEq oral tablet, effervescent,Start: 08/29/22 8:00:00 EST, Dose = 10 mEq, = 1 tab(s), Oral, Once, Stop: 08/29/22 8:00:00 EST, 08/29/22 7:56:00 EST(Complete) Ordered: ticagrelor 90 mg oral tablet,Dose : 90 mg = 1 tab(s), Oral, q12h, # 60 tab(s), 3 Refill(s), [facility][id number], 167.6, cm, 08/27/22 14:19:00 EST, Height Hospital Course Patient is a 76-year-old man with a past medical history of coronary artery disease status post CABG [2009], type 2 diabetes mellitus [diet-controlled], hypertension [on amlodipine and metoprolol tartrate], hyperlipidemia [on Zetia] and JEREMIAS on CPAP at night who presented with chest pain. The pain was midsternal and localized, constant described as pressure-like in nature at that time he was 4/10 in severity that later increased to 7/10 in severity. In the [facility] ED patient received nitro glycerin and morphine which helped relieve the pain the severity of 4/10. Cardiac history: Patient follows with cardiology and last visit was 07/24 with Nj MONTENEGRO, for routine follow-up. Patient had CABG in 2009 [[place] to LAD and second diagonal, left radial artery to circumflex, SVG's to PDA, acute marginal branch RCA. Last echo 08/11/2022 showed a ejection fraction of 60 to 65% with normal wall motion and no regional wall motion abnormalities. Aortic valve mild stenosis, mitral valve annulus is moderately calcified, right atrium mildly dilated with a right atrial pressure of 3 mmHg. Stress test 10/06/2019 showed no ischemia and normal EF Carotid Doppler 12/29/2021 bilateral carotid duplex was performed and showed mild 1 to 39% stenosis of bilateral internal carotid arteries and normal flow to bilateral vertebral arteries. In [facility] ED: Vitals BP 105/57, heart rate 64, RR 20, temperature 36.8, SPO2 100% on 2 L of oxygen Labs: CBC WBC 10.7, Hb 15.7, hematocrit 46.4 and platelets 219. BMP sodium 139, potassium 4.2, chloride 101, CO2 25, BUN 19, creatinine 1.46, glucose 205. Troponin 10,662.3 EKG showed normal sinus rhythm with a ventricular rate of 67 bpm, RBBB and LAFB and lateral wall ST depression changes. Repeat EKG done at [facility] showed no specific ST segment changes. Patient was treated with nitroglycerin and morphine in the ED for chest pain. Patient was admitted to [facility] service for further evaluation and management. During patient stay at [facility], he was treated as NSTEMI and acute kidney injury. His troponins were high and EKG showed normal sinus rhythm, nonspecific ST segment changes. He underwent heart cath on 08/28, had stents placed to left circumflex artery and right coronary artery. He will also need stent to LAD. Patient had echocardiogram done on 08/28, results showed EF 50%, diastolic dysfunction present. On the day of discharge, patient was hemodynamically stable and fair clinically. He will be discharged back to home. Patient was advised to start taking evolocumab and ticagrelor. He will continue to take aspirin, ezetimibe, Lasix, glipizide, metoprolol. Patient was advised to follow-up with Dr. Early in 5 to 7 days after discharge. He needs to follow-up with Dr. Calderon after discharge and follow-up with cardiac rehab after discharge. Patient was educated that if his condition worsens, he needs to go to ED or call PCP immediately. Allergies Imdur (Muscle ache) Plavix (Muscle ache) Statins (muscle and joint pain) Procedures Cath with stent placement - 08/28 Imaging Results and Diagnostics XR Chest 1 View Result Date: August 27, 2022 Verified By: PRABHA HAMMOND MD CLINICAL STATEMENT: IMPRESSION: No acute radiographic findings. Physical Exam Vitals and Measurements T: 36.9 C (Oral) TMIN: 36.6 C (Oral) TMAX: 36.9 C (Oral) HR: 74(Monitored) RR: 18 BP: 128/58 SpO2: 94% Weight Dosing Weight: 104.5 kg (08/27/22) General Appearance: Patient comfortably lying on bed, not in acute distress on 2 L of oxygen via nasal cannula. Looks stated age. Head: Normocephalic, atraumatic EENT: PERRLA, mucous membranes pink and moist Neck: Supple, no JVD, no mass Cardiac: s1s2,RRR, no murmurs or rubs or gallops Lungs: Clear to auscultation bilaterally, no wheeze or rhonchi or crackles Abdomen: Soft , Nontender, no organomegaly, bowel sounds heard Musculoskeletal: Full ROM , no gross deformities Extremities: No rash or ulcers or pedal edema Neurological: Alert, oriented x 3, grossly no focal neurological deficits Skin: No rash or ulcers Psychiatric: Mood appropriate Pending Labs and Studies none Code Status full code Admission Date 08/27/2022 Discharge Date 08/29/2022 Patient Instructions Mr. Purdy, you were in the hospital for chest pain. Your troponins were high and EKG showed normal sinus rhythm, nonspecific ST segment changes. You were treated as NSTEMI, with acute kidney injury. You were treated with heparin IVP. You underwent heart cath on 08/28, and you had stents placed to left circumflex artery and right coronary artery. You will also need stent to LAD. You had echocardiogram done on 08/28, results showed EF 50%, diastolic dysfunction present. You are ready to be discharged back to home. Please start taking evolocumab. Please start taking ticagrelor. Please continue take to take aspirin, ezetimibe, Lasix, glipizide, metoprolol. Please follow-up with Dr. Early in 5 to 7 days after discharge. Follow-up with Dr. Calderon after discharge. Please follow-up with cardiac rehab after discharge. If your condition worsens, please go to ED or call your PCP immediately. Medications New Prescription evolocumab (Repatha 140 mg/mL subcutaneous solution)140 Milligram Subcutaneous every other week. Refills: 6. ticagrelor (ticagrelor 90 mg oral tablet)1 tab(s) by mouth every 12 hours. Refills: 3. Unchanged aspirin (aspirin 81 mg oral tablet (chewable))1 tab(s) by mouth every day. ezetimibe (ezetimibe 10 mg oral tablet)1 tab(s) by mouth once a day. furosemide (furosemide 20 mg oral tablet)1 tab(s) by mouth once a day. As needed for swelling. Refills: 0. glipiZIDE (glipiZIDE 2.5 mg oral tablet, extended release)1 tab(s) by mouth once a day with a meal. metoprolol (Metoprolol Tartrate 50 mg oral tablet)1 tab(s) by mouth once a day. Refills: 3. triamcinolone topical (triamcinolone 0.1% topical paste)1 application Topical two (2) times a day. 16 oz. jar. Apply to Armpit and Groin as needed for itching. Refills: 1. Discontinued amLODIPine (amLODIPine 10 mg oral tablet)1 tab(s) by mouth once a day. Refills: 3. meloxicam (meloxicam 15 mg oral tablet)1 tab(s) by mouth once a day. Take with food/milk. Follow Up Follow Up with JASEN EARLY MD When Within 5 to 7 days Where: [address] [facility] [address] [place] [address]- [phone] Follow Up with RAFFAELE CALDERON MD When Within 3-5 days Where: [address] [facility] [address] [place] [address]- [phone] Follow Up with SHON HERRERA When Why: PLEASE CALL THIS OFFICE TO SCHEDULE A HOSPITAL FOLLOW UP APPOINTMENT. Where: [address] [facility] [place] [address]- [phone] Business (1) Follow Up with Cardiac Rehab- [facility] When Why: The Cardiac Rehab department will call you to schedule you for phase 2. We left you a brochure with information about cardiac rehab. If you have any questions please call [phone]. Where: [address] [place] [address]- Discharge Diet Discharge Diet - Ordered -- Type of Diet: Cardiac, No changes were made to your diet during your hospital stay. Please resume your pre hospitalization diet on discharge., 08/29/22 11:34:00 EST Discharge Activity Discharge Activity - Ordered -- Activity As Tolerated, 08/29/22 11:34:00 EST Condition on Discharge fair Discharge Disposition home Information Provided To patient Digitally Signed by MORENITA DOUGHERTY MD on 08/29/2022 10:54 PM [facility] 08-29-2022 Hospital Discharge instructions Patient Education 08/29/2022 11:57:19 3- Heart Cath/PCI groin (06/2018)(CUSTOM) HEART CATHETERIZATION/PCI (groin) Discharge Instructions DIET INSTRUCTIONS Drink plenty of fluids for the next 48 hours to help your kidneys flush the heart cath dye out of your system ACTIVITIES May go up and down stairs CAREFULLY Do not drive car FOR 24 HOURS No heavy lifting GREATER THAN 10 POUNDS or pushing or straining FOR 2 DAYS Someone must stay with you at home after the procedure until the morning. BATHING/SHOWERING May tub bathe in 1 week May shower tomorrow WOUND CARE You will go home with a Band-Aid over your heart cath site. Keep a Band-Aid on for the next 24 hours and then leave open to air. Some degree of bruising and tenderness is normal around the heart cath site. It will take a while for any bruising to completely resolve. Keep your site clean and dry. You need to report the following to your low voltage technician: Any draining or oozing from the site Any swelling at the site Any increased pain or tenderness at the site Any numbness in your leg where the procedure was done Any signs of infection IMPORTANT! CALL 911 FOR ANY BLEEDING OR SWELLING AT THE PROCEDURE SITE If there is any large amount of bleeding, you or someone else need to apply direct pressure to the site (just like the nurse did in the heart lab after your procedure). It is very important that you hold constant pressure. Do not release the pressure to check if the bleeding has stopped. You then need to be transported to the nearest emergency room. WATCH FOR SIGNS OF INFECTION (Usually appears 36-48 hours after surgery) A temperature above 100.5 Redness or swelling Increased pain Foul odor or drainage If you have any questions, please call your doctor at the number listed on your follow up instructions. Follow all instructions given to you by your physician Document Released: 08/27/2006 Document Revised: 08/13/2013 Document Reviewed: 08/28/2014 ExitCare Patient Information 2015 [email or web address], [place], [employer]. This information is not intended to replace advice given to you by your health care provider. Make sure you discuss any questions you have with your health care provider. Follow Up Care 08/27/2022 14:09:40 With:JASEN EARLY MD Address: [address] [facility] [address] [place] [address] [phone] When:5 to 7 days With:RAFFAELE CALDERON MD Address: [address] [facility] [address] [place] [address]- [phone] When:3-5 days With:SHON HERRERA Address: [address] [place] [address]- [phone] Business (1) When: Unknown Comments:PLEASE CALL THIS OFFICE TO SCHEDULE A HOSPITAL FOLLOW UP APPOINTMENT. With:[facility] Address: [address] [place] [address]- When: Unknown Comments:The Cardiac Rehab department will call you to schedule you for phase 2. We left you a brochure with information about cardiac rehab. If you have any questions please call [phone]. [facility] 08-29-2022 Note Discharge Instructions Thank you for allowing [facility] to assist you with your healthcare needs. The following is important discharge information regarding your hospital visit. Your Care Team SHON HERRERA DO What to do next Scheduled Follow-Up Appointments Appointment Type When With Where Contact InformationPC OV Pre Op 09/07/2022 08:30 AM SHON LOOMIS DO [facility] [place] URO OV Physical 20 min 09/20/2022 10:20 AM EST DI AYOUB APRN-RINA [facility] Surgical Pre-Test - [facility] 09/20/2022 11:30 AM EST Main PAT Surgery - [facility] 09/27/2022 11:05 AM EST Main OR PC OV 10/30/2022 10:35 AM SHON LOOMIS DO [facility] [place] CV OV 01/29/2023 09:00 AM EDT MARGARITO RIVERO APRN-RINA [facility] CV DB Diabetic Individual Visit ([facility]) 02/19/2023 08:30 AM MARIJ[facility] Diet Visits Follow Up Appointments Follow Up with JASEN EARLY MD When Within 5 to 7 days Where: [address] [facility] [address] [place] [address] [phone] Follow Up with RAFFAELE CALDERON MD When Within 3-5 days Where: [address] [place] [address] [phone] Follow Up with SHON HERRERA When Why: PLEASE CALL THIS OFFICE TO SCHEDULE A HOSPITAL FOLLOW UP APPOINTMENT. Where: [address] [facility] [place] [address] [phone] Business (1) Follow Up with Card[facility] Rehab- [facility] When Why: The Cardiac Rehab department will call you to schedule you for phase 2. We left you a brochure with information about cardiac rehab. If you have any questions please call [phone]. Where: [address] [place] [address]- The Following Activity and Diet Have Been Ordered for You Discharge Activity - Ordered -- Activity As Tolerated, 08/29/22 11:34:00 EST Discharge Diet - Ordered -- Type of Diet: Cardiac, No changes were made to your diet during your hospital stay. Please resume your pre hospitalization diet on discharge., 08/29/22 11:34:00 EST The Following Equipment Has Been Ordered for You No qualifying data available. The Following Treatments Have Been Ordered for You Discharge Labs No qualifying data available. Discharge Radiology No qualifying data available. Other Therapies No qualifying data available. Post Acute Orders No qualifying data available. Someone Will Contact You Regarding These Home Health Referrals No home referrals have been ordered for you. No one will call you. Allergies Imdur (Muscle ache) Plavix (Muscle ache) Statins (muscle and joint pain) Medications Please ask your primary doctor or pharmacist before taking any other medication not listed, including over the counter drugs, herbal medications, vitamins and or supplements as they may interact with your home medications. 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 New ticagrelor (ticagrelor 90 mg oral tablet) 1 tab(s) by mouth Every 12 hours Refills: 3 Pickup at [facility] #[id number] TAKE TONIGHT 9AM Unchanged aspirin (aspirin 81 mg oral tablet (chewable)) 1 tab(s) by mouth Every day 9AM Unchanged ezetimibe (ezetimibe 10 mg oral tablet) 1 tab(s) by mouth Once a day 9AM Unchanged furosemide (furosemide 20 mg oral tablet) 1 tab(s) by mouth Once a day As needed for swelling NOT GIVEN AT HOSPITAL Unchanged glipiZIDE (glipiZIDE 2.5 mg oral tablet, extended release) 1 tab(s) by mouth Once a day with a meal NOT GIVEN AT HOSPITAL Unchanged metoprolol (Metoprolol Tartrate 50 mg oral tablet) 1 tab(s) by mouth Once a day 9AM Unchanged triamcinolone topical (triamcinolone 0.1% topical paste) 1 application Topical Two (2) times a day 16 oz. jar. Apply to Armpit and Groin as needed for itching NOT GIVEN AT HOSPITAL Pharmacy Information [facility] #[id number]: [address], [place] [phone] What How Much When Comments Stop Taking amLODIPine (amLODIPine 10 mg oral tablet) 1 tab(s) by mouth Once a day Stop Taking meloxicam (meloxicam 15 mg oral tablet) 1 tab(s) by mouth Once a day Take with food/ milk Please take this list to your next doctor s visit. Bring all medications you take, including over the counter medications, herbals and other supplements with you to your doctor s visit. Patients and families are reminded to discard old lists and to update any records with all medication providers or retail pharmacies. Medication Leaflets evolocumab (E voe EMILY ue mab) Repatha, Repatha Pushtronex, Repatha SureClick What is the most important information I should know about evolocumab? Follow all directions on your medicine label and package. Tell each of your healthcare providers about all your medical conditions, allergies, and all medicines you use. What is evolocumab? Evolocumab works by helping the liver reduce levels of 'bad' cholesterol (low-density lipoprotein, or LDL) circulating in your blood. Evolocumab is used together with a low-fat diet and other cholesterol-lowering medications in people with homozygous or heterozygous familial hypercholesterolemia (inherited types of high cholesterol). These conditions can cause high blood levels of LDL cholesterol, and can also cause plaque to build up inside your arteries. Evolocumab is also used to help lower the risk of stroke, heart attack, or other heart complications in people with heart or blood vessel problems caused by plaque build-up or hardening in the arteries (also called atherosclerosis, or arteriosclerosis). Evolocumab may also be used for purposes not listed in this medication guide. What should I discuss with my healthcare provider before using evolocumab? You should not use evolocumab if you are allergic to it. Tell your doctor if you have ever had: liver or kidney disease; or a latex allergy. If you are , your name may be listed on a registry to track the effects of evolocumab on the baby. It may not be safe to breast-feed while using this medicine. Ask your doctor about any risk. Do not give this medicine to a child without medical advice. Evolocumab is not approved for use by anyone younger than 13 years old. For certain conditions, evolocumab should not be given to a child of any age. How is evolocumab given? Follow all directions on your prescription label and read all medication guides or instruction sheets. Use the medicine exactly as directed. Evolocumab is injected under the skin. A healthcare provider may teach you how to properly use the medication by yourself. Evolocumab is available in a prefilled syringe, a SureClick prefilled autoinjector, or a Pushtronex on-body infusor with prefilled cartridge. Read and carefully follow any Instructions for Use provided with your medicine. Ask your doctor or pharmacist if you have questions, or call the electric milkers installer at . The Pushtronex on-body infusor is a special device placed on the skin that delivers your evolocumab dose slowly. You will need to wear the device for about 9 minutes to get the full dose. While wearing the on-body infusor, you may perform moderate activities such as walking, bending, or reaching. Your care provider will show you the best places on your body to inject evolocumab or place the on-body infusor. Use a different place each time you give an injection. Do not inject into the same place two times in a row. Each single-use prefilled syringe, cartridge, or injection device is for one use only. Throw away after one use, even if there is still some medicine left inside. Follow any state or local laws about throwing away used needles and syringes. Use a puncture-proof 'sharps' container. Follow state or local laws about how to dispose of this container. Keep it out of the reach of children and pets. Store evolocumab in the refrigerator in its original carton and protect from light and heat. Do not freeze. Throw away any evolocumab that has been frozen. Take the medicine out of the refrigerator and let it reach room temperature for 30 to 45 minutes before injecting your dose. Do not heat a syringe or injection device. You may also store evolocumab in the original carton at cool room temperature, away from light and heat. Use the medicine within 30 days if it is kept at room temperature. Handle this medicine carefully. Dropping an injection device can cause it to break. Do not use an injection device that has been dropped onto a hard surface, even if you cannot see a break in it. Call your pharmacist for new medicine. Do not shake this medicine. Do not use if the medicine has changed colors or has particles in it. Call your pharmacist for new medicine. You should not stop using evolocumab without your doctor's advice, or your LDL cholesterol levels may increase. Evolocumab is only part of a complete treatment program that also includes diet, statin medication, and regular blood testing. Follow your doctor's instructions very closely. What happens if I miss a dose? Use the missed dose within 7 days after that injection was due, but skip the missed dose if you are more than 7 days late. After a missed dose, go back to your original schedule and use the medicine again when your next scheduled dose is due. Do not use two doses at one time. What happens if I overdose? Seek emergency medical attention or call the Poison Help line at . What should I avoid while using evolocumab? Do not inject evolocumab into skin that is bruised, sore, scarred, or hardened. What are the possible side effects of evolocumab? Get emergency medical help if you have signs of an allergic reaction: hives, severe itching; difficult breathing; swelling of your face, lips, tongue, or throat. Call your doctor at once if you have: high blood sugar--increased thirst, increased urination, dry mouth, fruity breath odor. Common side effects may include: redness, pain, or bruising where an injection was given; back pain; flu symptoms; or cold symptoms such as stuffy nose, sneezing, sore throat. This is not a complete list of side effects and others may occur. Call your doctor for medical advice about side effects. You may report side effects to FDA at 9-026-SDU-0761. What other drugs will affect evolocumab? Other drugs may affect evolocumab, including prescription and [id number] medicines, vitamins, and herbal products. Tell your doctor about all your current medicines and any medicine you start or stop using. Where can I get more information? Your pharmacist can provide more information about evolocumab. Remember, keep this and all other medicines out of the reach of children, never share your medicines with others, and use this medication only for the indication prescribed. Every effort has been made to ensure that the information provided by [employer]. ('[employer]') is accurate, up-to-date, and complete, but no guarantee is made to that effect. Drug information contained herein may be time sensitive. [employer] information has been compiled for use by healthcare practitioners and consumers in the [place] and therefore [employer] does not warrant that uses outside of the [place] are appropriate, unless specifically indicated otherwise. [employer] [employer] drug information does not endorse drugs, diagnose patients or recommend therapy. [employer] drug information is an informational resource designed to assist licensed healthcare practitioners in caring for their patients and/or to serve consumers viewing this service as a supplement to, and not a substitute for, the expertise, skill, knowledge and judgment of healthcare practitioners. The absence of a warning for a given drug or drug combination in no way should be construed to indicate that the drug or drug combination is safe, effective or appropriate for any given patient. [employer] does not assume any responsibility for any aspect of healthcare administered with the aid of information [employer] provides. The information contained herein is not intended to cover all possible uses, directions, precautions, warnings, drug interactions, allergic reactions, or adverse effects. If you have questions about the drugs you are taking, check with your doctor, nurse or pharmacist. Copyright 0778-0941 [employer]. Version: 2.02. Revision Date: 07/17/2018. Education Materials HEART CATHETERIZATION/PCI (groin) Discharge Instructions DIET INSTRUCTIONS Drink plenty of fluids for the next 48 hours to help your kidneys flush the heart cath dye out of your system ACTIVITIES May go up and down stairs CAREFULLY Do not drive car FOR 24 HOURS No heavy lifting GREATER THAN 10 POUNDS or pushing or straining FOR 2 DAYS Someone must stay with you at home after the procedure until the morning. BATHING/SHOWERING May tub bathe in 1 week May shower tomorrow WOUND CARE You will go home with a Band-Aid over your heart cath site. Keep a Band-Aid on for the next 24 hours and then leave open to air. Some degree of bruising and tenderness is normal around the heart cath site. It will take a while for any bruising to completely resolve. Keep your site clean and dry. You need to report the following to your low voltage technician: Any draining or oozing from the site Any swelling at the site Any increased pain or tenderness at the site Any numbness in your leg where the procedure was done Any signs of infection IMPORTANT! CALL 911 FOR ANY BLEEDING OR SWELLING AT THE PROCEDURE SITE If there is any large amount of bleeding, you or someone else need to apply direct pressure to the site (just like the nurse did in the heart lab after your procedure). It is very important that you hold constant pressure. Do not release the pressure to check if the bleeding has stopped. You then need to be transported to the nearest emergency room. WATCH FOR SIGNS OF INFECTION (Usually appears 36-48 hours after surgery) A temperature above 100.5 Redness or swelling Increased pain Foul odor or drainage If you have any questions, please call your doctor at the number listed on your follow up instructions. Follow all instructions given to you by your physician Document Released: 08/27/2006 Document Revised: 08/13/2013 Document Reviewed: 08/28/2014 ExitCare Patient Information 2015 [facility], [facility]. This information is not intended to replace advice given to you by your health care provider. Make sure you discuss any questions you have with your health care provider. Additional Information VACCINATE! IT SAVES LIVES! Members of the community who have not yet received the COVID-19 vaccine and would like to receive it can visit one of [facility] vaccine clinics. There are many vaccine clinic locations within the [facility]. For locations and available times, please visit [email or web address] It is important to note that some COVID mobile vaccine clinics are held outdoors and may be canceled in rainy or stormy conditions. To learn more about pediatric vaccinations (ages 5-11), we invite you to visit the [facility] webpage. [email or web address] To learn more about the COVID-19 vaccine, we invite you to visit the [facility] website for a list of frequently asked questions. [email or web address] [facility] [employer] Patient Portal Access Instructions: Stay connected with your healthcare team and access your personal medical information anytime with the [employer] Patient Portal.If you would like a full copy of your medical records, please contact the [facility] Medical Records Department, Sunday through Sunday between 8a.m. and 4:30p.m. Please follow the directions below to access the portal: 1.Access the email account you provided upon registration to the [facility].2.Look for an invitation email from [facility].3.Open the email and access the invitation link: Accept Invitation to [facility] [employer]4.Fill in the required cardenas to create your account. Sign into [email or web address] with your username and password that you created in the above steps to stay up to date. You can then view a summary of results, a summary of your visits, and the ability to download your summaries to your computer or send the information securely to a physician. Remember that your healthcare information is confidential, so carefully consider who you will allow to register on the [employer] Patient Portal for access to your information. You can also access the [employer] Patient Portal on the [employer] estrellita. Simply click on Health Records under Health Data and then click on the [employer]kit logo. HOW TO SAFELY DISPOSE OF PRESCRIPTION MEDICATIONS Please use one of the following methods to safely dispose of your unused medications. 1.Use a drug disposal kit: the drug disposal pouch allows you to safely discard your old and unused drugs. Ask your nurse to give you one when you are discharged.2.Visit a local take-back location: Many local pharmacies and police departments have programs that collect old and unwanted prescription drugs. Call your local pharmacy or go to http://bit.ly/8X6Cp7p to find one close to you.3.Make use of household items: Use cat litter or old coffee grounds to dispose medications if other options are not available. Mix your drugs with these household products, seal them in an airtight container and throw it into the garbage. Call [facility]: [phone] to be sure your drugs can be disposed of in this way. Some medicines may require a different approach.4.Never flush your medications down the toilet. IF YOU HAVE BEEN PRESCRIBED AN OPIOID FOR PAIN If you have been prescribed an opioid (such as hydrocodone, oxycodone or morphine), it is critical to understand the possible side effects and risks of opioid pain medications. Even when taken as directed, opioids can have several side effects including: Tolerance, meaning you might need to take more of a medication for the same pain relief. Nausea, vomiting and/or constipation. Sleepiness, dizziness, dry mouth, confusion, depression or itching. Physical dependence, meaning you have withdrawal symptoms when a medication is stopped, can develop within a few days. KNOW YOUR RESPONSIBILITIES It is important to know exactly how much and how often to take the opioid pain medications you are prescribed. Never take opioids in higher amounts or more often than prescribed. Do not combine opioids with alcohol or other drugs that cause drowsiness, such as benzodiazepines, also known as benzos, including diazepam and alprazolam, muscle relaxants or sleep aids. Never sell or share prescription opioids. This is illegal. Store opioids in a secure place and out of reach of others (including children, family, friends and visitors). The last page of this document has been signed and retained as a CHART COPY. Signatures Patient Education Materials 3- Heart Cath/PCI groin (06/2018)(CUSTOM) Medication Leaflets Repatha My discharge plan and instructions have been reviewed and explained to me and I,AURE PURDY understand my current condition and have read and understand these discharge instructions. I have received a written copy of the plan/instructions. If I have questions, I am aware that I should contact my doctor. 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 Transitional Action Points Patient is hospitalized with shortness of breath, chest pain, and STEMI did have a heart cath with multiple stents placed Is from home alone at baseline No hospitalizations in the past 12 months Is independent he states he did finish outpatient therapy on 08/25 He states this was ordered by his pcp for him complaining of shortness of breath and weakness He has no insecurities transitioning home Assessment/Plan NSTEMI Generalized debility Functional decline Readmission Risk Points Multiple medical comorbid conditions Weakness Been Overall functional decline History of Present Illness 76-year-old male here following chest pain, shortness of breath, and NSTEMI. He had a cardiac catheterization with 2 stent placements. He has had a hospitalization in the past year and was living home alone on 1 level prior to admission, required steps in the house, denies falls, limited ADLs, was working, and he just completed outpatient therapy on 08/25. He states he was feeling continually up walking in room, feels from his feet. Review of Symptoms General: Feels good HEENT: Denies blurry vision, headache, congestion Respiratory: Denies shortness of breath or cough Cardio: Denies chest pain or palpitations GI: Denies abdominal pain or change in appetite Musculoskeletal: Up walking in room, feels from his feet Neuro: Denies dizziness or confusion Psych: Denies depression or anxiety Physical exam General: No acute distress, in bed, obese HEENT: Oral mucosa moist, eyes following movement Respiratory: CPAP in place Musculoskeletal: Weakness present Neurological: No tremors or focal deficit Psych: Mood cooperative, alert oriented Vitals Signs(Last 24 hrs)__Last Charted Minimum Ma ximum TempH 37.4(AUG 28 19:34)36.8(AUG 28 11:26)37(AUG 28 14:50) Heart Rate70(AUG 28 23:37)61(AUG 28 06:16)95(AUG 28 14:50) Resp Rate16(AUG 28:37)16(AUG 28 23:37)18(AUG 28 06:16) QHN601(AUG 28:37)106(AUG 28 23:37)133(AUG 28:16) DBPC 38(AUG 28:37)C 38(AUG 28 23:37)61(AUG 28 06:16) Problem List/ Past Medical History CAD IN [place] COPD, mild Carotid bruit Chronic low back pain Controlled diabetes mellitus DDD (degenerative disc disease), lumbar Hyperlipemia Hypertension JEREMIAS (OBSTRUCTIVE SLEEP APNEA) Preop cardiovascular exam Radicular pain of right lower extremity S/P CABG (CORONARY ARTERY BYPASS GRAFT) SOB (SHORTNESS OF BREATH) Syncope and collapse Systolic murmur No qualifying data available. Procedure/ Surgical History Arthroplasty of ankle with implant: 11/08/18 THR - Total hip replacement: 10/08/17 Arthroplasty of hip, total, with use of methyl methacrylate: 06/09/15 Circumcision: 09/22/00 Medication List Active Medications Ordered acetaminophen: 650 mg, 2 tab(s), Oral, q4h, PRN: Pain, scale 1-3. aspirin: 81 mg, 1 tab(s), Oral, qDayM. ezetimibe: 10 mg, 1 tab(s), Oral, qDay. heparin: 4,000 unit(s), 0.8 mL, IV Push, q6h, PRN: Protocol, Weight Based Heparin. heparin 25,000 unit(s) + Dextrose 5% Premix Diluent 250 mL: 10 mL/hr, Intravenous. insulin lispro (HumaLOG): Give 0-5 units/dose, Subcutaneous, TIDAC. melatonin: 3 mg, 1 tab(s), Oral, qHS, PRN: Sleep. metoprolol: 25 mg, 1 tab(s), Oral, qDayM. nitroGLYcerin: 0.4 mg, 1 tab(s), Sublingual, q5min, PRN: Chest pain. .PharmacyCommunication: 1 EA, Miscellaneous, Unscheduled. ticagrelor: 90 mg, 1 tab(s), Oral, q12h. Prescribed amLODIPine: 10 mg, 1 tab(s), Oral, qDay, 90 tab(s), 3 Refill(s). furosemide: 20 mg, 1 tab(s), Oral, qDay, As needed for swelling, 30 tab(s), 0 Refill(s). metoprolol: 50 mg, 1 tab(s), Oral, qDay, 90 tab(s), 3 Refill(s). triamcinolone topical: 1 estrellita, Topical, BID, 16 oz. jar. Apply to Armpit and Groin as needed for itching, 454 gram(s), 1 Refill(s). Documented aspirin: 81 mg, 1 tab(s), Oral, Daily, 0 Refill(s). ezetimibe: 10 mg, 1 tab(s), Oral, qDay, 90 tab(s), 0 Refill(s). glipiZIDE: 2.5 mg, 1 tab(s), Oral, qDayM, 0 Refill(s). meloxicam: 15 mg, 1 tab(s), Oral, qDay, Take with food/milk, 30 tab(s), 0 Refill(s). Medications Inactivated in the Last 72 Hours aspirin: 324 mg, 4 tab(s), Oral, Once. atorvastatin: 40 mg, 1 tab(s), Oral, qDay. DME: See Instructions, check blood sugar two times daily E11.65, 1 EA, 0 Refill(s). DME: See Instructions, two times daily E11.65 #50, 1 EA, 5 Refill(s). DME: See Instructions, two times daily E11.65, 1 EA, 0 Refill(s). DME: See Instructions, and lancet device. two times daily. E11.65 1 box., 1 EA, 5 Refill(s). evolocumab: 140 mg, Subcutaneous, q2wk, 2 EA, 5 Refill(s). evolocumab: 140 mg, 1 mL, Subcutaneous, q2wk. fentaNYL: Miscellaneous, Once. heparin: 4,000 unit(s), 0.8 mL, IV Push, Once. heparin: 4,000 unit(s), 0.8 mL, IV Push, q6h, PRN: Protocol, Weight Based Heparin. heparin: Miscellaneous, Once. heparin: Miscellaneous, Once. heparin: Miscellaneous, Once. heparin 25,000 unit(s) [1000 unit(s)/hr] + Dextrose 5% Premix Diluent 250 mL: 10 mL/hr, Intravenous. lidocaine: Miscellaneous, Once. metoprolol: 25 mg, 1 tab(s), Oral, qDay. metoprolol: 12.5 mg, 1 EA, Oral, BIDM. midazolam: Miscellaneous, Once. morphine: 4 mg, 1 mL, IV Push, Once. morphine: 1 mg, 0.5 mL, IV Push, Once. nitroGLYcerin: 0.4 mg, 1 tab(s), Sublingual, q5min, PRN: Chest pain. nitroGLYcerin: 0.4 mg, 1 tab(s), Sublingual, Once, PRN: as needed for chest pain. nitroGLYcerin: Miscellaneous, Once. ondansetron: 4 mg, 2 mL, IV Push, Once. ticagrelor: Miscellaneous, Once. Allergies Imdur (Muscle ache) Plavix (Muscle ache) Statins (muscle and joint pain) Social HX Alcohol Details: Use: Never. 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 Home/Environment Details: Living situation: Home/Independent. lives alone - self Primary Gut Carrier:. Nutrition/Health Details: Caffeine intake amount: Coffee x 1/day. Sexual Details: Sexually active: Yes. Number of lifetime partners: 2. Self described orientation: Straight or heterosexual. Substance Abuse Details: Use: Never. Tobacco Details: Tobacco Use: Former smoker, quit more than 30 days ago. Stopped at age: 57 Years.; Comment(s): No smoke exposure Family medical HX Mother (): Cancer; Heart attack; Rheumatoid arthritis Father: Asthma; Hemophilia Sister (): Breast cancer Code Status Code Status - Ordered -- 08/27/22 14:45:00 EST, Full Code, Constant Order I Marbella CHAPMAN, am scribing for Amparo Zamorano NP, in the presence of Amparo Zamorano NP, personally performed the services described in this documentation, as described by Marbella CHAPMAN in my presence and it is both accurate and complete. This document transcribed using voice recognition software may contain typographical errors. Digitally Signed by AMPARO ZAMORANO on 08/29/2022 12:27 PM [facility] 08-28-2022 Cardiology Progress note Date of Service 08/28/2022 Chief Complaint Chest pain Subjective Patient was examined this morning in her room. She denied any chest pain, or chest palpitations. States that chest pain has resolved completely. Patient denies any dyspnea at rest or with exertion. Patient has no other complaints at this time. Objective Vitals and Measurements T: 37 C (Oral) TMIN: 36.7 C (Oral) TMAX: 37 C (Oral) HR: 95(Monitored) RR: 18 BP: 126/56 SpO2: 94% Intake and Output 7AM Yesterday to 7AM Today Intake and Output (Last 24 hours) Intake Oral Intake 600.00 Output Urine Voided 500.00 Total Summary Total Intake 600.00 Total Output 500.00 Fluid Balance 100.00 Physical Exam General Appearance: Patient comfortably lying on bed, not in acute distress on 2 L of oxygen via nasal cannula. Looks stated age. Head: Normocephalic, atraumatic EENT: PERRLA, mucous membranes pink and moist Neck: Supple, no JVD, no mass Cardiac: s1s2,RRR, no murmurs or rubs or gallops Lungs: Clear to auscultation bilaterally, no wheeze or rhonchi or crackles Abdomen: Soft , Nontender, no organomegaly, bowel sounds heard Musculoskeletal: Full ROM , no gross deformities Extremities: No rash or ulcers or pedal edema Neurological: Alert, oriented x 3, grossly no focal neurological deficits Skin: No rash or ulcers Psychiatric: Mood appropriate Weight Dosing Weight: 104.5 kg (08/27/22) Medications Medications (11) Active Scheduled: (6) aspirin 81 mg EC 81 mg 1 tab(s), Oral, qDayM ezetimibe 10 mg tablet 10 mg 1 tab(s), Oral, qDay insulin lispro 100 units/mL Soln (3 mL) Give 0-5 units/dose, Subcutaneous, TIDAC metoprolol tartrate 25 mg tablet 25 mg 1 tab(s), Oral, qDay No metformin for 48 hrs post contrast 1 EA, Miscellaneous, Unscheduled ticagrelor 90 mg tablet 90 mg 1 tab(s), Oral, q12h Continuous: (1) heparin 25,000 unit(s) + Dextrose 5% Premix Diluent 250 mL 250 mL, Intravenous, 10 mL/hr PRN: (4) acetaminophen 325 mg Tablet 650 mg 2 tab(s), Oral, q4h heparin 5,000 units/mL (1 mL) vial 4,000 unit(s) 0.8 mL, IV Push, q6h melatonin 3 mg tablet 3 mg 1 tab(s), Oral, qHS nitroglycerin 0.4 mg Tablet (25/btl) 0.4 mg 1 tab(s), Sublingual, q5min Lab Results 08/28 04:15 WBC: 11.0 H Hgb: 14.5 Hct: 43.9 Platelet: 191 Neutrophil %: 72.7 Glucose Level: 147 H Sodium Level: 136 Potassium Level: 4.3 BUN: 15.0 Creatinine Lvl (s): 1.23 08/27 16:47 WBC: 14.9 H Hgb: 15.9 Hct: 48.3 Platelet: 212 Neutrophil %: 79.3 H Protime: 12.3 PT International Ratio: 1.0 Glucose Level: 134 H Sodium Level: 139 Potassium Level: 4.5 BUN: 18.0 Creatinine Lvl (s): 1.13 Imaging Results and Diagnostics XR Chest 1 View Result Date: August 27, 2022 Verified By: PRABHA HAMMOND MD CLINICAL STATEMENT: IMPRESSION: No acute radiographic findings. EKG Electrocardiogram (EKG) - InProcess -- 08/27/22 19:42:00 EST, Post-procedure, Complete by Nursing Electrocardiogram (EKG) - InProcess -- 08/28/22 14:39:00 EST Assessment/Plan NSTEMI HERBERT on CKD stage III Leukocytosis History of CAD status post CABG [2010] History of diabetes mellitus History of hypertension History of hyperlipidemia History of JEREMIAS on CPAP DVT prophylaxis CODE STATUS: Full code Patient is a 76-year-old Scottish-speaking male with a past medical history of type 2 diabetes mellitus, hypertension, hyperlipidemia and JEREMIAS on CPAP who presented with chest pain. Patient presented to [facility] ER and was found to have a troponin level of 10,[address] segment changes. He was then transferred to [facility] for further evaluation and management. NSTEMI -Patient underwent cath today on 08/28. Cath report showed percutaneous intervention on the acute total occlusion and saphenous vein graft to the left circumflex. Stent placed. Percutaneous invention on the stenosis in the saphenous vein graft to the right coronary. He will need stent to LAD. -A1c 6.6, lipid profile shows cholesterol 151, triglycerides 91, HDL low 37, LDL 96. TSH 2.670. -continue ezetimibe -started metoprolol succinate 25 mg daily - continue insulin sliding scale for diabetes mellitus. - Patient had echocardiogram today on 08/28, results showed EF 50%, diastolic dysfunction present, -continue aspirin, ticagrelor, nitroglycerin as needed chest pain. Leukocytosis No fever within the past 24 hours. -Continue to monitor WBC DVT prophylaxis: CODE STATUS: Full code The above plan was discussed with attending physician. All changes will be made as addendum. Digitally Signed by MORENITA DOUGHERTY MD on 08/28/2022 06:43 PM Digitally Signed by JASEN EARLY MD [facility] 08-27-2022 History and physical note Date of Service Chief Complaint Chest pain since around 4 AM this morning History of Present Illness Patient is a 76-year-old Scottish-speaking man with a past medical history of coronary artery disease status post CABG [2009], type 2 diabetes mellitus [diet-controlled], hypertension [on amlodipine and metoprolol tartrate], hyperlipidemia [on Zetia] and JEREMIAS on CPAP at night who presented with chest pain. He describes the pain started around 4 AM that awaken him from his sleep, midsternal and localized, constant described as pressure-like in nature at that time he was 4/10 in severity that later increased to 7/10 in severity and at the beginning he thought it was due to indigestion and he decided to visit the emergency department at [facility]. He did describe feeling this being in 2009 when he had a heart attack and required open heart surgery. In the [facility] ED patient received nitro glycerin and morphine which helped relieve the pain the severity of 4/10. He denied any diaphoresis, palpitations, dizziness but did endorse some shortness of breath with the chest pain. He denied any dyspnea, orthopnea, PND or lower limb edema prior to this episode. Patient denied any recent sick contacts or respiratory infections. Cardiac history: Patient follows with CARDIOLOGY AND LAST VISIT WAS ON 24 JULY 2022 WITH [facility], for routine follow-up. Patient had CABG in 2009 [[place] to LAD and second diagonal, left radial artery to circumflex, SVG's to PDA, acute marginal branch RCA. Last echo 08/11/2022 showed a ejection fraction of 60 to 65% with normal wall motion and no regional wall motion abnormalities. Aortic valve mild stenosis, mitral valve annulus is moderately calcified, right atrium mildly dilated with a right atrial pressure of 3 mmHg. Stress test 10/06/2019 showed no ischemia and normal EF Carotid Doppler 12/29/2021 bilateral carotid duplex was performed and showed mild 1 to 39% stenosis of bilateral internal carotid arteries and normal flow to bilateral vertebral arteries. Past surgical history also included hip replacements bilaterally, right shoulder surgery and left ankle surgery. Allergies: Statins, Imdur and Plavix Family history: Patient is adopted and his adopted parents had no past medical history. 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 In [facility] ED: Vitals BP 105/57, heart rate 64, RR 20, temperature 36.8, SPO2 100% on 2 L of oxygen Labs: CBC WBC 10.7, Hb 15.7, hematocrit 46.4 and platelets 219. BMP sodium 139, potassium 4.2, chloride 101, CO2 25, BUN 19, creatinine 1.46, glucose 205. Troponin 10,662.3 EKG showed normal sinus rhythm with a ventricular rate of 67 bpm, RBBB and LAFB and lateral wall ST depression changes. Repeat EKG done at [facility] showed no specific ST segment changes. Patient was treated with nitroglycerin and morphine in the ED for chest pain. Chest x-ray done at [facility] showed no acute changes. Patient was admitted to [facility]/CCU service for further evaluation and management. Review of Systems Constitutional: denies Fevers and chills , no loss of appetite, denies fatigue or weight change Eyes: Denies double vision/blurring of vision/flashes or floaters Ears, Nose, Mouth & Throat: Denies any tinnitus/hearing loss/sinus congestion/nasal discharge/sore throat Cardiovascular: Denies any chest pain/shortness of breath/hemoptysis/palpitations/amelia phoresis Respiratory: Denies any shortness of breath/cough/productive sputum/hemoptysis Gastrointestinal: Denies any abdominal pain/nausea/vomiting/diarrhea/ana tochezia/hematemesis/melena Genitourinary: Denies any dysuria/hematuria Musculoskeletal: denies joint pain or joint swelling or deformities Skin: No ulcers or rash Neurological: denies Weakness or numbness of extremities/facial droop/loss of balance Endocrine: Denies any heat or cold intolerance/polyuria/polydipsia/po lyphagia Hematologic/Lymphatic: denies lymphadenopathy Allergic/Immunologic: Denies any seasonal allergy/sneezing/tearing from the eyes Physical Exam Vitals and Measurements HR: 62(Monitored) RR: 20 BP: 105/57 SpO2: 96% HT: 167.6 cm WT: 104.5 kg BMI: 37.2 Weight Dosing Weight: 104.5 kg (08/27/22) General Appearance: Patient comfortably lying on bed, not in acute distress on 2 L of oxygen via nasal cannula. Head: Normocephalic, atraumatic EENT: PERRLA, mucous membranes pink and moist Neck: Supple, no JVD, no mass Cardiac: s1s2,RRR, no murmurs or rubs or gallops Lungs: Clear to auscultation bilaterally, no wheeze or rhonchi or crackles Abdomen: Soft , Nontender, no organomegaly, bowel sounds heard Musculoskeletal: Full ROM , no gross deformities Extremities: No rash or ulcers or pedal edema Neurological: Alert, oriented x 3, grossly no focal neurological deficits Skin: No rash or ulcers Psychiatric: Mood appropriate Lab Results No 36 Hour Lab Data Imaging Results and Diagnostics XR Chest 1 View Result Date: August 27, 2022 Verified By: PRABHA HAMMOND MD CLINICAL STATEMENT: IMPRESSION: No acute radiographic findings. Assessment/Plan NSTEMI HERBERT on CKD stage III History of CAD status post CABG [2010] History of diabetes mellitus History of hypertension History of hyperlipidemia History of JEREMIAS on CPAP DVT prophylaxis CODE STATUS: Full code Patient is a 76-year-old Scottish-speaking male with a past medical history of type 2 diabetes mellitus, hypertension, hyperlipidemia and JEREMIAS on CPAP who presented with chest pain. Patient presented to [facility] and was found to have a troponin level of 10,[address] segment changes. He was then transferred to [facility] for further evaluation and management. Patient's EKG showed nonspecific ST segment changes with positive troponin at [facility]. Patient was treated with nitroglycerin and morphine for chest pain. Patient continues to have midsternal pressure-like chest pain. We will order troponin x2 on follow-up to see repeated levels and serial EKG. Based on these repeat troponin levels and EKGs. We will start patient on heparin by weight We will resume patient's home medication for hyperlipidemia [ezetimibe] We will start patient on insulin sliding scale for diabetes mellitus. We will order echocardiogram. We will risk stratify patient with TSH, A1c and lipids. We will order proBNP. We will continue patient on home dose of aspirin. We will start patient on nitroglycerin as needed chest pain. Patient will be kept n.p.o. Patient is scheduled for cardiac catheterization, risk of contrast nephropathy was discussed with patient and he understood the risk and agreed to move forward with cardiac catheterization. DVT prophylaxis: Heparin by weight CODE STATUS: Full code Case and management of patient was discussed with Dr. Early, if there are any changes to be made to the plan above please see addendum below. Problem List/Past Medical History Ongoing CAD IN [place] ARTERY Carotid bruit Controlled diabetes mellitus DDD (degenerative disc disease), lumbar Hyperlipemia Hypertension JEREMIAS (OBSTRUCTIVE SLEEP APNEA) Preop cardiovascular exam Radicular pain of right lower extremity S/P CABG (CORONARY ARTERY BYPASS GRAFT) SOB (SHORTNESS OF BREATH) Syncope and collapse Systolic murmur Historical No qualifying data Procedure/Surgical History Arthroplasty of ankle with implant: 11/08/18 THR - Total hip replacement: 10/08/17 Arthroplasty of hip, total, with use of methyl methacrylate: 06/09/15 Circumcision: 09/22/00 Medications Home Medications (12) Active Alcohol Swabs See Instructions amLODIPine 10 mg oral tablet 10 mg = 1 tab(s), Oral, qDay aspirin 81 mg oral tablet (chewable) 81 mg = 1 tab(s), Oral, Daily Blood Glucose Test Machine See Instructions Blood Glucose Test Strips See Instructions ezetimibe 10 mg oral tablet 10 mg = 1 tab(s), Oral, qDay furosemide 20 mg oral tablet 20 mg = 1 tab(s), Oral, qDay glipiZIDE 2.5 mg oral tablet, extended release 2.5 mg = 1 tab(s), Oral, qDayM Lancets See Instructions meloxicam 15 mg oral tablet 15 mg = 1 tab(s), Oral, qDay Metoprolol Tartrate 50 mg oral tablet 50 mg = 1 tab(s), Oral, qDay triamcinolone 0.1% topical paste 1 estrellita, Topical, BID Allergies Imdur (Muscle ache) Plavix (Muscle ache) Statins (muscle and joint pain) Social History Smoking Status - 08/03/2016 Former smoker Alcohol Use: Never., 04/08/2019 Employment/School Status: 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 lives alone - self Primary Gut Carrier:., 04/08/2019 Nutrition/Health Caffeine intake amount: Coffee x 1/day., 04/10/2019 Sexual Sexually active: Yes. Number of lifetime partners: 2. Self described orientation: Straight or heterosexual., 04/08/2019 Substance Abuse Use: Never., 04/08/2019 Tobacco Tobacco Use: Former smoker, quit more than 30 days ago. Stopped at age: 57 Years., 04/09/2019 Family History Asthma: Father. Bladder cancer: Negative: Mother, Father and Grandparent. Breast cancer: Sister. Cancer: Mother. Heart attack: Mother. Heart disease: Negative: Mother, Father and Grandparent. Hemophilia: Father. Hypertension: Negative: Mother, Father and Grandparent. Kidney stone: Negative: Mother, Father, Sister, Brother, Daughter, Son and Grandparent. Prostate cancer: Negative: Father and Grandparent. Renal cancer: Negative: Mother, Father and Grandparent. Rheumatoid arthritis: Mother. Immunizations pneumococcal 13-valent conjugate vaccine: 0 unknown unit (06/05/16) pneumococcal 23-valent vaccine(Pneumovax: 0 unknown unit (06/27/13) tetanus/diphth/pertuss (Tdap) adult/adol: 0 unknown unit (06/27/13) Code Status Code Status - Ordered -- 08/27/22 14:45:00 EST, Full Code, Constant Order Digitally Signed by LIN SANABRIA MD on 08/27/2022 05:31 PM [facility] 08-27-2022 History and physical note Date of Service Chief Complaint Chest pain since around 4 AM this morning History of Present Illness Patient is a 76-year-old Scottish-speaking man with a past medical history of coronary artery disease status post CABG [2010], type 2 diabetes mellitus [diet-controlled], hypertension [on amlodipine and metoprolol tartrate], hyperlipidemia [on Zetia] and JEREMIAS on CPAP at night who presented with chest pain. He describes the pain started around 4 AM that awaken him from his sleep, midsternal and localized, constant described as pressure-like in nature at that time he was 4/10 in severity that later increased to 7/10 in severity and at the beginning he thought it was due to indigestion and he decided to visit the emergency department at [facility]. He did describe feeling this being in 2009 when he had a heart attack and required open heart surgery. In the [facility] ED patient received nitro glycerin and morphine which helped relieve the pain the severity of 4/10. He denied any diaphoresis, palpitations, dizziness but did endorse some shortness of breath with the chest pain. He denied any dyspnea, orthopnea, PND or lower limb edema prior to this episode. Patient denied any recent sick contacts or respiratory infections. Cardiac history: Patient follows with CARDIOLOGY AND LAST VISIT WAS ON 24 JULY 2022 WITH Nj MONTENEGRO, for routine follow-up. Patient had CABG in 2009 [RICHMOND to LAD and second diagonal, left radial artery to circumflex, SVG's to PDA, acute marginal branch RCA. Last echo 08/11/2022 showed a ejection fraction of 60 to 65% with normal wall motion and no regional wall motion abnormalities. Aortic valve mild stenosis, mitral valve annulus is moderately calcified, right atrium mildly dilated with a right atrial pressure of 3 mmHg. Stress test 10/06/2019 showed no ischemia and normal EF Carotid Doppler 12/29/2021 bilateral carotid duplex was performed and showed mild 1 to 39% stenosis of bilateral internal carotid arteries and normal flow to bilateral vertebral arteries. Past surgical history also included hip replacements bilaterally, right shoulder surgery and left ankle surgery. Allergies: Statins, Imdur and Plavix Family history: Patient is adopted and his adopted parents had no past medical history. 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 In [facility] ED: Vitals BP 105/57, heart rate 64, RR 20, temperature 36.8, SPO2 100% on 2 L of oxygen Labs: CBC WBC 10.7, Hb 15.7, hematocrit 46.4 and platelets 219. BMP sodium 139, potassium 4.2, chloride 101, CO2 25, BUN 19, creatinine 1.46, glucose 205. Troponin 10,662.3 EKG showed normal sinus rhythm with a ventricular rate of 67 bpm, RBBB and LAFB and lateral wall ST depression changes. Repeat EKG done at [facility] showed no specific ST segment changes. Patient was treated with nitroglycerin and morphine in the ED for chest pain. Chest x-ray done at [facility] showed no acute changes. Patient was admitted to [facility] service for further evaluation and management. Review of Systems Constitutional: denies Fevers and chills , no loss of appetite, denies fatigue or weight change Eyes: Denies double vision/blurring of vision/flashes or floaters Ears, Nose, Mouth & Throat: Denies any tinnitus/hearing loss/sinus congestion/nasal discharge/sore throat Cardiovascular: Denies any chest pain/shortness of breath/hemoptysis/palpitations/amelia phoresis Respiratory: Denies any shortness of breath/cough/productive sputum/hemoptysis Gastrointestinal: Denies any abdominal pain/nausea/vomiting/diarrhea/ana tochezia/hematemesis/melena Genitourinary: Denies any dysuria/hematuria Musculoskeletal: denies joint pain or joint swelling or deformities Skin: No ulcers or rash Neurological: denies Weakness or numbness of extremities/facial droop/loss of balance Endocrine: Denies any heat or cold intolerance/polyuria/polydipsia/po lyphagia Hematologic/Lymphatic: denies lymphadenopathy Allergic/Immunologic: Denies any seasonal allergy/sneezing/tearing from the eyes Physical Exam Vitals and Measurements HR: 62(Monitored) RR: 20 BP: 105/57 SpO2: 96% HT: 167.6 cm WT: 104.5 kg BMI: 37.2 Weight Dosing Weight: 104.5 kg (08/27/22) General Appearance: Patient comfortably lying on bed, not in acute distress on 2 L of oxygen via nasal cannula. Head: Normocephalic, atraumatic EENT: PERRLA, mucous membranes pink and moist Neck: Supple, no JVD, no mass Cardiac: s1s2,RRR, no murmurs or rubs or gallops Lungs: Clear to auscultation bilaterally, no wheeze or rhonchi or crackles Abdomen: Soft , Nontender, no organomegaly, bowel sounds heard Musculoskeletal: Full ROM , no gross deformities Extremities: No rash or ulcers or pedal edema Neurological: Alert, oriented x 3, grossly no focal neurological deficits Skin: No rash or ulcers Psychiatric: Mood appropriate Lab Results No 36 Hour Lab Data Imaging Results and Diagnostics XR Chest 1 View Result Date: August 27, 2022 Verified By: PRABHA HAMMOND MD CLINICAL STATEMENT: IMPRESSION: No acute radiographic findings. Assessment/Plan NSTEMI HERBERT on CKD stage III History of CAD status post CABG [2010] History of diabetes mellitus History of hypertension History of hyperlipidemia History of JEREMIAS on CPAP DVT prophylaxis CODE STATUS: Full code Patient is a 76-year-old Scottish-speaking male with a past medical history of type 2 diabetes mellitus, hypertension, hyperlipidemia and JEREMIAS on CPAP who presented with chest pain. Patient presented to [facility] and was found to have a troponin level of 10,[address] segment changes. He was then transferred to [facility] for further evaluation and management. Patient's EKG showed nonspecific ST segment changes with positive troponin at [facility]. Patient was treated with nitroglycerin and morphine for chest pain. Patient continues to have midsternal pressure-like chest pain. We will order troponin x2 on follow-up to see repeated levels and serial EKG. Based on these repeat troponin levels and EKGs. We will start patient on heparin by weight We will resume patient's home medication for hyperlipidemia [ezetimibe] We will start patient on insulin sliding scale for diabetes mellitus. We will order echocardiogram. We will risk stratify patient with TSH, A1c and lipids. We will order proBNP. We will continue patient on home dose of aspirin. We will start patient on nitroglycerin as needed chest pain. Patient will be kept n.p.o. Patient is scheduled for cardiac catheterization, risk of contrast nephropathy was discussed with patient and he understood the risk and agreed to move forward with cardiac catheterization. DVT prophylaxis: Heparin by weight CODE STATUS: Full code Case and management of patient was discussed with Dr. Early, if there are any changes to be made to the plan above please see addendum below. Problem List/Past Medical History Ongoing CAD IN [place] ART[place] Carotid bruit Controlled diabetes mellitus DDD (degenerative disc disease), lumbar Hyperlipemia Hypertension JEREMIAS (OBSTRUCTIVE SLEEP APNEA) Preop cardiovascular exam Radicular pain of right lower extremity S/P CABG (CORONARY ARTERY BYPASS GRAFT) SOB (SHORTNESS OF BREATH) Syncope and collapse Systolic murmur Historical No qualifying data Procedure/Surgical History Arthroplasty of ankle with implant: 11/08/18 THR - Total hip replacement: 10/08/17 Arthroplasty of hip, total, with use of methyl methacrylate: 06/09/15 Circumcision: 09/22/00 Medications Home Medications (12) Active Alcohol Swabs See Instructions amLODIPine 10 mg oral tablet 10 mg = 1 tab(s), Oral, qDay aspirin 81 mg oral tablet (chewable) 81 mg = 1 tab(s), Oral, Daily Blood Glucose Test Machine See Instructions Blood Glucose Test Strips See Instructions ezetimibe 10 mg oral tablet 10 mg = 1 tab(s), Oral, qDay furosemide 20 mg oral tablet 20 mg = 1 tab(s), Oral, qDay glipiZIDE 2.5 mg oral tablet, extended release 2.5 mg = 1 tab(s), Oral, qDayM Lancets See Instructions meloxicam 15 mg oral tablet 15 mg = 1 tab(s), Oral, qDay Metoprolol Tartrate 50 mg oral tablet 50 mg = 1 tab(s), Oral, qDay triamcinolone 0.1% topical paste 1 estrellita, Topical, BID Allergies Imdur (Muscle ache) Plavix (Muscle ache) Statins (muscle and joint pain) Social History Smoking Status - 08/03/2016 Former smoker Alcohol Use: Never., 04/08/2019 Employment/School Status: 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 lives alone - self Primary Gut Carrier:., 04/08/2019 Nutrition/Health Caffeine intake amount: Coffee x 1/day., 04/10/2019 Sexual Sexually active: Yes. Number of lifetime partners: 2. Self described orientation: Straight or heterosexual., 04/08/2019 Substance Abuse Use: Never., 04/08/2019 Tobacco Tobacco Use: Former smoker, quit more than 30 days ago. Stopped at age: 57 Years., 04/09/2019 Family History Asthma: Father. Bladder cancer: Negative: Mother, Father and Grandparent. Breast cancer: Sister. Cancer: Mother. Heart attack: Mother. Heart disease: Negative: Mother, Father and Grandparent. Hemophilia: Father. Hypertension: Negative: Mother, Father and Grandparent. Kidney stone: Negative: Mother, Father, Sister, Brother, Daughter, Son and Grandparent. Prostate cancer: Negative: Father and Grandparent. Renal cancer: Negative: Mother, Father and Grandparent. Rheumatoid arthritis: Mother. Immunizations pneumococcal 13-valent conjugate vaccine: 0 unknown unit (06/05/16) pneumococcal 23-valent vaccine(Pneumovax: 0 unknown unit (06/27/13) tetanus/diphth/pertuss (Tdap) adult/adol: 0 unknown unit (06/27/13) Code Status Code Status - Ordered -- 08/27/22 14:45:00 EST, Full Code, Constant Order Digitally Signed by LIN SANABRIA MD on 08/27/2022 05:31 PM [facility] 08-27-2022 Note ORIGINAL EXAMINATION: ONE XRAY VIEW OF THE CHEST08/27/2022 3:19 pm CHEST ONE VIEW AP/PA COMPARISON: 08/27/2022 HISTORY: ORDERING SYSTEM PROVIDED HISTORY: Reason for Exam: Chest Pain FINDINGS: The cardiomediastinal contours are normal. Sternotomy wires are present. There is bibasilar atelectasis. There is no pleural effusion or pneumothorax. no acute osseous abnormality. IMPRESSION: No acute radiographic findings. Interpreted by: Prabha Hammond MD Preliminary Report By: Prabha Hammond MD Electronically signed By Prabha Hammond MD Dictated Date: 08/27/2022 3:33:25 PM Prelim Date: 08/27/2022 3:34:15 PM Sign Date: 08/27/2022 3:34:15 PM [facility]-27-[facility] Note ORIGINAL EXAMINATION: ONE XRAY VIEW OF THE CHEST08/27/2022 3:19 pm CHEST ONE VIEW AP/PA COMPARISON: 08/27/2022 HISTORY: ORDERING SYSTEM PROVIDED HISTORY: Reason for Exam: Chest Pain FINDINGS: The cardiomediastinal contours are normal. Sternotomy wires are present. There is bibasilar atelectasis. There is no pleural effusion or pneumothorax. no acute osseous abnormality. IMPRESSION: No acute radiographic findings. Interpreted by: Prabha Hammond MD Preliminary Report By: Prabha Hammond MD Electronically signed By Prabha Hammond MD Dictated Date: 08/27/2022 3:33:25 PM Prelim Date: 08/27/2022 3:34:15 PM Sign Date: 08/27/2022 3:34:15 PM Ordering Provider: [facility] 08-27-2022 Evaluation + Plan note Extrac jen from: Title:Cardiology Author:LIN SANABRIA MD Date:1 10/28/21 NSTEMI HERBERT on CKD stage III History of CAD status post CABG [2009] History of diabetes mellitus History of hypertension History of hyperlipidemia History of JEREMIAS on CPAP DVT prophylaxis CODE STATUS: Full code Patient is a 76-year-old Scottish-speaking male with a past medical history of type 2 diabetes mellitus, hypertension, hyperlipidemia and JEREMIAS on CPAP who presented with chest pain. Patient presented to [facility] and was found to have a troponin level of 10,[address] segment changes. He was then transferred to [facility] for further evaluation and management. Patient's EKG showed nonspecific ST segment changes with positive troponin at [facility]. Patient was treated with nitroglycerin and morphine for chest pain. Patient continues to have midsternal pressure-like chest pain. We will order troponin x2 on follow-up to see repeated levels and serial EKG. Based on these repeat troponin levels and EKGs. We will start patient on heparin by weight We will resume patient's home medication for hyperlipidemia [ezetimibe] We will start patient on insulin sliding scale for diabetes mellitus. We will order echocardiogram. We will risk stratify patient with TSH, A1c and lipids. We will order proBNP. We will continue patient on home dose of aspirin. We will start patient on nitroglycerin as needed chest pain. Patient will be kept n.p.o. Patient is scheduled for cardiac catheterization, risk of contrast nephropathy was discussed with patient and he understood the risk and agreed to move forward with cardiac catheterization. DVT prophylaxis: Heparin by weight CODE STATUS: Full code Case and management of patient was discussed with Dr. Early, if there are any changes to be made to the plan above please see addendum below. Addendum by LAURA EARLY MD on August 27, 2022 19:43:27 EST I have personally seen, examined, and evaluated the patient on the encounter date. I have reviewed the resident's documentation and agree with the resident's findings and plan as documented, unless otherwise stated. Patient seen urgently for ongoing CP on max tolerated medical therapy Presented to [facility] with CP similar to his precabg pain , has RICHMOND to LAD and D; radial to OM; SVG to PDA and acute marginal of RCA [facility] EKG shows lateral ST depression on the setting of RBB -primary ischemic change - these not seen on EKG done here but ongoing CP of 03/19 - NTG didnt make him feel good when given in [facility], SBP 100s here No SOB,orthopnea GFR in 40s , 50-60s before No bleeding issues JVp nml ,clear lungs without rhonchi ; nml S1 and S2 without rub,gallop or murmur; Abd soft, nml bowel sounds, no organomegaly ;Neuro5/5power all 4 extremities; no facial droop ; Skin no rashes,ulcers; psychiatric good judgement and insight ; musculoskeletal good ROM of both elbows and wrists NSTEMI : suspect lesion in RADIAL TO OM or RICHMOND to DIAG given lateral ischemic changes; CATH PRESLEY, notified oncall interventional ; TTE ; continue heparin gtt; CHECKS LIPIDS, HBA1C HLD CKD stage 3 DM HTN JEREMIAS on CPAP OBESITY Future Appointments Appointment Date:09/07/2022 08:30:00 AM Scheduled Provider:SHON HERRERA DO Location:[facility] Appointment Type:PC OV Pre Op Appointment Date:09/20/2022 10:20:00 AM Scheduled Provider:DI AYOUB Location:UROLOGY Appointment Type:URO OV Physical 20 min Appointment Date:10/30/2022 10:35:00 AM Scheduled Provider:SHON HERRERA DO Location:[facility] Appointment Type:PC OV Appointment Date:01/29/2023 09:00:00 AM Scheduled Provider:MARGARITO RIVERO [facility] Appointment Type:CV OV Appointment Date:02/19/2023 08:30:00 AM Scheduled Provider: Location:[facility] Appointment Type:DB Diabetic Individual Visit (AOH) Future Scheduled Tests Laboratory* Basic Metabolic Panel 07/25/22 * Prostate Specific Antigen 10/13/21 * Complete Blood Count 07/25/22 * Lipid Profile 10/13/21 * Complete Metabolic Panel 10/13/21 [facility] 12-18-2022 SARS-CoV-2 (COVID-19) RNA ZAINA+probe Ql (Nph) Negative *NA* (08/27/22 11:22 AM)AO Auto Urine [id number] Note ORIGINAL EXAMINATION: TWO XRAY VIEWS OF THE CHEST 08/27/2022 10:55 am COMPARISON: None. HISTORY: ORDERING SYSTEM PROVIDED HISTORY: Reason for Exam: Chest Pain FINDINGS: The cardiomediastinal silhouette is normal. Median sternotomy wires and mediastinal surgical clips are identified. There is linear airspace disease at the left base favoring atelectasis or scarring. No pleural effusion, vascular congestion, or pneumothorax. Right shoulder prosthesis. Multilevel degenerative changes are identified in the spine. IMPRESSION: Mild left basilar scarring or atelectasis. Interpreted by: Angeles Cortes MD Preliminary Report By: Angeles Cortes MD Electronically signed By Angeles Cortes MD Dictated Date: 08/27/2022 10:56:40 AM Prelim Date: 08/27/2022 10:57:39 AM Sign Date: 08/27/2022 10:57:39 AM Ordering Provider: SEVEN LOZOYA [facility]12-18-2022 Note ORIGINAL EXAMINATION: TWO XRAY VIEWS OF THE CHEST 08/27/2022 10:55 am COMPARISON: None. HISTORY: ORDERING SYSTEM PROVIDED HISTORY: Reason for Exam: Chest Pain FINDINGS: The cardiomediastinal silhouette is normal. Median sternotomy wires and mediastinal surgical clips are identified. There is linear airspace disease at the left base favoring atelectasis or scarring. No pleural effusion, vascular congestion, or pneumothorax. Right shoulder prosthesis. Multilevel degenerative changes are identified in the spine. IMPRESSION: Mild left basilar scarring or atelectasis. Interpreted by: Angeles Cortes MD Preliminary Report By: Angeles Cortes MD Electronically signed By Angeles Cortes MD Dictated Date: 08/27/2022 10:56:40 AM Prelim Date: 08/27/2022 10:57:39 AM Sign Date: 08/27/2022 10:57:39 AM [facility] Appointment Date:01/10/2022 08:00:00 AM Scheduled Provider: Location:[facility] Appointment Type:DB Diabetic Individual Visit Appointment Date:01/12/2022 08:15:00 AM Scheduled Provider:SHON HERRERA DO Location:[facility] Appointment Type:PC OV Appointment Date:04/13/2022 08:30:00 AM Scheduled Provider:SHON HERRERA DO Location[facility] Appointment Type:PC Wellness Medicare Appointment Date:07/24/2022 09:30:00 AM Scheduled Provider:MARGARITO RIVERO Location[facility] Appointment Type:CV OV Future Scheduled Tests Laboratory* Prostate Specific Antigen 2/3/22 * Lipid Profile 2/3/22 * Complete Metabolic Panel 2/322 Radiology* XR Spine Lumbar AP/LAT 05/26/21 [facility] Evaluation + Plan note Future Appointments Appointment Date:07/21/2022 08:30:00 AM Scheduled Provider: Location:[facility] Appointment Type:DB Diabetic Individual Visit Appointment Date:07/24/2022 09:30:00 AM Scheduled Provider:MARGARITO RIVERO Location:[facility] Appointment Type:CV OV Appointment Date:10/30/2022 10:35:00 AM Scheduled Provider:SHON HERRERA DO Location:[facility] Appointment Type:PC OV Future Scheduled Tests Laboratory* Prostate Specific Antigen 2/3/22 * Lipid Profile 2/3/22 * Complete Metabolic Panel 2/322 Radiology* XR Spine Lumbar AP/LAT 05/26/21 [facility] Evaluation + Plan note Future Appointments Appointment Date:07/27/2022 08:30:00 AM Scheduled Provider: Location:[facility] Appointment Type:PT [facility] Appointment Date:07/31/2022 09:00:00 AM Scheduled Provider: Location:[facility] Appointment Type:PT [facility] Appointment Date:08/04/2022 01:30:00 PM Scheduled Provider: Location:[facility] Appointment Type:[facility] Appointment Date:10/30/2022 10:35:00 AM Scheduled Provider:SHON HERRERA DO Location:[facility] Appointment Type:PC OV Appointment Date:01/29/2023 09:00:00 AM Scheduled Provider:MARGARITO RIVERO Location:[facility] Appointment Type:CV OV Appointment Date:02/19/2023 08:30:00 AM Scheduled Provider: Location:[facility] Appointment Type:DB Diabetic Individual Visit (AOH) Future Scheduled Tests Laboratory* Basic Metabolic Panel 07/25/22 * Prostate Specific Antigen 10/13/21 * Complete Blood Count 07/25/22 * Lipid Profile 10/13/21 * Complete Metabolic Panel 10/13/21 [facility] Evaluation + Plan note Future Appointments Appointment Date:10/30/2022 10:35:00 AM Scheduled Provider:SHON HERRERA DO Location:[facility] Appointment Type:PC OV Appointment Date:01/29/2023 09:00:00 AM Scheduled Provider:MARGARITO RIVERO Location:[facility] Appointment Type:CV OV Appointment Date:02/19/2023 08:30:00 AM Scheduled Provider: Location:[facility] Appointment Type:DB Diabetic Individual Visit (AO) Future Scheduled Tests Laboratory* Basic Metabolic Panel 07/25/22 * Prostate Specific Antigen 10/13/21 * Complete Blood Count 07/25/22 * Lipid Profile 10/13/21 * Complete Metabolic Panel 10/13/21 [facility] Evaluation + Plan note Future Appointments Appointment Date:09/07/2022 08:30:00 AM Scheduled Provider:SHON HERRERA DO Location:[facility] Appointment Type:PC OV Pre Op Appointment Date:09/20/2022 10:20:00 AM Scheduled Provider:DI AYOUB Location:UROLOGY Appointment Type:URO OV Physical 20 min Appointment Date:10/30/2022 10:35:00 AM Scheduled Provider:SHON HERRERA DO Location:[facility] Appointment Type:PC OV Appointment Date:01/29/2023 09:00:00 AM Scheduled Provider:MARGARITO RIVERO Location:[facility] Appointment Type:CV OV Appointment Date:02/19/2023 08:30:00 AM Scheduled Provider: Location:[facility] Appointment Type:DB Diabetic Individual Visit (AOH) Future Scheduled Tests Laboratory* Basic Metabolic Panel 07/25/22 * Prostate Specific Antigen 10/13/21 * Complete Blood Count 07/25/22 * Lipid Profile 10/13/21 * Complete Metabolic Panel 10/13/21 [facility] Evaluation + Plan note Future Appointments Appointment Date:10/30/2022 10:35:00 AM Scheduled Provider:SHON HERRERA DO Location:[facility] Appointment Type:PC OV Appointment Date:11/08/2022 10:30:00 AM Scheduled Provider:MARGARITO RIVERO Location:[facility] Appointment Type:CV OV Appointment Date:01/29/2023 09:00:00 AM Scheduled Provider:MARGARITO RIVERO Location:[facility] Appointment Type:CV OV Appointment Date:02/19/2023 08:30:00 AM Scheduled Provider: Location:[facility] Appointment Type:DB Diabetic Individual Visit (AOH) Appointment Date:03/16/2023 10:20:00 AM Scheduled Provider:SIRENA DUNAWAY Location:UROLOGY Appointment Type:URO OV 20 min Future Scheduled Tests Laboratory* Basic Metabolic Panel 07/25/22 * Complete Blood Count 07/25/22 [facility] Evaluation + Plan note Future Appointments Appointment Date:07/13/2023 09:20:00 AM Scheduled Provider:SHON HERRERA DO Location:[facility] Appointment Type:PC OV Appointment Date:08/13/2023 09:30:00 AM Scheduled Provider:MARGARITO RIVERO Location:[facility] Appointment Type:CV OV Appointment Date:08/22/2023 09:00:00 AM Scheduled Provider: Location:[facility] Appointment Type:DB Diabetic Individual Visit (AOH) Diagnostic Tests Pending * Urine Culture 05/31/23 Future Scheduled Tests Laboratory* Basic Metabolic Panel 07/25/22 * Basic Metabolic Panel 04/18/23 * Prostate Specific Antigen 05/30/23 * Complete Blood Count 07/25/22 * Complete Blood Count 04/18/23 * Lipid Profile 01/29/23 * Lipid Profile 05/30/23 * Complete Metabolic Panel 05/30/23 [facility] Evaluation + Plan note Future Appointments Appointment Date:01/11/2024 09:20:00 AM Scheduled Provider:SHON HERRERA DO Location:[facility] Appointment Type:PC OV Appointment Date:02/19/2024 09:30:00 AM Scheduled Provider:MARGARITO RIVERO Location:[facility] Appointment Type:CV OV Appointment Date:02/21/2024 09:00:00 AM Scheduled Provider: Location:[facility] Appointment Type:MEDS - Diabetic Individual Visit Future Scheduled Tests Laboratory* Basic Metabolic Panel 04/18/23 * Prostate Specific Antigen 05/30/23 * Complete Blood Count 01/11/24 * Complete Blood Count 04/18/23 * Lipid Profile 01/11/24 * Lipid Profile 05/30/23 * Complete Metabolic Panel 01/11/24 * Complete Metabolic Panel 05/30/23 [facility] Evaluation + Plan note Future Appointments Appointment Date:01/11/2024 09:20:00 AM Scheduled Provider:SHON HERRERA DO Location:[facility] Appointment Type:PC OV Appointment Date:02/19/2024 09:30:00 AM Scheduled Provider:MARGARITO RIVERO Location:[facility] Appointment Type:CV OV Appointment Date:02/21/2024 09:00:00 AM Scheduled Provider: Location:[facility] Appointment Type:MEDS - Diabetic Individual Visit Future Scheduled Tests Laboratory* Basic Metabolic Panel 04/18/23 * Prostate Specific Antigen 05/30/23 * Complete Blood Count 01/11/24 * Complete Blood Count 04/18/23 * Lipid Profile 05/30/23 * Complete Metabolic Panel 01/11/24 * Complete Metabolic Panel 05/30/23 [facility] Evaluation + Plan note Future Appointments Appointment Date:01/30/2024 10:30:00 AM Scheduled Provider:SHON HERRERA DO Location:[facility] Appointment Type:PC OV Appointment Date:02/19/2024 09:30:00 AM Scheduled Provider:MARGARITO RIVERO Location:[facility] Appointment Type:CV OV Appointment Date:02/21/2024 09:00:00 AM Scheduled Provider: Location:[facility] Appointment Type:MEDS - Diabetic Individual Visit Future Scheduled Tests Laboratory* Basic Metabolic Panel 04/18/23 * Prostate Specific Antigen 05/30/23 * Complete Blood Count 01/11/24 * Complete Blood Count 04/18/23 * Lipid Profile 05/30/23 * Complete Metabolic Panel 01/11/24 * Complete Metabolic Panel 05/30/23 Radiology* CT Spine Lumbar w/o Contrast 01/23/24 [facility] Evaluation + Plan note Future Appointments Appointment Date:08/21/2024 09:30:00 AM Scheduled Provider: Location:[facility] Appointment Type:MEDS - Diabetic Individual Visit Appointment Date:08/26/2024 10:30:00 AM Scheduled Provider:MARGARITO RIVERO Location:[facility] Appointment Type:CV OV Appointment Date:11/20/2024 10:30:00 AM Scheduled Provider:SHON HERRERA DO Location:[facility] Appointment Type:PC OV Future Scheduled Tests Laboratory* Prostate Specific Antigen 05/30/23 * Complete Blood Count 01/11/24 * Complete Blood Count 05/29/24 * Lipid Profile 05/30/23 * Lipid Profile 05/29/24 * Albumin/Creatinine Ratio, Random Urine 02/21/24 * Complete Metabolic Panel 01/11/24 * Complete Metabolic Panel 05/30/23 * Complete Metabolic Panel 05/29/24 Radiology* XR Hip 3-4 Views Bilateral 02/05/24 * CT Spine Lumbar w/o Contrast 01/23/24 [facility] evaluation + Plan note Future Appointments Appointment Date:01/27/2025 12:10:00 PM Scheduled Provider:SEVEN HOPPER MD Location:UROLOGY Appointment Type:URO OV Physical Appointment Date:02/04/2025 12:40:00 PM Scheduled Provider: Location[place] [place] Appointment Type:[facility] Appointment Date:02/19/2025 09:30:00 AM Scheduled Provider: Location:[facility] Appointment Type:MEDS - Diabetic Individual Visit Appointment Date:02/25/2025 11:00:00 AM Scheduled Provider:MARGARITO RIVERO Location:[facility] Appointment Type:CV OV Appointment Date:03/06/2025 02:00:00 PM Scheduled Provider:SIRENA DUNAWAY Location:UROLOGY Appointment Type:URO OV Post Op Appointment Date:06/01/2025 09:30:00 AM Scheduled Provider:SHON HERRERA DO Location:[facility] Appointment Type: Wellness Medicare with Labs Future Scheduled Tests Laboratory* Basic Metabolic Panel 12/16/24 * Complete Blood Count 01/11/24 * Complete Blood Count 05/29/24 * Complete Blood Count 12/16/24 * Lipid Profile 05/23/25 * Lipid Profile 05/29/24 * Albumin/Creatinine Ratio, Random Urine 02/21/24 * Complete Metabolic Panel 01/11/24 * Complete Metabolic Panel 05/23/25 * Complete Metabolic Panel 05/29/24 Radiology* XR Hip 3-4 Views Bilateral 02/05/24 * CT Spine Lumbar w/o Contrast 01/23/24 [facility] Evaluation + Plan note Future Appointments Appointment Date:01/19/2025 01:30:00 PM Scheduled Provider:MARGARITO RIVERO Location:[facility] Appointment Type:CV OV Appointment Date:01/27/2025 12:10:00 PM Scheduled Provider:SEVEN HOPPER MD Location:UROLOGY Appointment Type:URO OV Physical Appointment Date:02/04/2025 01:30:00 PM Scheduled Provider: Location:[facility] [place] Appointment Type:[facility] Appointment Date:02/19/2025 09:30:00 AM Scheduled Provider: Location:[facility] Appointment Type:MEDS - Diabetic Individual Visit Appointment Date:02/25/2025 11:00:00 AM Scheduled Provider:MARGARITO RIVERO Location:[facility] Appointment Type:CV OV Appointment Date:03/06/2025 02:00:00 PM Scheduled Provider:SIRENA DUNAWAY Location:UROLOGY Appointment Type:URO OV Post Op Appointment Date:06/01/2025 09:30:00 AM Scheduled Provider:SHON HERRERA DO Location:[facility] Appointment Type:PC Wellness Medicare with Labs Future Scheduled Tests Laboratory* Basic Metabolic Panel 12/16/24 * Complete Blood Count 01/11/24 * Complete Blood Count 05/29/24 * Complete Blood Count 12/16/24 * Lipid Profile 05/23/25 * Lipid Profile 05/29/24 * Albumin/Creatinine Ratio, Random Urine 02/21/24 * Complete Metabolic Panel 01/11/24 * Complete Metabolic Panel 05/23/25 * Complete Metabolic Panel 05/29/24 Radiology* XR Hip 3-4 Views Bilateral 02/05/24 * CT Spine Lumbar w/o Contrast 01/23/24 [facility] Evaluation + Plan note Future Appointments Appointment Date:01/27/2025 12:10:00 PM Scheduled Provider:SEVEN HOPPER MD Location:UROLOGY Appointment Type:URO OV Physical Appointment Date:02/04/2025 01:30:00 PM Scheduled Provider: Location:[facility] [place] Appointment Type:Sur[facility] - [facility] Appointment Date:02/19/2025 09:30:00 AM Scheduled Provider: Location:[facility] Appointment Type:MEDS - Diabetic Individual Visit Appointment Date:02/19/2025 11:15:00 AM Scheduled Provider:MARGARITO RIVERO Location:[facility] Appointment Type:CV OV Appointment Date:02/25/2025 11:00:00 AM Scheduled Provider:MARGARITO RIVERO Location:[facility] Appointment Type:CV OV Appointment Date:03/06/2025 02:00:00 PM Scheduled Provider:SIRENA DUNAWAY Location:UROLOGY Appointment Type:URO OV Post Op Appointment Date:06/01/2025 09:30:00 AM Scheduled Provider:SHON HERRERA DO Location:[facility] Appointment Type:PC Wellness Medicare with Labs Future Scheduled Tests Laboratory* Basic Metabolic Panel 12/16/24 * Complete Blood Count 01/11/24 * Complete Blood Count 05/29/24 * Complete Blood Count 12/16/24 * Lipid Profile 05/23/25 * Lipid Profile 05/29/24 * Albumin/Creatinine Ratio, Random Urine 02/21/24 * Complete Metabolic Panel 01/11/24 * Complete Metabolic Panel 05/23/25 * Complete Metabolic Panel 05/29/24 Radiology* NM Myocardial Spect Rest/Stress 01/19/25 * XR Hip 3-4 Views Bilateral 02/05/24 * CT Spine Lumbar w/o Contrast 01/23/24 [facility] Hospital course Narrative No data available for this section [facility] Hospital Discharge instructions No data available for this section [facility] Note* MD DARELL, SEVEN FELDER: SIGN, VERIFY Event Display: EKG [ED AOH] - CV Authored Date: [id number] * MD DARELL, SEVEN FELDER: SIGN, VERIFY Event Display: EKG [ED AOH] - CV Authored Date: [id number] [facility] Progress note No data available for this section [facility] Summary Purpose Family History No Family History Records FoundThere may be information available, but it has not been provided by the sender. No data available for this section No data available for this section No data available for this section No data available for this section No data available for this section No data available for this section No data available for this section No Family History Records Found No data available for this section No data available for this section No Family History Records Found No data available for this section No data available for this section No Family History Records FoundNo Family History Records Found Advance Directives No Advanced Directives Records FoundThere may be information available, but it has not been provided by the sender.No Advanced Directives Records FoundNo Advanced Directives Records FoundNo Advanced Directives Records FoundNo Advanced Directives Records Found Chief Complaint Chief Complaint Description Start Date left ankle post Total ankle arthroplasty - left ankle and lateral ligament reconstruction on 11/08/2018 Preliminary chief co mplaint data, not yet signed by the author as of Instructions Instruction Description Start Date CompletedPlease follow-up wi th Primary Care Physician or Emergency Response Technician for treatment or adjustment of medication regarding elevated blood pressure.Patient advised to follow-up with Primary Care Physician for BMI management. Assessments There may be information available, but it has not been provided by the sender. Review of System There may be information available, but it has not been provided by the sender. History of Present Illness There may be information available, but it has not been provided by the sender. Additional Source Comments (unrecognized sect ion and content) No Status Records FoundNo Status Records FoundNo Status Records FoundNo Status Records FoundNo Status Records Found INFORMATION SOURCE (unrecogn ized section and content) DATE CREATED AUTHOR 03/05/2018 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 Care Team (unrecognized sect ion and content) Personnel Name: SHON HERRERA DO Address: [address] Name: Domo García Clederek Medeiros PT Care Team Personnel Name: Domo García PT Position: P3 Scheduling - Wood Heel Cementer Advanced Member Role: Other Name: SHON HERRERA DO Position: P4 Physician - Primary Care Member Role: Primary Care Physician Address: Address: [address] Name: KATELYN BRAVO DO Position: ED Physician Member Role: Attending Physician Address: Address: [address] [place] [address]- Name: Mitzi Alaniz Position: P3 Registration- Truck Crane Operator Helper Name: Zuleika Joseph RN Position: ED RN Member Role: ED BRAKE LINING DRILLER Care Team Related Persons Name: AMELIA RUTLEDGENA L Care Team Personnel Name: Raquel, Drawing Tracer Mala PT Position: P3 Scheduling - Wood Heel Cementer Advanced Member Role: Other Name: SHON HERRERA DO Position: P4 Physician - Primary Care Member Role: Primary Care Physician Address: Address: [address] Care Team Related Persons Name: MATY, CHESTER L Care Team Personnel Name: Raquel, Drawing Tracer Mala PT Position: P3 Scheduling - Wood Heel Cementer Advanced Member Role: Other Name: SHON HERRERA DO Position: P4 Physician - Primary Care Member Role: Primary Care Physician Address: Address: [address] [place] [address]- Care Team Related Persons Name: MATY, CHESTER L Care Team Personnel Name: Raquel, Drawing Tracer Mala PT Position: P3 Scheduling - Wood Heel Cementer Advanced Member Role: Other Name: SHON HERRERA DO Position: P4 Physician - Primary Care Member Role: Primary Care Physician Address: Address: [address] Care Team Related Persons Name: MATY, CHESTER L Care Team Personnel Name: Raquel, Drawing Tracer Mala PT Position: P3 Scheduling - Wood Heel Cementer Advanced Member Role: Other Name: SHON HERRERA DO Position: P4 Physician - Primary Care Member Role: Primary Care Physician Address: Address: [address] Care Team Related Persons Name: MATY, CHESTER L Care Team Personnel Name: Raquel, Drawing Tracer Mala PT Position: P3 Scheduling - Wood Heel Cementer Advanced Member Role: Other Name: SHON HERRERA DO Position: P4 Physician - Primary Care Member Role: Primary Care Physician Address: Address: [address] [place] [address]- Care Team Related Persons Name: CHESTER RUTLEDGE L Care Team Personnel Name: Raquel Drawing Tracer Mala PT Position: P3 Scheduling - Wood Heel Cementer Advanced Member Role: Other Name: SHON HERRERA DO Position: P4 Physician - Primary Care Member Role: Primary Care Physician Address: Address: [address] Care Team Related Persons Name: CHESTER RUTLEDGE L Care Team Personnel Name: Raquel Drawing Tracer Mala PT Position: P3 Scheduling - Wood Heel Cementer Advanced Member Role: Other Name: SHON HERRERA DO Position: P4 Physician - Primary Care Member Role: Primary Care Physician Address: Address: [address] Care Team Related Persons Name: AMELIA RUTLEDGENA L Care Team Personnel Name: Raquel Drawing Tracer Mala PT Position: P3 Scheduling - Wood Heel Cementer Advanced Member Role: Other Name: SHON HERRERA DO Position: P4 Physician - Primary Care Member Role: Primary Care Physician Address: [address] Telecom: Care Team Related Persons Name: CHESTER RUTLEDGE Care Team Personnel Name: Raquel Drawing Tracer Mala PT Position: P3 Scheduling - Wood Heel Cementer Advanced Member Role: Other Name: SHON HERRERA DO Position: P4 Physician - Primary Care Member Role: Primary Care Physician Address: [address] Telecom: Care Team Related Persons Name: AMELIA RUTLEDGENA L Care Team Personnel Name: Raquel Drawing Tracer Mala PT Position: P3 Scheduling - Wood Heel Cementer Advanced Member Role: Other Name: SHON HERRERA DO Position: P4 Physician - Primary Care Member Role: Primary Care Physician Address: [address] Telecom: Care Team Related Persons Name: CHESTER RUTLEDGE Care Team (unrecognized sect ion and content) Care Team Personnel Name: Raquel Drawing Tracer Mala PT Position: P3 Scheduling - Wood Heel Cementer Advanced Member Role: Other Name: SHON HERRERA DO Position: P4 Physician - Primary Care Med Service: Active Provider Member Role: Primary Care Physician Address: Address: [address] [place] [address]- Care Team Related Persons Name: CHESTER RUTLEDGE Care Team Personnel Name: [place], Drawing Tracer Mala PT Position: P3 Scheduling - Wood Heel Cementer Advanced Member Role: Other Name: SHON HERRERA DO Position: P4 Physician - Primary Care Member Role: Primary Care Physician Address: Address: [address] [place] [address] Care Team Related Persons Name: CHESTER RUTLEDGE Care Team Personnel Name: Raquel Drawing Tracer Mala PT Position: P3 Scheduling - Wood Heel Cementer Advanced Member Role: Other Name: SHON HERRERA DO Position: P4 Physician - Primary Care Member Role: Primary Care Physician Address: Address: [address] [place] [address]- Care Team Related Persons Name: CHESTER RUTLEDGE Care Team Personnel Name: Raquel Drawing Tracer Mala PT Position: P3 Scheduling - Wood Heel Cementer Advanced Member Role: Other Name: SHON HERRERA DO Position: P4 Physician - Primary Care Member Role: Primary Care Physician Address: Address: [address] [place] [address]- Name: MD DARELL, SEVEN FELDER Position: ED Physician Member Role: ED Physician Address: Address: [address] [place] [address]- Name: Suzi Maurer RN Position: AO RN Member Role: ED RN Care Team Related Persons Name: CHESTER RUTLEDGE Care Team Personnel Name: Raquel, Drawing Tracer Mala PT Position: P3 Scheduling - Wood Heel Cementer Advanced Member Role: Other Name: TYREE, SHON A DO Position: P4 Physician - Primary Care Member Role: Primary Care Physician Address: Address: [facility] [place] [address]- Care Team Related Persons Name: CHESTER RUTLEDGE Care Team Personnel Name: Raquel Drawing Tracer Mala PT Position: P3 Scheduling - Wood Heel Cementer Advanced Member Role: Other Name: SHON HERRERA DO Position: P4 Physician - Primary Care Member Role: Primary Care Physician Address: Address: [facility] [place] [address]- Care Team Related Persons Name: CHESTER RUTLEDGE Care Team Personnel Name: Raquel, Drawing Tracer Mala PT Position: P3 Scheduling - Wood Heel Cementer Advanced Member Role: Other Name: SHON HERRERA DO Position: P4 Physician - Primary Care Member Role: Primary Care Physician Address: Address: [facility] [place] [address]- Care Team Related Persons Name: CHESTER RUTLEDGE FOR RECORDS PERTAINING TO PATIENTS WHO ARE OR HAVE BEEN ENROLLED IN A CHEMICAL DEPENDENCY/SUBSTANCEABUSE PROGRAM, SOME INFORMATION MAY BE OMITTED. This clinical summary was aggregated from multiple sources. Caution should be exercised in using it in the provision of clinical care. This summary normalizes information from multiple sources, and as a consequence, information in this document may materially change the coding, format and clinical context of patient data. In addition, data may be omitted in some cases. CLINICAL DECISIONS SHOULD BE BASED ON THE PRIMARY CLINICAL RECORDS. [employer] provides no warranty or guarantee of the accuracy or completeness of information in this document.
--- NOTE | 2025-02-19 13:53 | STRESSREP ---
Stress Test Report Date: 02/19/2025 Procedure: Pharmacologic stress nuclear imaging study Indications: Dyspnea, coronary artery disease Consent: Per the patient Procedure: The patient underwent pharmacologic (Regadenoson 0.4mg ) evaluation with a peak heart rate of 94 beats per minute (66%predicted maximal heart rate) and a peak blood pressure of 158/96 mmHg. The baseline ECG demonstrated sinus rhythm with right bundle branch block. The peak pharmacologic ECG was nondiagnostic secondary to baseline abnormalities. Frequent PVCs noted pretest, during pharmacologic infusion and in recovery. There was no complaint of chest discomfort during pharmacologic infusion or recovery. The patient was injected with 13.9 millicuries of technetium 99m Cardiolite and subsequently rest SPECT Cardiolite nuclear imaging was obtained in the horizontal long, vertical long, and short axis views. The patient underwent pharmacologic (Regadenoson) evaluation. The patient was injected with 44.5 millicuries of technetium 99m Cardiolite and subsequently stress SPECT Cardiolite nuclear imaging was obtained in the horizontal long, vertical long, and short axis views. A gated Cardiolite study at peak stress was obtained. The examination was stopped secondary to completion of protocol. Rest and stress SPECT Cardiolite nuclear imaging status post realignment, normalization, and attenuation correction demonstrate moderate size reversible perfusion defect of the lateral wall suggestive of moderate ischemia. Gated Cardiolite images reveal severe LV systolic dysfunction with estimated LVEF 28%. Impression: 1. Pharmacologic (Regadenoson) evaluation 2. Peak pharmacologic ECG with no diagnostic changes. 3. Frequent PVCs noted pretest, during pharmacologic infusion and in recovery. 5. Moderate size lateral reversible perfusion defect of moderate intensity, suggestive of moderate ischemia. 6. The gated Cardiolite study reports an LVEF of 28%. This note was generated with [employer] software. It may contain incorrect words, spelling, and punctuation that were not noted in checking the note before signing.
== END | disposition home or self-care (01) ==
PROVIDERS: PCP Family Medicine; Referring Provider Nurse Practitioner Family; Visit Provider Nurse Practitioner Family
DX: R06.02 Shortness of breath (principal); I49.3 Ventricular premature depolarization; I25.10 Atherosclerotic heart disease of native coronary artery without angina pectoris; I10 Essential (primary) hypertension; G47.33 Obstructive sleep apnea (adult) (pediatric)
CPT/HCPCS: 78452; 93017; A9500; A4216; J2785